=== PATIENT | female | born 1955 | race American Indian/Alaskan Native ===

== ENCOUNTER 2017-01-23 12:58 | Day surgery (SDC) | payer OTHER ==
[2017-01-23] MEDS ORDERED: Lidocaine 1% 30 ML SDV INJECT ONE ×4 (12:59→13:59)
[2017-01-23 14:47] VITALS: BP 154/62
--- NOTE | 2017-01-23 15:07 | OR ---
DATE: 01/23/2017 PREOPERATIVE DIAGNOSES: 1. Scalp lipoma. 2. Right shoulder lipoma. POSTOPERATIVE DIAGNOSES: 1. Scalp lipoma. 2. Right shoulder lipoma. PROCEDURES: 1. Removal of scalp lipoma. 2. Removal of right shoulder lipoma. SPECIMENS: 1. Right shoulder lipoma. 2. Scalp lipoma. ESTIMATED BLOOD LOSS: Minimal. ANESTHESIA: Local. COMPLICATIONS: None. SYSTEM ADMINISTRATION ADVISOR SURGEON: Lio [place], PGY-III, . INDICATION FOR PROCEDURE: Earline Oneill is a 61-year-old female who presents with symptoms and signs of lipomas to her posterior scalp and right shoulder. She is requesting removal of these after she has seen Dr. Johnston previously and now wants them removed. The risks and benefits were discussed by Dr. Lazar and myself, and the patient wished to proceed with surgery at this time. DETAILS OF THE PROCEDURE: The patient was brought to the operating room, placed in the left lateral decubitus position. She was prepped and draped in standard sterile fashion. Procedural time-out was performed, and all were in agreement. Local anesthetic was injected over the preplanned incision site over the right shoulder and around the lipoma. Incision was made and carried down the subcutaneous tissues. Electrocautery was used to dissect down to the lipoma. The lipoma was then removed in its entirety dissecting around the outside of the lipoma. This was removed. There was minimal bleeding that was controlled with electrocautery. This was closed with a 2-0 Vicryl and a 4-0 Monocryl with Mastisol, Steri-Strips, and sterile dressings placed. We then turned our attention to the posterior scalp. Local anesthetic was infiltrated. A transverse incision was made and carried down through the subcutaneous tissue. Electrocautery was used for hemostasis. We then dissected around the lipoma in its entirety, and it was removed. This was then closed again with 2-0 Vicryl and 4-0 Monocryl. Hemostasis was reassured prior to closing. Dermabond was placed over top of this. She tolerated the procedure well without any complications. She was transferred back to the recovery area in stable condition. Dr. Trae Lazar was present and scribed for the entire portions of the procedure. [facility] #: [id number]
== END 2017-01-23 14:45 | disposition home or self-care (01) ==
LOC: DL.SDS 12:58 → DL.GSCL 12:58 → EDSTATUS 13:00 → DL.SDS 14:45
PROVIDERS: ATTEND Surgery
DX: D17.0 Benign lipomatous neoplasm of skin and subcutaneous tissue of head, face and neck (principal); D17.21 Benign lipomatous neoplasm of skin and subcutaneous tissue of right arm; I10 Essential (primary) hypertension; E11.9 Type 2 diabetes mellitus without complications; J45.909 Unspecified asthma, uncomplicated; E78.5 Hyperlipidemia, unspecified; Z98.890 Other specified postprocedural states

== ENCOUNTER 2018-09-25 13:32 | Emergency (ER) | payer MEDICAID, OTHER ==
[2018-09-25 13:47] VITALS: BP 132/59
--- NOTE | 2018-09-25 15:05 | CR ---
Clinical history: 63-year-old female emergency department who is "unable to lift right leg". Dictation: AP lateral lumbosacral spine films. Decreased anterior vertical height (hyperflexion compression) L1 vertebral body with associated hypertrophic "buttressing" marginal spurs (intervertebral disc space narrowing T12-L1) unchanged as compared to CT exam to June 2008.. Homogeneous normal age and gender appropriate bone mineral density. Hypertrophic marginal spondylosis nearly all levels of the lumbar spine. No sign of pathologic skeletal lesion, acute lumbar fracture, spondylolisthesis or abnormal intervertebral disc space narrowing. Symmetric spacing normal-appearing SI joints (surgical clips right upper quadrant abdomen). Lung bases clear. CONCLUSION: Old L1 trauma. Chronic hypertrophic arthritic spondylosis. No new plain film abnormality lumbosacral spine.
--- NOTE | 2018-09-26 11:45 | EDM.PDOC ---
Scribed by Johanna Schneider 09/25/18 1489 for Nesha Aguila NP ED HPI GENERAL MEDICAL PROBLEM - General Chief Complaint: Lower Extremity Injury/Pain Stated Complaint: AMBULANCE Time Seen by Provider: 09/25/18 14:16 Source of Information: Reports: Patient, EMS, EMS Notes Reviewed, RN, RN Notes Reviewed History Limitations: Reports: No Limitations - History of Present Illness INITIAL COMMENTS - FREE TEXT/NARRATIVE: Patient presented to ER per [facility] with complaint of not being able to move her right leg. She states it felt heavy She denies any numbness or tingling and denies pain. She also denies any saddle anesthesia. She denies incontinence of urine or bowel. She admits to chronic back pain. She complains of sciatica down right leg last night. She had fever and chills last night. Onset: Gradual Duration: Getting Worse Location: Reports: Lower Extremity, Right Quality: Reports: Ache Severity: Moderate Improves with: Reports: None Worsens with: Reports: None Associated Symptoms: Reports: No Other Symptoms - Related Data Allergies Allergy/AdvReac Type Severity Reaction Status Date / Time No Known Allergies Allergy Verified 09/25/18 13:46 Home Meds: Home Meds Aspirin [Lo-Dose Aspirin EC] 81 mg PO DAILY 02/17/16 [History] Lisinopril 40 mg PO DAILY 02/17/16 [History] Simvastatin [Zocor] 40 mg PO DAILY 02/17/16 [History] Vitamin B Complex/Minerals [Sm Stress Formula+Zinc Tablet] 1 tab PO DAILY [History] glyBURIDE [Glyburide] 10 mg PO BID 02/17/16 [History] metFORMIN [Glucophage] 1,000 mg PO BID 02/17/16 [History] Gabapentin [Neurontin] 600 mg PO TID 11/12/16 [History] sitaGLIPtin Phos/Metformin HCl [Janumet 50-500 MG] 1 each PO DAILY 11/12/16 [ History] Insulin Detemir [Levemir] 15 unit SQ DAILY 01/23/17 [History] Albuterol Sulfate [Proair Hfa] 2 puff INH QID PRN 09/25/18 [History] Atropine Sulfate In 0.9% NaCl [Atropine 0.01%-Ns Eye Drops] 10 ml OP ASDIRECTED 09/25/18 [History] Brimonidine Tartrate 10 ml OP ASDIRECTED 09/25/18 [History] Cholecalciferol (Vitamin D3) [Vitamin D3] 1 tab PO DAILY 09/25/18 [History] Dorzolamide HCl/Timolol Maleat [Dorzolamide-Timolol Eye Drops] 1 drop EYEBOTH ASDIRECTED 09/25/18 [History] Multivitamin-Min/Iron/FA/Vit K [Multi-Day Plus Minerals Tablet] 1 tab PO DAILY 09/25/18 [History] Past Medical History HEENT History: Reports: Impaired Vision 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 Cardiovascular History: Reports: High Cholesterol, Hypertension Respiratory History: Reports: Asthma Gastrointestinal History: Reports: None Genitourinary History: Reports: None ORDER PACKER OR PACKAGER History: Reports: None Musculoskeletal History: Reports: Arthritis, Back Pain, Chronic Neurological History: Reports: None Psychiatric History: Reports: None Endocrine/Metabolic History: Reports: Diabetes, Type II Hematologic History: Reports: None Immunologic History: Reports: None Oncologic (Cancer) History: Reports: None Dermatologic History: Reports: None - Infectious Disease History Infectious Disease History: Reports: Chicken Pox - Past Surgical History Head Surgeries/Procedures: Reports: None Other Musculoskeletal Surgeries/Procedures:: fractured back when younger Social & Family History - Tobacco Use Smoking Status *Q: Former Smoker Years of Tobacco use: 41 Packs/Tins Daily: 0.5 Used Tobacco, but Quit: Yes Month/Year Tobacco Last Used: august Second Hand Smoke Exposure: No - Caffeine Use Caffeine Use: Reports: Coffee, Tea - Recreational Drug Use Recreational Drug Use: No Review of Systems - Review of Systems Review Of Systems: ROS reveals no pertinent complaints other than HPI. ED EXAM, GENERAL - Physical Exam Exam: See Below Exam Limited By: No Limitations General Appearance: Alert, WD/WN, No Apparent Distress Eye Exam: Bilateral Eye: EOMI, Normal Inspection, PERRL Ears: Normal External Exam, Normal Canal, Hearing Grossly Normal, Normal TMs Nose: Normal Inspection, Normal Mucosa, No Blood Throat/Mouth: Normal Inspection, Normal Lips, Normal Teeth, Normal Gums, Normal Oropharynx, Normal Voice, No Airway Compromise Head: Atraumatic, Normocephalic Neck: Normal Inspection, Supple, Non-Tender, Full Range of Motion Respiratory/Chest: Crackles (bases bilateral) Cardiovascular: Normal Peripheral Pulses, Regular Rate, Rhythm, No Edema, No Gallop, No JVD, No Murmur, No Rub GI/Abdominal: Normal Bowel Sounds, Soft, Non-Tender, No Organomegaly, No Distention, No Abnormal Bruit, No Mass (Female) Exam: Deferred Rectal (Female) Exam: Deferred Back Exam: Normal Inspection, Full Range of Motion, NT Extremities: Other (Weak right leg. Unable to left leg off bed.) Neurological: Alert, Oriented, CN II-XII Intact, Normal Cognition, Normal Gait, Normal Reflexes, No Motor/Sensory Deficits Psychiatric: Normal Affect, Normal Mood Skin Exam: Warm, Dry, Intact, Normal Color, No Rash Lymphatic: No Adenopathy Course - Vital Signs Last Recorded V/S: Last Vital Signs Temp 97.3 F 09/25/18 13:34 Pulse 88 09/25/18 13:34 Resp 16 09/25/18 13:34 BP 132/59 L 09/25/18 13:34 Pulse Ox 99 09/25/18 13:34 - Radiology Interpretation Free Text/Narrative:: Lumbosacral spine x-ray: Old L1 trauma. Chronic hypertrophic arthritic spondylosis. No new plain film abnormality lumbosacral spine. See rad report. - Re-Assessments/Exams Free Text/Narrative Re-Assessment/Exam: 09/25/18 16:02 Leg heaviness has resolved while being in the ER. Pt is able to lift right leg and hold it up. Able to stand on it and transfer to wheelchair. Departure - Departure Time of Disposition: 16:01 Disposition: Home, Self-Care 01 Condition: Fair Clinical Impression: Right sided sciatica - Discharge Information *PRESCRIPTION DRUG MONITORING PROGRAM REVIEWED*: No *COPY OF PRESCRIPTION DRUG MONITORING REPORT IN PATIENT KALEB: No Instructions: Radicular Pain, Sciatica, [id number] Forms: ED Department Discharge Additional Instructions: Follow up with your primary care facility Do not sleep in the recliner Return to ER with any worsening symptoms I have read and agree with the documentation that has been completed regarding this visit. By signing this record, I attest that the documentation was completed in my physical presence and is an accurate record of the encounter.
== END 2018-09-25 16:16 | disposition home or self-care (01) ==
LOC: DL.ED 13:32
DX: M54.31 Sciatica, right side (principal); E78.00 Pure hypercholesterolemia, unspecified; I10 Essential (primary) hypertension; J45.909 Unspecified asthma, uncomplicated; E11.9 Type 2 diabetes mellitus without complications; Z87.891 Personal history of nicotine dependence; Z79.82 Long term (current) use of aspirin; Z79.899 Other long term (current) drug therapy; Z79.84 Long term (current) use of oral hypoglycemic drugs
CPT/HCPCS: 72100; 99283-25

== ENCOUNTER 2018-10-15 15:35 | Emergency (ER) | payer MEDICAID ==
--- NOTE | 2018-10-15 15:58 | CT ---
Clinical history: 63-year-old female with extremely low blood sugar and multiple falls. TECHNIQUE: Volume acquisition of data emergency unenhanced CT scan of the cervical spine (motion artifact) obtained while the patient was lying supine on the Siemens multi slice scanner [place], [place]. All data archived in the PACS system for storage, reformatting axial/sagittal/coronal planes and study. Interpretation: No sign of prevertebral soft tissue swelling, cervical fracture, spondylolisthesis or jumped locked facet. Reactive atlantoaxial sclerosis and hypertrophic marginal/uncinate spur formation several levels mid and lower cervical spine. Interspace narrowing C6-7. Lung apices clear. CONCLUSION: No fractures.
--- NOTE | 2018-10-15 16:03 | EDM.PDOC ---
<Samuel Fernandez - Last Filed: 10/15/18 20:33> ED HPI GENERAL MEDICAL PROBLEM - General Chief Complaint: Neurological Problem Stated Complaint: AMBULANCE Time Seen by Provider: 10/15/18 15:40 - Related Data Allergies Allergy/AdvReac Type Severity Reaction Status Date / Time No Known Allergies Allergy Verified 10/15/18 15:48 Home Meds: Home Meds Aspirin [Lo-Dose Aspirin EC] 81 mg PO DAILY 02/17/16 [History] Lisinopril 40 mg PO DAILY 02/17/16 [History] Simvastatin [Zocor] 40 mg PO DAILY 02/17/16 [History] Vitamin B Complex/Minerals [Sm Stress Formula+Zinc Tablet] 1 tab PO DAILY [History] glyBURIDE [Glyburide] 10 mg PO BID 02/17/16 [History] metFORMIN [Glucophage] 1,000 mg PO BID 02/17/16 [History] Gabapentin [Neurontin] 600 mg PO TID 11/12/16 [History] sitaGLIPtin Phos/Metformin HCl [Janumet 50-500 MG] 1 each PO DAILY 11/12/16 [ History] Insulin Detemir [Levemir] 15 unit SQ DAILY 01/23/17 [History] Albuterol Sulfate [Proair Hfa] 2 puff INH QID PRN 09/25/18 [History] Atropine Sulfate In 0.9% NaCl [Atropine 0.01%-Ns Eye Drops] 10 ml OP ASDIRECTED 09/25/18 [History] Brimonidine Tartrate 10 ml OP ASDIRECTED 09/25/18 [History] Cholecalciferol (Vitamin D3) [Vitamin D3] 1 tab PO DAILY 09/25/18 [History] Dorzolamide HCl/Timolol Maleat [Dorzolamide-Timolol Eye Drops] 1 drop EYEBOTH ASDIRECTED 09/25/18 [History] Multivitamin-Min/Iron/FA/Vit K [Multi-Day Plus Minerals Tablet] 1 tab PO DAILY 09/25/18 [History] Course - Vital Signs Last Recorded V/S: Last Vital Signs Temp 97.4 F 10/15/18 18:25 Pulse 86 10/15/18 18:25 Resp 18 10/15/18 18:25 BP 155/63 H 10/15/18 18:25 Pulse Ox 100 10/15/18 18:25 - Orders/Labs/Meds Orders: Active Orders 24 hr Category Date Time Status EKG Documentation Completion [RC] STAT Care 10/15/18 17:06 Active EKG Documentation Completion [RC] STAT Care 10/15/18 20:00 Active Labs: Laboratory Tests 10/15/18 10/15/18 10/15/18 Range/Units 15:40 15:59 15:59 WBC 13.3 H (5.0-10.0) 10^3/uL RBC 3.63 L (4.2-5.4) 10^6/uL Hgb 9.2 L D (12.0-16.0) g/dL Hct 28.4 L (37.0-47.0) % MCV 78.2 L D (80-100) fL MCH 25.3 L (27.0-34.0) pg MCHC 32.4 L (33.0-35.0) g/dL Plt Count 515 H D (150-450) 10^3/uL Neut % (Auto) 78.6 H (42.2-75.2) % Lymph % (Auto) 13.5 L (20.5-50.1) % [place] % (Auto) 6.2 (2-8) % Eos % (Auto) 1.5 (1.0-3.0) % Baso % (Auto) 0.2 (0.0-1.0) % PT (9.0-12.0) SEC INR (0.9-1.2) Sodium 129 L (135-145) mmol/L Potassium 3.6 (3.6-5.0) mmol/L Chloride 97 L (101-111) mmol/L Carbon Dioxide 22.0 (21.0-31.0) mmol/L Anion Gap 13.6 BUN 12 (7-18) mg/dL Creatinine 1.1 (0.6-1.3) mg/dL Est Cr Clr Drug Dosing TNP Estimated GFR (MDRD) 50 BUN/Creatinine Ratio 10.90 Glucose 142 H (74-105) mg/dL POC Glucose 177 H (70-105) mg/dl Calcium 7.8 L D (8.4-10.2) mg/dl Magnesium 2.1 (1.8-2.5) mg/dL Total Bilirubin 0.4 (0.2-1.0) mg/dL AST 20 (10-42) IU/L ALT 12 (10-60) IU/L Alkaline Phosphatase 89 (42-121) IU/L Troponin I 0.02 (0.00-0.02) ng/ml Total Protein 7.4 (6.7-8.2) g/dl Albumin 2.6 L (3.2-5.5) g/dl Globulin 4.8 Albumin/Globulin Ratio 0.54 Urine Color (YELLOW) Urine Appearance (CLEAR) Urine pH (5.0-9.0) Ur Specific [place] (1.005-1.030) Urine Protein (NEGATIVE) Urine Glucose (UA) (NEGATIVE) Urine Ketones (NEGATIVE) Urine Occult Blood (NEGATIVE) Urine Nitrite (NEGATIVE) Urine Bilirubin (NEGATIVE) Urine Urobilinogen (0.2-1.0) mg/dL Ur Leukocyte Esterase (NEGATIVE) Urine RBC /HPF Urine WBC (0-5/HPF) /HPF Ur Epithelial Cells (NOT SEEN) /HPF Urine Bacteria (0-FEW/HPF) /HPF Urine Mucus (NOT SEEN) /LPF Urine Opiates Screen (NEGATIVE) Ur Oxycodone Screen (NEGATIVE) Urine Methadone Screen (NEGATIVE) Ur Barbiturates Screen (NEGATIVE) U Tricyclic Antidepress (NEGATIVE) Ur Phencyclidine Scrn (NEGATIVE) Ur Amphetamine Screen (NEGATIVE) U Methamphetamines Scrn (NEGATIVE) Urine MDMA Screen (NEGATIVE) U Benzodiazepines Scrn (NEGATIVE) Urine Cocaine Screen (NEGATIVE) U Marijuana (THC) Screen (NEGATIVE) Ethyl Alcohol < 5 mg/dL 10/15/18 10/15/18 10/15/18 Range/Units 15:59 16:24 16:24 WBC (5.0-10.0) 10^3/uL RBC (4.2-5.4) 10^6/uL Hgb (12.0-16.0) g/dL Hct (37.0-47.0) % MCV (80-100) fL MCH (27.0-34.0) pg MCHC (33.0-35.0) g/dL Plt Count (150-450) 10^3/uL Neut % (Auto) (42.2-75.2) % Lymph % (Auto) (20.5-50.1) % [place] % (Auto) (2-8) % Eos % (Auto) (1.0-3.0) % Baso % (Auto) (0.0-1.0) % PT 10.8 (9.0-12.0) SEC INR 1.1 (0.9-1.2) Sodium (135-145) mmol/L Potassium (3.6-5.0) mmol/L Chloride (101-111) mmol/L Carbon Dioxide (21.0-31.0) mmol/L Anion Gap BUN (7-18) mg/dL Creatinine (0.6-1.3) mg/dL Est Cr Clr Drug Dosing Estimated GFR (MDRD) BUN/Creatinine Ratio Glucose (74-105) mg/dL POC Glucose (70-105) mg/dl Calcium (8.4-10.2) mg/dl Magnesium (1.8-2.5) mg/dL Total Bilirubin (0.2-1.0) mg/dL AST (10-42) IU/L ALT (10-60) IU/L Alkaline Phosphatase (42-121) IU/L Troponin I (0.00-0.02) ng/ml Total Protein (6.7-8.2) g/dl Albumin (3.2-5.5) g/dl Globulin Albumin/Globulin Ratio Urine Color Yellow (YELLOW) Urine Appearance Slightly cloudy (CLEAR) Urine pH 5.5 (5.0-9.0) Ur Specific [place] 1.010 (1.005-1.030) Urine Protein Trace H (NEGATIVE) Urine Glucose (UA) Negative (NEGATIVE) Urine Ketones Negative (NEGATIVE) Urine Occult Blood Small H (NEGATIVE) Urine Nitrite Negative (NEGATIVE) Urine Bilirubin Negative (NEGATIVE) Urine Urobilinogen 0.2 (0.2-1.0) mg/dL Ur Leukocyte Esterase Small H (NEGATIVE) Urine RBC 5-10 H /HPF Urine WBC 10-20 H (0-5/HPF) /HPF Ur Epithelial Cells Few (NOT SEEN) /HPF Urine Bacteria Many H (0-FEW/HPF) /HPF Urine Mucus Few H (NOT SEEN) /LPF Urine Opiates Screen Negative (NEGATIVE) Ur Oxycodone Screen Negative (NEGATIVE) Urine Methadone Screen Negative (NEGATIVE) Ur Barbiturates Screen Negative (NEGATIVE) U Tricyclic Antidepress Negative (NEGATIVE) Ur Phencyclidine Scrn Negative (NEGATIVE) Ur Amphetamine Screen Negative (NEGATIVE) U Methamphetamines Scrn Negative (NEGATIVE) Urine MDMA Screen Negative (NEGATIVE) U Benzodiazepines Scrn Negative (NEGATIVE) Urine Cocaine Screen Negative (NEGATIVE) U Marijuana (THC) Screen Negative (NEGATIVE) Ethyl Alcohol mg/dL 10/15/18 Range/Units 19:55 WBC (5.0-10.0) 10^3/uL RBC (4.2-5.4) 10^6/uL Hgb (12.0-16.0) g/dL Hct (37.0-47.0) % MCV (80-100) fL MCH (27.0-34.0) pg MCHC (33.0-35.0) g/dL Plt Count (150-450) 10^3/uL Neut % (Auto) (42.2-75.2) % Lymph % (Auto) (20.5-50.1) % [place] % (Auto) (2-8) % Eos % (Auto) (1.0-3.0) % Baso % (Auto) (0.0-1.0) % PT (9.0-12.0) SEC INR (0.9-1.2) Sodium (135-145) mmol/L Potassium (3.6-5.0) mmol/L Chloride (101-111) mmol/L Carbon Dioxide (21.0-31.0) mmol/L Anion Gap BUN (7-18) mg/dL Creatinine (0.6-1.3) mg/dL Est Cr Clr Drug Dosing Estimated GFR (MDRD) BUN/Creatinine Ratio Glucose (74-105) mg/dL POC Glucose (70-105) mg/dl Calcium (8.4-10.2) mg/dl Magnesium (1.8-2.5) mg/dL Total Bilirubin (0.2-1.0) mg/dL AST (10-42) IU/L ALT (10-60) IU/L Alkaline Phosphatase (42-121) IU/L Troponin I 0.06 H* (0.00-0.02) ng/ml Total Protein (6.7-8.2) g/dl Albumin (3.2-5.5) g/dl Globulin Albumin/Globulin Ratio Urine Color (YELLOW) Urine Appearance (CLEAR) Urine pH (5.0-9.0) Ur Specific [place] (1.005-1.030) Urine Protein (NEGATIVE) Urine Glucose (UA) (NEGATIVE) Urine Ketones (NEGATIVE) Urine Occult Blood (NEGATIVE) Urine Nitrite (NEGATIVE) Urine Bilirubin (NEGATIVE) Urine Urobilinogen (0.2-1.0) mg/dL Ur Leukocyte Esterase (NEGATIVE) Urine RBC /HPF Urine WBC (0-5/HPF) /HPF Ur Epithelial Cells (NOT SEEN) /HPF Urine Bacteria (0-FEW/HPF) /HPF Urine Mucus (NOT SEEN) /LPF Urine Opiates Screen (NEGATIVE) Ur Oxycodone Screen (NEGATIVE) Urine Methadone Screen (NEGATIVE) Ur Barbiturates Screen (NEGATIVE) U Tricyclic Antidepress (NEGATIVE) Ur Phencyclidine Scrn (NEGATIVE) Ur Amphetamine Screen (NEGATIVE) U Methamphetamines Scrn (NEGATIVE) Urine MDMA Screen (NEGATIVE) U Benzodiazepines Scrn (NEGATIVE) Urine Cocaine Screen (NEGATIVE) U Marijuana (THC) Screen (NEGATIVE) Ethyl Alcohol mg/dL Meds: Medications Discontinued Medications Generic Name Dose Route Start Last Admin Trade Name Cory PRN Reason Stop Dose Admin Ketorolac Tromethamine 30 mg 10/15/18 20:54 10/15/18 21:36 Toradol IVPUSH 10/15/18 20:55 30 mg ONETIME ONE Administration Nitrofurantoin Macrocrystals 100 mg 10/15/18 18:13 10/15/18 18:22 Macrobid PO 10/15/18 18:14 100 mg ONETIME ONE Administration Tramadol HCl 50 mg 10/15/18 18:05 10/15/18 18:09 Ultram PO 10/15/18 18:06 50 mg ONETIME ONE Administration - Re-Assessments/Exams Free Text/Narrative Re-Assessment/Exam: 10/15/18 20:[address] Shay @ who kindly accepted pt. Departure - Departure Time of Disposition: 20:50 Disposition: DC/Tfer to Acute Hospital 02 Condition: Fair Clinical Impression: Non-STEMI (non-ST elevated myocardial infarction), Hypoglycemia UTI (urinary tract infection) Qualifiers: Urinary tract infection type: acute cystitis Hematuria presence: without hematuria Qualified Code(s): N30.00 - Acute cystitis without hematuria - Discharge Information Referrals: PCP,None [Primary Care Provider] - Forms: Interfacility Transfer EMTALA Additional Instructions: RX: Macrobid - My Orders Last 24 Hours: My Active Orders 10/15/18 17:06 EKG Documentation Completion [RC] STAT 10/15/18 20:00 EKG Documentation Completion [RC] STAT - Assessment/Plan Last 24 Hours: My Active Orders 10/15/18 17:06 EKG Documentation Completion [RC] STAT 10/15/18 20:00 EKG Documentation Completion [RC] STAT <Nesha Aguila - Last Filed: 10/16/18 18:04> ED HPI GENERAL MEDICAL PROBLEM - General Source of Information: Reports: Patient, EMS, EMS Notes Reviewed, Family, RN, RN Notes Reviewed History Limitations: Reports: No Limitations - History of Present Illness INITIAL COMMENTS - FREE TEXT/NARRATIVE: Pt to Er per [facility] with c/o stroke like sx. EMS reports blood glucose on scene of 53, oral glucose give, up to 61. ALS arrived and IV placed. 1 amp of D50 given. Blood glucose up to 186. Pt a&o upon arrival, c-collar in place due to c/ o falls x2 at home today. Pt and family are unsure of LOC with falls. Pt c/o right rib pain. Rates pain 5/10. Pt states she last felt normal prior to going to the BR at home, just prior to EMS arrival. States she felt light headed at that time. States she is feeling much better upon arrival. Admits to hx of DMII , HTN, hx of MD, Lupus, and blind in the right eye for 1 year. Onset: Today, Sudden Right Chest Pain Score (Numeric/FACES): 5 Past Medical History HEENT History: Reports: Impaired Vision 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 Cardiovascular History: Reports: High Cholesterol, Hypertension Respiratory History: Reports: Asthma Gastrointestinal History: Reports: None Genitourinary History: Reports: None [employer] History: Reports: None Musculoskeletal History: Reports: Arthritis, Back Pain, Chronic Neurological History: Reports: None Psychiatric History: Reports: None Endocrine/Metabolic History: Reports: Diabetes, Type II Hematologic History: Reports: None Immunologic History: Reports: None Oncologic (Cancer) History: Reports: None Dermatologic History: Reports: None - Infectious Disease History Infectious Disease History: Reports: Chicken Pox - Past Surgical History Head Surgeries/Procedures: Reports: None Other Musculoskeletal Surgeries/Procedures:: fractured back when younger Social & Family History - Caffeine Use Caffeine Use: Reports: Coffee, Tea ED ROS GENERAL - Review of Systems Review Of Systems: ROS reveals no pertinent complaints other than HPI. ED EXAM, NEURO - Physical Exam Exam: See Below Exam Limited By: No Limitations General Appearance: Alert, WD/WN, No Apparent Distress Eye Exam: Bilateral Eye: Other (right pupil 4 fixed cataract. Blind in right eye x1 year. Left pupil 3 sluggish. ) Ears: Normal External Exam, Normal Canal, Hearing Grossly Normal, Normal TMs Nose: Normal Inspection, Normal Mucosa, No Blood Throat/Mouth: Normal Inspection, Normal Lips, Normal Teeth, Normal Gums, Normal Oropharynx, Normal Voice, No Airway Compromise Head Exam: Atraumatic, Normocephalic Neck: Normal Inspection, Supple, Non-Tender, Full Range of Motion Respiratory/Chest: Other (pain right anterior ribs. Crackles at bases bilateral. ) Cardiovascular: Normal Peripheral Pulses, Regular Rate, Rhythm, No Edema, No Gallop, No JVD, No Murmur, No Rub GI/Abdominal: Normal Bowel Sounds, Soft, Non-Tender, No Organomegaly, No Distention, No Abnormal Bruit, No Mass (Female) Exam: Deferred Rectal (Female) Exam: Deferred Neurological: Alert, Normal Mood/Affect, Normal Dorsiflexion, CN II-XII Intact, Normal Plantar Flexion, Normal Gait, Normal Reflexes, No Motor/Sensory Deficits , Oriented x 3 Back Exam: Normal Inspection, Full Range of Motion, NT Extremities: Other (decreased range of motion) Psychiatric: Normal Affect, Normal Mood Skin Exam: Warm, Dry, Intact, Normal Color, No Rash Course - Orders/Labs/Meds Labs: Laboratory Tests 10/15/18 10/15/18 10/15/18 Range/Units 15:40 15:59 15:59 WBC 13.3 H (5.0-10.0) 10^3/uL RBC 3.63 L (4.2-5.4) 10^6/uL Hgb 9.2 L D (12.0-16.0) g/dL Hct 28.4 L (37.0-47.0) % MCV 78.2 L D (80-100) fL MCH 25.3 L (27.0-34.0) pg MCHC 32.4 L (33.0-35.0) g/dL Plt Count 515 H D (150-450) 10^3/uL Neut % (Auto) 78.6 H (42.2-75.2) % Lymph % (Auto) 13.5 L (20.5-50.1) % [place] % (Auto) 6.2 (2-8) % Eos % (Auto) 1.5 (1.0-3.0) % Baso % (Auto) 0.2 (0.0-1.0) % PT (9.0-12.0) SEC INR (0.9-1.2) Sodium 129 L (135-145) mmol/L Potassium 3.6 (3.6-5.0) mmol/L Chloride 97 L (101-111) mmol/L Carbon Dioxide 22.0 (21.0-31.0) mmol/L Anion Gap 13.6 BUN 12 (7-18) mg/dL Creatinine 1.1 (0.6-1.3) mg/dL Est Cr Clr Drug Dosing TNP Estimated GFR (MDRD) 50 BUN/Creatinine Ratio 10.90 Glucose 142 H (74-105) mg/dL POC Glucose 177 H (70-105) mg/dl Calcium 7.8 L D (8.4-10.2) mg/dl Magnesium 2.1 (1.8-2.5) mg/dL Total Bilirubin 0.4 (0.2-1.0) mg/dL AST 20 (10-42) IU/L ALT 12 (10-60) IU/L Alkaline Phosphatase 89 (42-121) IU/L Troponin I 0.02 (0.00-0.02) ng/ml Total Protein 7.4 (6.7-8.2) g/dl Albumin 2.6 L (3.2-5.5) g/dl Globulin 4.8 Albumin/Globulin Ratio 0.54 Urine Color (YELLOW) Urine Appearance (CLEAR) Urine pH (5.0-9.0) Ur Specific [place] (1.005-1.030) Urine Protein (NEGATIVE) Urine Glucose (UA) (NEGATIVE) Urine Ketones (NEGATIVE) Urine Occult Blood (NEGATIVE) Urine Nitrite (NEGATIVE) Urine Bilirubin (NEGATIVE) Urine Urobilinogen (0.2-1.0) mg/dL Ur Leukocyte Esterase (NEGATIVE) Urine RBC /HPF Urine WBC (0-5/HPF) /HPF Ur Epithelial Cells (NOT SEEN) /HPF Urine Bacteria (0-FEW/HPF) /HPF Urine Mucus (NOT SEEN) /LPF Urine Opiates Screen (NEGATIVE) Ur Oxycodone Screen (NEGATIVE) Urine Methadone Screen (NEGATIVE) Ur Barbiturates Screen (NEGATIVE) U Tricyclic Antidepress (NEGATIVE) Ur Phencyclidine Scrn (NEGATIVE) Ur Amphetamine Screen (NEGATIVE) U Methamphetamines Scrn (NEGATIVE) Urine MDMA Screen (NEGATIVE) U Benzodiazepines Scrn (NEGATIVE) Urine Cocaine Screen (NEGATIVE) U Marijuana (THC) Screen (NEGATIVE) Ethyl Alcohol < 5 mg/dL 10/15/18 10/15/18 10/15/18 Range/Units 15:59 16:24 16:24 WBC (5.0-10.0) 10^3/uL RBC (4.2-5.4) 10^6/uL Hgb (12.0-16.0) g/dL Hct (37.0-47.0) % MCV (80-100) fL MCH (27.0-34.0) pg MCHC (33.0-35.0) g/dL Plt Count (150-450) 10^3/uL Neut % (Auto) (42.2-75.2) % Lymph % (Auto) (20.5-50.1) % [place] % (Auto) (2-8) % Eos % (Auto) (1.0-3.0) % Baso % (Auto) (0.0-1.0) % PT 10.8 (9.0-12.0) SEC INR 1.1 (0.9-1.2) Sodium (135-145) mmol/L Potassium (3.6-5.0) mmol/L Chloride (101-111) mmol/L Carbon Dioxide (21.0-31.0) mmol/L Anion Gap BUN (7-18) mg/dL Creatinine (0.6-1.3) mg/dL Est Cr Clr Drug Dosing Estimated GFR (MDRD) BUN/Creatinine Ratio Glucose (74-105) mg/dL POC Glucose (70-105) mg/dl Calcium (8.4-10.2) mg/dl Magnesium (1.8-2.5) mg/dL Total Bilirubin (0.2-1.0) mg/dL AST (10-42) IU/L ALT (10-60) IU/L Alkaline Phosphatase (42-121) IU/L Troponin I (0.00-0.02) ng/ml Total Protein (6.7-8.2) g/dl Albumin (3.2-5.5) g/dl Globulin Albumin/Globulin Ratio Urine Color Yellow (YELLOW) Urine Appearance Slightly cloudy (CLEAR) Urine pH 5.5 (5.0-9.0) Ur Specific [place] 1.010 (1.005-1.030) Urine Protein Trace H (NEGATIVE) Urine Glucose (UA) Negative (NEGATIVE) Urine Ketones Negative (NEGATIVE) Urine Occult Blood Small H (NEGATIVE) Urine Nitrite Negative (NEGATIVE) Urine Bilirubin Negative (NEGATIVE) Urine Urobilinogen 0.2 (0.2-1.0) mg/dL Ur Leukocyte Esterase Small H (NEGATIVE) Urine RBC 5-10 H /HPF Urine WBC 10-20 H (0-5/HPF) /HPF Ur Epithelial Cells Few (NOT SEEN) /HPF Urine Bacteria Many H (0-FEW/HPF) /HPF Urine Mucus Few H (NOT SEEN) /LPF Urine Opiates Screen Negative (NEGATIVE) Ur Oxycodone Screen Negative (NEGATIVE) Urine Methadone Screen Negative (NEGATIVE) Ur Barbiturates Screen Negative (NEGATIVE) U Tricyclic Antidepress Negative (NEGATIVE) Ur Phencyclidine Scrn Negative (NEGATIVE) Ur Amphetamine Screen Negative (NEGATIVE) U Methamphetamines Scrn Negative (NEGATIVE) Urine MDMA Screen Negative (NEGATIVE) U Benzodiazepines Scrn Negative (NEGATIVE) Urine Cocaine Screen Negative (NEGATIVE) U Marijuana (THC) Screen Negative (NEGATIVE) Ethyl Alcohol mg/dL 10/15/18 Range/Units 19:55 WBC (5.0-10.0) 10^3/uL RBC (4.2-5.4) 10^6/uL Hgb (12.0-16.0) g/dL Hct (37.0-47.0) % MCV (80-100) fL MCH (27.0-34.0) pg MCHC (33.0-35.0) g/dL Plt Count (150-450) 10^3/uL Neut % (Auto) (42.2-75.2) % Lymph % (Auto) (20.5-50.1) % [place] % (Auto) (2-8) % Eos % (Auto) (1.0-3.0) % Baso % (Auto) (0.0-1.0) % PT (9.0-12.0) SEC INR (0.9-1.2) Sodium (135-145) mmol/L Potassium (3.6-5.0) mmol/L Chloride (101-111) mmol/L Carbon Dioxide (21.0-31.0) mmol/L Anion Gap BUN (7-18) mg/dL Creatinine (0.6-1.3) mg/dL Est Cr Clr Drug Dosing Estimated GFR (MDRD) BUN/Creatinine Ratio Glucose (74-105) mg/dL POC Glucose (70-105) mg/dl Calcium (8.4-10.2) mg/dl Magnesium (1.8-2.5) mg/dL Total Bilirubin (0.2-1.0) mg/dL AST (10-42) IU/L ALT (10-60) IU/L Alkaline Phosphatase (42-121) IU/L Troponin I 0.06 H* (0.00-0.02) ng/ml Total Protein (6.7-8.2) g/dl Albumin (3.2-5.5) g/dl Globulin Albumin/Globulin Ratio Urine Color (YELLOW) Urine Appearance (CLEAR) Urine pH (5.0-9.0) Ur Specific [place] (1.005-1.030) Urine Protein (NEGATIVE) Urine Glucose (UA) (NEGATIVE) Urine Ketones (NEGATIVE) Urine Occult Blood (NEGATIVE) Urine Nitrite (NEGATIVE) Urine Bilirubin (NEGATIVE) Urine Urobilinogen (0.2-1.0) mg/dL Ur Leukocyte Esterase (NEGATIVE) Urine RBC /HPF Urine WBC (0-5/HPF) /HPF Ur Epithelial Cells (NOT SEEN) /HPF Urine Bacteria (0-FEW/HPF) /HPF Urine Mucus (NOT SEEN) /LPF Urine Opiates Screen (NEGATIVE) Ur Oxycodone Screen (NEGATIVE) Urine Methadone Screen (NEGATIVE) Ur Barbiturates Screen (NEGATIVE) U Tricyclic Antidepress (NEGATIVE) Ur Phencyclidine Scrn (NEGATIVE) Ur Amphetamine Screen (NEGATIVE) U Methamphetamines Scrn (NEGATIVE) Urine MDMA Screen (NEGATIVE) U Benzodiazepines Scrn (NEGATIVE) Urine Cocaine Screen (NEGATIVE) U Marijuana (THC) Screen (NEGATIVE) Ethyl Alcohol mg/dL Meds: Medications Discontinued Medications Generic Name Dose Route Start Last Admin Trade Name Cory PRN Reason Stop Dose Admin Ketorolac Tromethamine 30 mg 10/15/18 20:54 10/15/18 21:36 Toradol IVPUSH 10/15/18 20:55 30 mg ONETIME ONE Administration Nitrofurantoin Macrocrystals 100 mg 10/15/18 18:13 10/15/18 18:22 Macrobid PO 10/15/18 18:14 100 mg ONETIME ONE Administration Tramadol HCl 50 mg 10/15/18 18:05 10/15/18 18:09 Ultram PO 10/15/18 18:06 50 mg ONETIME ONE Administration - Radiology Interpretation Free Text/Narrative:: C Spine CT wo contrast: No Acute findings Head CT wo contrast: Negative Exam for age. Right rib xray with chest: No right rib fracture, signs of underlying lung contusion, atelectasis or dependent pleural effusion on the right. No ipsilateral pneumothorax Incidentally noted apparent chronic bronchiectasis, left lung base. Normal cardiac silhouette without alveolar edema or dependent effusion. No lung mass or hilar lymphadenopathy. No other lobar consolidation. See rad report Departure - Discharge Information *PRESCRIPTION DRUG MONITORING PROGRAM REVIEWED*: No *COPY OF PRESCRIPTION DRUG MONITORING REPORT IN PATIENT KALEB: No
--- NOTE | 2018-10-15 16:09 | CT ---
Clinical history: 63-year-old severely hypoglycemic female with loss of consciousness (several falls). Scan technique: Volume acquisition of data emergency unenhanced CT scan of the head and brain obtained with the patient was lying supine on the Siemens multi slice scanner [place], [place]. All data archived in the PACS system for storage, reformatting axial/sagittal/coronal planes and study (bone/brain windows). Interpretation: 1. Uniformly thick bony calvarium without sign of skull fracture or underlying brain contusion. No abnormal extracerebral/intracranial epidural or subdural hematoma. 2. Punctate midline pineal and symmetric choroid plexus calcifications. 3. *No sign of acute intracerebral/intraventricular/subarachnoid bleed. 4. No focal area of ischemic infarct or signs of encephalomalacia. No arachnoid cyst. 5. No hydrocephalus. 6. Cerebellum and brainstem unremarkable. 7. Symmetric clear pneumatization of the paranasal sinuses. Nasal septum deviated left of midline. Edentulous patient. CONCLUSION: Negative exam (for age).
[2018-10-15 16:24] LABS: ANION GAP 13.6; CHLORIDE,CL 97 mmol/L (101-111); SODIUM,NA 129 mmol/L (135-145)
--- NOTE | 2018-10-15 17:16 | CR ---
Clinical history: 63-year-old female pain right ribs (falls). Interpretation: *No right rib fracture, signs of underlying lung contusion, atelectasis or dependent pleural effusion on the right. No ipsilateral pneumothorax. (Surgical clips gallbladder fossa RUQ) Incidentally noted apparent chronic bronchiectasis, left lung base.. Normal cardiac silhouette without alveolar edema or dependent effusion. No lung mass or hilar lymphadenopathy. No other lobar consolidation.
[2018-10-15] MEDS ORDERED: traMADol 50 MG Tab PO ONE (18:05)
[2018-10-15] MEDS ORDERED: Nitrofurantoin Monohydrate/Macrocrystalline 100 MG Cap PO ONE (18:13)
[2018-10-15 18:26] VITALS: BP 155/63; PULSE 86
[2018-10-15] MEDS ORDERED: Ketorolac 30 MG/ML SDV IVPUSH ONE (20:54)
== END 2018-10-15 21:38 ==
LOC: DL.ED 15:35
DX: I21.4 Non-ST elevation (NSTEMI) myocardial infarction (principal); E11.649 Type 2 diabetes mellitus with hypoglycemia without coma; N30.00 Acute cystitis without hematuria; I10 Essential (primary) hypertension
CPT/HCPCS: 36415; 51798; 70450; 71101; 72125; 80053; 80305; 81001; 82962; 83735; 84484; 85025; 85610; 87086; 87088; 87186; 93005; 99285; A9270; G0480; J1885

== ENCOUNTER 2018-11-05 00:33 | Emergency (ER) | payer MEDICAID ==
[2018-11-05] MEDS ORDERED: Sodium Chloride 0.9% 10 ML Syringe FLUSH PRN (00:43)
[2018-11-05 00:45] VITALS: BP 169/62
[2018-11-05] MEDS ORDERED: HYDROmorphone 1 MG/ML Syringe IVPUSH ONE (00:58)
[2018-11-05] MEDS ORDERED: Ondansetron 4 MG/2 ML SDV IV ONE (00:58)
--- NOTE | 2018-11-05 01:08 | EDM.PDOC ---
ED HPI GENERAL MEDICAL PROBLEM - General Chief Complaint: Gastrointestinal Problem Stated Complaint: POST HEAR SURGERYLILIYA [id number] Time Seen by Provider: 11/05/18 00:50 Source of Information: Reports: Patient, Family, RN, RN Notes Reviewed History Limitations: Reports: No Limitations - History of Present Illness INITIAL COMMENTS - FREE TEXT/NARRATIVE: Pt to ER with family with c/o vomiting all day. Patient had a CABG done on . Was seen in the clinic yesterday for follow up and was switched to Tramadol for pain control. Patient states this morning she began vomiting. She states she has not been able to eat anything, and has not been able to take any of her medications today. Patient denies diarrhea, states she has not had a BM in 3-4 days. Admits to chills today. States unsure about fever. Admits to SOB at times. Rates pain 9/10 at incisional site and chest. Onset: Today, Sudden Mid-Sternal Chest Pain Score (Numeric/FACES): 9 - Related Data Allergies Allergy/AdvReac Type Severity Reaction Status Date / Time No Known Allergies Allergy Verified 10/15/18 15:48 Home Meds: Home Meds Aspirin [Lo-Dose Aspirin EC] 81 mg PO DAILY 02/17/16 [History] Lisinopril 40 mg PO DAILY 02/17/16 [History] Simvastatin [Zocor] 40 mg PO DAILY 02/17/16 [History] Vitamin B Complex/Minerals [Sm Stress Formula+Zinc Tablet] 1 tab PO DAILY [History] glyBURIDE [Glyburide] 10 mg PO BID 02/17/16 [History] metFORMIN [Glucophage] 1,000 mg PO BID 02/17/16 [History] Gabapentin [Neurontin] 600 mg PO TID 11/12/16 [History] sitaGLIPtin Phos/Metformin HCl [Janumet 50-500 MG] 1 each PO DAILY 11/12/16 [ History] Insulin Detemir [Levemir] 15 unit SQ DAILY 01/23/17 [History] Albuterol Sulfate [Proair Hfa] 2 puff INH QID PRN 09/25/18 [History] Atropine Sulfate In 0.9% NaCl [Atropine 0.01%-Ns Eye Drops] 10 ml OP ASDIRECTED 09/25/18 [History] Brimonidine Tartrate 10 ml OP ASDIRECTED 09/25/18 [History] Cholecalciferol (Vitamin D3) [Vitamin D3] 1 tab PO DAILY 09/25/18 [History] Dorzolamide HCl/Timolol Maleat [Dorzolamide-Timolol Eye Drops] 1 drop EYEBOTH ASDIRECTED 09/25/18 [History] Multivitamin-Min/Iron/FA/Vit K [Multi-Day Plus Minerals Tablet] 1 tab PO DAILY 09/25/18 [History] Past Medical History HEENT History: Reports: Impaired Vision 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 Cardiovascular History: Reports: High Cholesterol, Hypertension Respiratory History: Reports: Asthma Gastrointestinal History: Reports: None Genitourinary History: Reports: None 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 Musculoskeletal History: Reports: Arthritis, Back Pain, Chronic Neurological History: Reports: None Psychiatric History: Reports: None Endocrine/Metabolic History: Reports: Diabetes, Type II Hematologic History: Reports: None Immunologic History: Reports: None Oncologic (Cancer) History: Reports: None Dermatologic History: Reports: None - Infectious Disease History Infectious Disease History: Reports: Chicken Pox - Past Surgical History Head Surgeries/Procedures: Reports: None Cardiovascular Surgical History: Reports: Coronary Artery Bypass Other Musculoskeletal Surgeries/Procedures:: fractured back when younger Social & Family History - Family History Family Medical History: Noncontributory - Tobacco Use Smoking Status *Q: Never Smoker Second Hand Smoke Exposure: No - Caffeine Use Caffeine Use: Reports: Coffee, Tea - Recreational Drug Use Recreational Drug Use: No ED ROS GENERAL - Review of Systems Review Of Systems: ROS reveals no pertinent complaints other than HPI. ED EXAM, GI/ABD - Physical Exam Exam: See Below Exam Limited By: No Limitations General Appearance: Alert, WD/WN, No Apparent Distress Eyes: Bilateral: Normal Appearance, EOMI Ears: Normal External Exam, Hearing Grossly Normal Nose: Normal Inspection Throat/Mouth: Normal Inspection, Normal Voice, No Airway Compromise Head: Atraumatic, Normocephalic Neck: Normal Inspection, Full Range of Motion Respiratory/Chest: No Respiratory Distress, No Accessory Muscle Use, Crackles ( throughout). No: Chest Non-Tender (tender post CABG) Cardiovascular: Normal Peripheral Pulses, Regular Rate, Rhythm, No Edema, No Gallop, No JVD, No Murmur, No Rub GI/Abdominal Exam: Normal Bowel Sounds, Soft, Non-Tender, No Organomegaly, No Distention (Female) Exam: Deferred Rectal (Female) Exam: Deferred Back Exam: Normal Inspection, Full Range of Motion Extremities: Normal Inspection, Normal Range of Motion, Non-Tender, No Pedal Edema, Normal Capillary Refill Neurological: Alert, Oriented, CN II-XII Intact, Normal Cognition Psychiatric: Normal Affect, Normal Mood Skin Exam: Warm, Dry, Intact, Normal Color, No Rash Lymphatic: No Adenopathy Course - Vital Signs Last Recorded V/S: Last Vital Signs Temp 98.2 F 11/05/18 00:35 Pulse 104 H 11/05/18 00:35 Resp 18 11/05/18 00:35 BP 169/62 H 11/05/18 00:35 Pulse Ox 100 11/05/18 00:35 - Orders/Labs/Meds Orders: Active Orders 24 hr Category Date Time Status Peripheral IV Care [RC] . DIRECTED Care 11/05/18 00:43 Active Abdomen 2V AP Flat Upright [CR] Urgent Exams 11/05/18 01:31 Taken Peripheral IV Insertion Adult [OM.PC] Routine Oth 11/05/18 00:43 Ordered Labs: Laboratory Tests 11/05/18 11/05/18 Range/Units 00:44 00:44 WBC 8.1 (5.0-10.0) 10^3/uL RBC 3.83 L (4.2-5.4) 10^6/uL Hgb 10.4 L (12.0-16.0) g/dL Hct 32.0 L (37.0-47.0) % MCV 83.6 D (80-100) fL MCH 27.2 (27.0-34.0) pg MCHC 32.5 L (33.0-35.0) g/dL Plt Count 304 D (150-450) 10^3/uL Neut % (Auto) 75.1 (42.2-75.2) % Lymph % (Auto) 18.8 L (20.5-50.1) % [place] % (Auto) 4.9 (2-8) % Eos % (Auto) 0.5 L (1.0-3.0) % Baso % (Auto) 0.7 (0.0-1.0) % Sodium 126 L (135-145) mmol/L Potassium 3.3 L (3.6-5.0) mmol/L Chloride 94 L (101-111) mmol/L Carbon Dioxide 19.0 L (21.0-31.0) mmol/L Anion Gap 16.3 BUN 15 (7-18) mg/dL Creatinine 1.0 (0.6-1.3) mg/dL Est Cr Clr Drug Dosing 41.36 mL/min Estimated GFR (MDRD) 56 BUN/Creatinine Ratio 15.00 Glucose 86 (74-105) mg/dL Calcium 8.1 L (8.4-10.2) mg/dl Total Bilirubin 1.3 H (0.2-1.0) mg/dL AST 29 (10-42) IU/L ALT 15 (10-60) IU/L Alkaline Phosphatase 106 (42-121) IU/L Total Protein 8.0 (6.7-8.2) g/dl Albumin 3.5 (3.2-5.5) g/dl Globulin 4.5 Albumin/Globulin Ratio 0.78 Meds: Medications Discontinued Medications Generic Name Dose Route Start Last Admin Trade Name Freq PRN Reason Stop Dose Admin Hydromorphone HCl 1 mg 11/05/18 00:58 11/05/18 01:10 Dilaudid IVPUSH 11/05/18 00:59 1 mg ONETIME ONE Administration Ondansetron HCl 4 mg 11/05/18 00:58 11/05/18 01:09 Zofran IV 11/05/18 00:59 4 mg ONETIME ONE Administration Sodium Chloride 10 ml 11/05/18 00:43 11/05/18 00:44 Saline Flush FLUSH 10 ml ASDIRECTED PRN Administration Keep Vein Open - Radiology Interpretation Free Text/Narrative:: Flat and upright xray: FINDINGS: Gastrointestinal tract: Normal. No bowel dilation. Intraperitoneal space: Normal. No free air. Bones/joints: Unremarkable for age. IMPRESSION: No acute findings. Thank you for allowing us to participate in the care of your patient. Dictated and Authenticated by: Ozzy Magana MD See rad report Departure - Departure Time of Disposition: 04:25 Disposition: Home, Self-Care 01 Condition: Fair Clinical Impression: Constipation - Discharge Information *PRESCRIPTION DRUG MONITORING PROGRAM REVIEWED*: No *COPY OF PRESCRIPTION DRUG MONITORING REPORT IN PATIENT KALEB: No Instructions: Constipation, Adult, [id number], Nausea and Vomiting, Adult, [id number] Referrals: Brianne Harrison HOTEL REGISTRATION CLERK [Primary Care Provider] - Forms: ED Department Discharge Additional Instructions: May use over the counter stool softener as directed for constipation Drink plenty of water Take Tramadol as prescribed and stay on top of pain Follow up with your primary care facility May use Magnesium Citrate over the counter as directed Be up and ambulating more as tolerated - My Orders Last 24 Hours: My Active Orders 11/05/18 00:43 Peripheral IV Care [RC] . DIRECTED Peripheral IV Insertion Adult [OM.PC] Routine 11/05/18 01:31 Abdomen 2V AP Flat Upright [CR] Urgent - Assessment/Plan Last 24 Hours: My Active Orders 11/05/18 00:43 Peripheral IV Care [RC] . DIRECTED Peripheral IV Insertion Adult [OM.PC] Routine 11/05/18 01:31 Abdomen 2V AP Flat Upright [CR] Urgent
[2018-11-05 01:19] LABS: ANION GAP 16.3
== END 2018-11-05 04:17 | disposition home or self-care (01) ==
LOC: DL.ED 00:33
DX: K59.00 Constipation, unspecified (principal); I10 Essential (primary) hypertension; E78.00 Pure hypercholesterolemia, unspecified; E11.9 Type 2 diabetes mellitus without complications; Z79.4 Long term (current) use of insulin; Z79.899 Other long term (current) drug therapy; Z79.82 Long term (current) use of aspirin
CPT/HCPCS: 36415; 74019; 80053; 85025; 96374; 96375; 99283; J1170; J2405

== ENCOUNTER 2018-11-06 02:07 | Emergency (ER) | payer MEDICAID ==
[2018-11-06 02:38] VITALS: BP 131/72
[2018-11-06] MEDS ORDERED: Sodium Chloride 0.9% 1,000 ML IV ONE (02:43)
[2018-11-06] MEDS ORDERED: 50% Dextrose in Water 50 ML Syringe IVPUSH ONE ×2 (02:50→05:03)
[2018-11-06] MEDS ORDERED: Ondansetron 4 MG/2 ML SDV IV ONE (02:50)
[2018-11-06] MEDS ORDERED: 50% Dextrose in Water 50 ML Syringe ONE ×2 (02:52→05:04)
--- NOTE | 2018-11-06 02:58 | EDM.PDOC ---
ED HPI GENERAL MEDICAL PROBLEM - General Chief Complaint: Gastrointestinal Problem Stated Complaint: STILL VOMITING Time Seen by Provider: 11/06/18 02:45 Source of Information: Reports: Family History Limitations: Reports: Altered Mental Status - History of Present Illness INITIAL COMMENTS - FREE TEXT/NARRATIVE: This 63 yo female patient was brought to the ED due to not acting normally and having nausea/vomiting all day. The patient has a history of a CABG on 10/20/18 and has been having incisional pain since that time. The patient's family reports the patient was seen in the ED last night, but has continued to have nausea and vomiting throughout today. The family reports the patient's blood sugars have been low (50's -70's) throughout the day. The family has been attempting to give the patient her medications, but the patient has not been able to keep them down. The family reports the patient has been having loose bowel movements. The family reports the patient did fall causing increased incisional pain. Onset Date: 11/05/18 Duration: Constant Location: Reports: Chest, Generalized Quality: Reports: Other Severity: Moderate Improves with: Reports: None Worsens with: Reports: None Context: Reports: Other Associated Symptoms: Reports: Nausea/Vomiting, Other 0 Pain Score (Numeric/FACES): 0 - Related Data Allergies Allergy/AdvReac Type Severity Reaction Status Date / Time No Known Allergies Allergy Verified 11/06/18 02:33 Home Meds: Home Meds Aspirin [Lo-Dose Aspirin EC] 81 mg PO DAILY 02/17/16 [History] Lisinopril 40 mg PO DAILY 02/17/16 [History] Simvastatin [Zocor] 40 mg PO DAILY 02/17/16 [History] Vitamin B Complex/Minerals [Sm Stress Formula+Zinc Tablet] 1 tab PO DAILY [History] glyBURIDE [Glyburide] 10 mg PO BID 02/17/16 [History] metFORMIN [Glucophage] 1,000 mg PO BID 02/17/16 [History] Gabapentin [Neurontin] 600 mg PO TID 11/12/16 [History] sitaGLIPtin Phos/Metformin HCl [Janumet 50-500 MG] 1 each PO DAILY 11/12/16 [ History] Insulin Detemir [Levemir] 15 unit SQ DAILY 01/23/17 [History] Albuterol Sulfate [Proair Hfa] 2 puff INH QID PRN 09/25/18 [History] Atropine Sulfate In 0.9% NaCl [Atropine 0.01%-Ns Eye Drops] 10 ml OP ASDIRECTED 09/25/18 [History] Brimonidine Tartrate 10 ml OP ASDIRECTED 09/25/18 [History] Cholecalciferol (Vitamin D3) [Vitamin D3] 1 tab PO DAILY 09/25/18 [History] Dorzolamide HCl/Timolol Maleat [Dorzolamide-Timolol Eye Drops] 1 drop EYEBOTH ASDIRECTED 09/25/18 [History] Multivitamin-Min/Iron/FA/Vit K [Multi-Day Plus Minerals Tablet] 1 tab PO DAILY 09/25/18 [History] Past Medical History HEENT History: Reports: Impaired Vision 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 Cardiovascular History: Reports: High Cholesterol, Hypertension Respiratory History: Reports: Asthma Gastrointestinal History: Reports: None Genitourinary History: Reports: None 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 Musculoskeletal History: Reports: Arthritis, Back Pain, Chronic Neurological History: Reports: None Psychiatric History: Reports: None Endocrine/Metabolic History: Reports: Diabetes, Type II Hematologic History: Reports: None Immunologic History: Reports: None Oncologic (Cancer) History: Reports: None Dermatologic History: Reports: None - Infectious Disease History Infectious Disease History: Reports: Chicken Pox - Past Surgical History Head Surgeries/Procedures: Reports: None Cardiovascular Surgical History: Reports: Coronary Artery Bypass Other Musculoskeletal Surgeries/Procedures:: fractured back when younger Social & Family History - Family History Family Medical History: Noncontributory - Caffeine Use Caffeine Use: Reports: Coffee, Tea ED ROS GENERAL - Review of Systems Review Of Systems: ROS reveals no pertinent complaints other than HPI. ED EXAM, GI/ABD - Physical Exam Exam: See Below Exam Limited By: No Limitations General Appearance: Alert, WD/WN, Moderate Distress Eyes: Bilateral: Normal Appearance, EOMI Ears: Normal External Exam, Normal Canal, Hearing Grossly Normal, Normal TMs Nose: Normal Inspection, Normal Mucosa, No Blood Throat/Mouth: Normal Inspection, Normal Lips, Normal Teeth, Normal Gums, Normal Oropharynx, Normal Voice, No Airway Compromise Head: Atraumatic, Normocephalic Neck: Normal Inspection, Supple, Non-Tender, Full Range of Motion Respiratory/Chest: No Respiratory Distress, Lungs Clear, Normal Breath Sounds, No Accessory Muscle Use, Chest Non-Tender Cardiovascular: Normal Peripheral Pulses, Regular Rate, Rhythm, No Edema, No Gallop, No JVD, No Murmur, No Rub GI/Abdominal Exam: Normal Bowel Sounds, Soft, Non-Tender, No Organomegaly, No Distention, No Abnormal Bruit, No Mass, Pelvis Stable (Female) Exam: Deferred Rectal (Female) Exam: Deferred Back Exam: Normal Inspection, Full Range of Motion, NT Extremities: Normal Inspection, Normal Range of Motion, Non-Tender, Normal Capillary Refill, No Pedal Edema Neurological: Alert, CN II-XII Intact, Normal Cognition, Normal Gait, Normal Reflexes, No Motor/Sensory Deficits, Other (The patient indicated that she had anterior chest pain, but did not respond verbally. ) Psychiatric: Normal Affect, Normal Mood Skin Exam: Warm, Dry, Intact, Normal Color, No Rash Lymphatic: No Adenopathy Course - Vital Signs Last Recorded V/S: Last Vital Signs Temp 36.9 C 11/06/18 02:34 Pulse 84 11/06/18 02:34 Resp 16 11/06/18 02:34 BP 131/72 11/06/18 02:34 Pulse Ox 100 11/06/18 02:34 - Orders/Labs/Meds Orders: Active Orders 24 hr Category Date Time Status EKG Documentation Completion [RC] URGENT Care 11/06/18 02:58 Active Heparin Sodium/0.45% NaCl [Heparin 25,000 Units in 1/2 Med 11/06/18 04:17 Ordered NS 500 ML] 25,000 units in 500 ml IV TITRATE Medication Orders Heparin Sodium/Sodium Chloride (Heparin 25,000 Units In 1/2 Ns 500 Ml) 25,000 units in 500 mls @ 13.934 mls/hr IV TITRATE GRACE Labs: Laboratory Tests 11/06/18 11/06/18 11/06/18 Range/Units 02:46 02:50 02:50 WBC 6.3 (5.0-10.0) 10^3/uL RBC 3.54 L (4.2-5.4) 10^6/uL Hgb 9.7 L (12.0-16.0) g/dL Hct 29.2 L (37.0-47.0) % MCV 82.5 (80-100) fL MCH 27.4 (27.0-34.0) pg MCHC 33.2 (33.0-35.0) g/dL Plt Count 238 (150-450) 10^3/uL Neut % (Auto) 50.4 (42.2-75.2) % Lymph % (Auto) 40.2 (20.5-50.1) % [place] % (Auto) 7.0 (2-8) % Eos % (Auto) 2.2 (1.0-3.0) % Baso % (Auto) 0.2 (0.0-1.0) % Add Manual Diff Yes Neutrophils % (Manual) 52 (42-75) % Band Neutrophils % 5 % Lymphocytes % (Manual) 37 (20-50) % Monocytes % (Manual) 5 (2-8) % Eosinophils % (Manual) 1 (1-3) % Sodium 125 L (135-145) mmol/L Potassium 3.5 L (3.6-5.0) mmol/L Chloride 93 L (101-111) mmol/L Carbon Dioxide 19.0 L (21.0-31.0) mmol/L Anion Gap 16.5 BUN 22 H (7-18) mg/dL Creatinine 1.2 (0.6-1.3) mg/dL Est Cr Clr Drug Dosing 43.98 mL/min Estimated GFR (MDRD) 45 BUN/Creatinine Ratio 18.33 Glucose 35 L* (74-105) mg/dL POC Glucose 31 L* (70-105) mg/dl Calcium 8.0 L (8.4-10.2) mg/dl Total Bilirubin 1.6 H (0.2-1.0) mg/dL AST 57 H (10-42) IU/L ALT 18 (10-60) IU/L Alkaline Phosphatase 98 (42-121) IU/L Troponin I (0.00-0.02) ng/ml Total Protein 8.2 (6.7-8.2) g/dl Albumin 3.7 (3.2-5.5) g/dl Globulin 4.5 Albumin/Globulin Ratio 0.82 11/06/18 11/06/18 Range/Units 02:50 03:14 WBC (5.0-10.0) 10^3/uL RBC (4.2-5.4) 10^6/uL Hgb (12.0-16.0) g/dL Hct (37.0-47.0) % MCV (80-100) fL MCH (27.0-34.0) pg MCHC (33.0-35.0) g/dL Plt Count (150-450) 10^3/uL Neut % (Auto) (42.2-75.2) % Lymph % (Auto) (20.5-50.1) % [place] % (Auto) (2-8) % Eos % (Auto) (1.0-3.0) % Baso % (Auto) (0.0-1.0) % Add Manual Diff Neutrophils % (Manual) (42-75) % Band Neutrophils % % Lymphocytes % (Manual) (20-50) % Monocytes % (Manual) (2-8) % Eosinophils % (Manual) (1-3) % Sodium (135-145) mmol/L Potassium (3.6-5.0) mmol/L Chloride (101-111) mmol/L Carbon Dioxide (21.0-31.0) mmol/L Anion Gap BUN (7-18) mg/dL Creatinine (0.6-1.3) mg/dL Est Cr Clr Drug Dosing mL/min Estimated GFR (MDRD) BUN/Creatinine Ratio Glucose (74-105) mg/dL POC Glucose 171 H (70-105) mg/dl Calcium (8.4-10.2) mg/dl Total Bilirubin (0.2-1.0) mg/dL AST (10-42) IU/L ALT (10-60) IU/L Alkaline Phosphatase (42-121) IU/L Troponin I 0.12 H* (0.00-0.02) ng/ml Total Protein (6.7-8.2) g/dl Albumin (3.2-5.5) g/dl Globulin Albumin/Globulin Ratio Meds: Medications Generic Name Dose Route Start Last Admin Trade Name Freq PRN Reason Stop Dose Admin Heparin Sodium/Sodium Chloride 25,000 units in 500 mls @ 13.934 mls/hr 04:17 Heparin 25,000 Units In 1/2 Ns 500 Ml IV TITRATE GRACE 12 UNITS/KG/HR Discontinued Medications Generic Name Dose Route Start Last Admin Trade Name Freq PRN Reason Stop Dose Admin Aspirin 324 mg 11/06/18 03:43 11/06/18 04:04 Aspirin PO 11/06/18 03:44 324 mg ONETIME ONE Administration Dextrose/Water 50 ml 11/06/18 02:50 11/06/18 02:53 Dextrose 50% In Water IVPUSH 11/06/18 02:51 50 ml ONETIME ONE Administration Dextrose/Water Confirm 11/06/18 02:52 11/06/18 03:07 Dextrose 50% In Water Administered 11/06/18 02:53 Not Given Dose 50 ml .ROUTE .STK-MED ONE Heparin Sodium (Porcine) 4,000 units 11/06/18 04:17 Heparin Sodium IVPUSH 11/06/18 04:18 .BOLUS ONE Hydromorphone HCl 0.5 mg 11/06/18 04:19 Dilaudid IVPUSH 11/06/18 04:20 ONETIME ONE Sodium Chloride 1,000 mls @ 999 mls/hr 11/06/18 02:43 11/06/18 02:53 Normal Saline IV 11/06/18 03:43 999 mls/hr .BOLUS ONE Administration Ondansetron HCl 4 mg 11/06/18 02:50 11/06/18 03:10 Zofran IV 11/06/18 02:51 4 mg ONETIME ONE Administration - Re-Assessments/Exams Free Text/Narrative Re-Assessment/Exam: 11/06/18 03:01 Reassessment - The patient reports feeling better and was able to communicate verbally. The patient reports she does not feel nauseated at this time. 11/06/18 03:55 A call was placed to [facility] due to the patient's elevated Troponin level (no recent Troponin levels for comparison). The EKG was sent to [facility] along with the recent Troponin level for review by cardiology. Departure - Departure Time of Disposition: 04:23 Disposition: DC/Tfer to Acute Hospital 02 Condition: Fair Clinical Impression: NSTEMI (non-ST elevated myocardial infarction), Elevated troponin I level - Discharge Information *PRESCRIPTION DRUG MONITORING PROGRAM REVIEWED*: Not Applicable *COPY OF PRESCRIPTION DRUG MONITORING REPORT IN PATIENT KALEB: Not Applicable Forms: ED Department Discharge, Interfacility Transfer EMTALA Care Plan Goals: Discussed the examination, history, lab, EKG and treatments with Dr. Kam. Dr. Kam accepted the patient for continued evaluation and management. The patient will be transported by [facility]. - My Orders Last 24 Hours: My Active Orders 11/06/18 02:58 EKG Documentation Completion [RC] URGENT 11/06/18 04:17 Heparin Sodium/0.45% NaCl [Heparin 25,000 Units in 1/2 NS 500 ML] 25,000 units in 500 ml IV TITRATE - Assessment/Plan Last 24 Hours: My Active Orders 11/06/18 02:58 EKG Documentation Completion [RC] URGENT 11/06/18 04:17 Heparin Sodium/0.45% NaCl [Heparin 25,000 Units in 1/2 NS 500 ML] 25,000 units in 500 ml IV TITRATE
[2018-11-06 03:29] LABS: ANION GAP 16.5
[2018-11-06] MEDS ORDERED: Aspirin 81 MG Tab.Chew PO ONE (03:43)
[2018-11-06] MEDS ORDERED: Heparin Sodium 5,000 Units/ML Vial IVPUSH ONE (04:17)
[2018-11-06] MEDS ORDERED: Heparin Sodium/0.45% NaCl 25,000 UNITS/500 ML BAG IV SCH (04:17)
[2018-11-06] MEDS ORDERED: HYDROmorphone 1 MG/ML Syringe IVPUSH ONE (04:19)
[2018-11-06] MEDS ORDERED: Heparin Sodium/0.45% NaCl 500 ML ONE (04:23)
== END 2018-11-06 05:43 ==
LOC: DL.ED 02:07
DX: I21.4 Non-ST elevation (NSTEMI) myocardial infarction (principal); R79.89 Other specified abnormal findings of blood chemistry; I10 Essential (primary) hypertension; E11.9 Type 2 diabetes mellitus without complications; M19.90 Unspecified osteoarthritis, unspecified site; Z95.1 Presence of aortocoronary bypass graft; Z79.82 Long term (current) use of aspirin; Z79.899 Other long term (current) drug therapy; Z79.4 Long term (current) use of insulin
CPT/HCPCS: 36415; 80053; 82962; 84484; 85025; 93005; 96361; 96365; 96366; 96375; 96376; 99285; A9270; J1170; J1644; J2405; J7030; J7060

== ENCOUNTER 2018-11-11 16:30 | Outpatient (CLI) | payer MEDICAID ==
[~2018-11-11 16:30] MED LIST: Sodium Chloride 0.9% 10 ML Syringe FLUSH PRN
[2018-11-11] MEDS: Furosemide 40 MG/4 ML VIAL IVPUSH SCH (22:13)
--- NOTE | 2018-11-12 00:28 | PN ---
DATE: 11/11/2018 I received a call from the provider at the [facility] in [place]. The provider stated that Ms. Oneill was seen there today and had recurrent anemia with hemoglobin and hematocrit of 6.9 and 21.3. She had recently been at [facility] in [place] and was transfused there, and the source of her anemia is unclear. She was sent here today for a blood transfusion. A repeat Hgb and Hct were ordered prior to transfusing her and results were 7.4 and 23.2. Orders were written to type and cross for 2 units of packed red blood cells. She is O positive, antibody negative. She will receive IV push Lasix after each unit, given her history of coronary artery disease we want to avoid fluid overload. When transfusion is complete, she will be discharged to home to the care of her family. We encouraged her to follow up in clinic tomorrow for repeat hemoglobin and hematocrit. MODL /[id number] TIM
[2018-11-12 01:02] VITALS: BP 160/66; PULSE 90
[2018-11-12] MEDS: Furosemide 40 MG/4 ML VIAL IVPUSH SCH (01:19)
== END 2018-11-12 01:30 | disposition home or self-care (01) ==
LOC: DL.BLOODTR 16:30
PROVIDERS: ATTEND Internal Medicine
DX: D64.9 Anemia, unspecified (principal)
CPT/HCPCS: 36415; 36430; 85014; 85018; 86850; 86900; 86901; 86920; 86922; J1940; P9016

== ENCOUNTER 2018-11-19 20:26 | Emergency (ER) | payer MEDICAID ==
[2018-11-19 20:34] VITALS: BP 162/61
[2018-11-19] MEDS ORDERED: Acetaminophen 325 MG Tab PO ONE (20:44)
--- NOTE | 2018-11-19 20:44 | EDM.PDOC ---
ED HPI GENERAL MEDICAL PROBLEM - General Chief Complaint: Fever Stated Complaint: VERY COLD- LOW BLOOD? Time Seen by Provider: 11/19/18 20:42 Source of Information: Reports: Patient History Limitations: Reports: No Limitations - History of Present Illness INITIAL COMMENTS - FREE TEXT/NARRATIVE: onset F/C this after noon. denies CP/SB, some cough, no V/D. feels achy all over. Chest Pain Score (Numeric/FACES): 6 - Related Data Allergies Allergy/AdvReac Type Severity Reaction Status Date / Time No Known Allergies Allergy Verified 11/19/18 20:38 Home Meds: Home Meds Aspirin [Lo-Dose Aspirin EC] 81 mg PO DAILY 02/17/16 [History] glyBURIDE [Glyburide] 10 mg PO BID 02/17/16 [History] metFORMIN [Glucophage] 1,000 mg PO BID 02/17/16 [History] Gabapentin [Neurontin] 600 mg PO TID 11/12/16 [History] sitaGLIPtin Phos/Metformin HCl [Janumet 50-500 MG] 5 mg PO DAILY 11/12/16 [ History] Insulin Detemir [Levemir] 20 unit SQ DAILY 01/23/17 [History] Atropine Sulfate In 0.9% NaCl [Atropine 0.01%-Ns Eye Drops] 1 drop OP ASDIRECTED 09/25/18 [History] Brimonidine Tartrate 10 ml OP ASDIRECTED 09/25/18 [History] Cholecalciferol (Vitamin D3) [Vitamin D3] 1 tab PO DAILY 09/25/18 [History] Dorzolamide HCl/Timolol Maleat [Dorzolamide-Timolol Eye Drops] 1 drop EYEBOTH ASDIRECTED 09/25/18 [History] Multivitamin-Min/Iron/FA/Vit K [Multi-Day Plus Minerals Tablet] 1 tab PO DAILY 09/25/18 [History] Latanoprost/Pf [Latanoprost 0.005% Eye Drop] 1 drop EYERT BEDTIME 11/11/18 [ History] atorvaSTATin Calcium [Atorvastatin Calcium] 20 mg PO DAILY 11/11/18 [History] traMADol [Ultram] 50 mg PO Q6H PRN 11/11/18 [History] Past Medical History HEENT History: Reports: Impaired Vision 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 Cardiovascular History: Reports: High Cholesterol, Hypertension Respiratory History: Reports: Asthma Gastrointestinal History: Reports: None Genitourinary History: Reports: None 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 Musculoskeletal History: Reports: Arthritis, Back Pain, Chronic Neurological History: Reports: None Psychiatric History: Reports: None Endocrine/Metabolic History: Reports: Diabetes, Type II Hematologic History: Reports: None Immunologic History: Reports: None Oncologic (Cancer) History: Reports: None Dermatologic History: Reports: None - Infectious Disease History Infectious Disease History: Reports: Chicken Pox - Past Surgical History Head Surgeries/Procedures: Reports: None Cardiovascular Surgical History: Reports: Coronary Artery Bypass Other Musculoskeletal Surgeries/Procedures:: fractured back when younger Social & Family History - Family History Family Medical History: Noncontributory - Tobacco Use Smoking Status *Q: Never Smoker - Caffeine Use Caffeine Use: Reports: Coffee - Recreational Drug Use Recreational Drug Use: No ED ROS GENERAL - Review of Systems Review Of Systems: ROS reveals no pertinent complaints other than HPI. ED EXAM, GENERAL - Physical Exam Exam: See Below Exam Limited By: No Limitations General Appearance: Alert, WD/WN, Mild Distress, Other (general discomfort) Ears: Hearing Grossly Normal Throat/Mouth: Normal Voice, No Airway Compromise Head: Atraumatic Neck: Non-Tender, Full Range of Motion Respiratory/Chest: No Respiratory Distress, No Accessory Muscle Use, Rhonchi. No: Decreased Breath Sounds Cardiovascular: Regular Rate, Rhythm GI/Abdominal: Soft, Non-Tender Neurological: Alert, Oriented, Normal Cognition, No Motor/Sensory Deficits Psychiatric: Flat Affect Skin Exam: Warm, Dry, Normal Color Lymphatic: No Adenopathy Course - Vital Signs Last Recorded V/S: Last Vital Signs Temp 38.8 C H 11/19/18 20:33 Pulse 121 H 11/19/18 20:33 Resp 20 11/19/18 20:33 BP 162/61 H 11/19/18 20:33 Pulse Ox 100 11/19/18 20:33 - Orders/Labs/Meds Orders: Active Orders 24 hr Category Date Time Status Blood Glucose Check, Bedside [RC] ONETIME Care 11/19/18 20:46 Active Chest 1V Frontal [CR] Urgent Exams 11/19/18 20:51 Taken CULTURE BLOOD [BC] Stat Lab 11/19/18 20:44 Received Sodium Chloride 0.9% [Normal Saline] 1,000 ml Med 11/19/18 21:00 Active IV ASDIRECTED Medication Orders Sodium Chloride (Normal Saline) 1,000 mls @ 500 mls/hr IV ASDIRECTED GRACE Last Admin: 11/19/18 21:00 Dose: 500 mls/hr Labs: Laboratory Tests 11/19/18 11/19/18 11/19/18 Range/Units 20:44 20:44 20:44 WBC 12.0 H (5.0-10.0) 10^3/uL RBC 3.10 L (4.2-5.4) 10^6/uL Hgb 8.2 L (12.0-16.0) g/dL Hct 25.6 L (37.0-47.0) % MCV 82.6 (80-100) fL MCH 26.5 L (27.0-34.0) pg MCHC 32.0 L (33.0-35.0) g/dL Plt Count 408 D (150-450) 10^3/uL Neut % (Auto) 81.6 H (42.2-75.2) % Lymph % (Auto) 10.3 L (20.5-50.1) % [place] % (Auto) 6.6 (2-8) % Eos % (Auto) 1.4 (1.0-3.0) % Baso % (Auto) 0.1 (0.0-1.0) % Sodium 129 L (135-145) mmol/L Potassium 4.1 (3.6-5.0) mmol/L Chloride 97 L (101-111) mmol/L Carbon Dioxide 22.0 (21.0-31.0) mmol/L Anion Gap 14.1 BUN 18 (7-18) mg/dL Creatinine 1.2 (0.6-1.3) mg/dL Est Cr Clr Drug Dosing 34.47 mL/min Estimated GFR (MDRD) 45 BUN/Creatinine Ratio 15.00 Glucose 74 (74-105) mg/dL POC Glucose (70-105) mg/dl Lactic Acid 0.8 (0.5-2.2) mmol/L Calcium 8.1 L (8.4-10.2) mg/dl Total Bilirubin 0.6 (0.2-1.0) mg/dL AST 22 (10-42) IU/L ALT 17 (10-60) IU/L Alkaline Phosphatase 111 (42-121) IU/L Total Protein 8.0 (6.7-8.2) g/dl Albumin 3.2 (3.2-5.5) g/dl Globulin 4.8 Albumin/Globulin Ratio 0.67 11/19/18 Range/Units 20:44 WBC (5.0-10.0) 10^3/uL RBC (4.2-5.4) 10^6/uL Hgb (12.0-16.0) g/dL Hct (37.0-47.0) % MCV (80-100) fL MCH (27.0-34.0) pg MCHC (33.0-35.0) g/dL Plt Count (150-450) 10^3/uL Neut % (Auto) (42.2-75.2) % Lymph % (Auto) (20.5-50.1) % [place] % (Auto) (2-8) % Eos % (Auto) (1.0-3.0) % Baso % (Auto) (0.0-1.0) % Sodium (135-145) mmol/L Potassium (3.6-5.0) mmol/L Chloride (101-111) mmol/L Carbon Dioxide (21.0-31.0) mmol/L Anion Gap BUN (7-18) mg/dL Creatinine (0.6-1.3) mg/dL Est Cr Clr Drug Dosing mL/min Estimated GFR (MDRD) BUN/Creatinine Ratio Glucose (74-105) mg/dL POC Glucose 75 (70-105) mg/dl Lactic Acid (0.5-2.2) mmol/L Calcium (8.4-10.2) mg/dl Total Bilirubin (0.2-1.0) mg/dL AST (10-42) IU/L ALT (10-60) IU/L Alkaline Phosphatase (42-121) IU/L Total Protein (6.7-8.2) g/dl Albumin (3.2-5.5) g/dl Globulin Albumin/Globulin Ratio Meds: Medications Generic Name Dose Route Start Last Admin Trade Name Freq PRN Reason Stop Dose Admin Sodium Chloride 1,000 mls @ 500 mls/hr 11/19/18 21:00 11/19/18 21:00 Normal Saline IV 500 mls/hr ASDIRECTED GRACE Administration Discontinued Medications Generic Name Dose Route Start Last Admin Trade Name Cory PRN Reason Stop Dose Admin Acetaminophen 650 mg 11/19/18 20:44 11/19/18 21:00 Tylenol PO 11/19/18 20:45 650 mg NOW ONE Administration - Re-Assessments/Exams Free Text/Narrative Re-Assessment/Exam: 11/19/18 21:37 results discussed with pt & family Departure - Departure Time of Disposition: 21:38 Disposition: Home, Self-Care 01 Condition: Fair Clinical Impression: Flu syndrome - Discharge Information Instructions: Influenza, Adult, [id number] Forms: ED Department Discharge Additional Instructions: 1) rest 2) take tylenol or motrin for fever and chills and body aches 3) drink lots of liquids 4) follow up at clinic or recheck if there is any change or concerns. - My Orders Last 24 Hours: My Active Orders 11/19/18 20:44 CULTURE BLOOD [BC] Stat 11/19/18 20:46 Blood Glucose Check, Bedside [RC] ONETIME 11/19/18 20:51 Chest 1V Frontal [CR] Urgent 11/19/18 21:00 Sodium Chloride 0.9% [Normal Saline] 1,000 ml IV ASDIRECTED - Assessment/Plan Last 24 Hours: My Active Orders 11/19/18 20:44 CULTURE BLOOD [BC] Stat 11/19/18 20:46 Blood Glucose Check, Bedside [RC] ONETIME 11/19/18 20:51 Chest 1V Frontal [CR] Urgent 11/19/18 21:00 Sodium Chloride 0.9% [Normal Saline] 1,000 ml IV ASDIRECTED
[2018-11-19] MEDS ORDERED: Sodium Chloride 0.9% 1,000 ML IV SCH (21:00)
[2018-11-19 21:17] LABS: ANION GAP 14.1
== END 2018-11-19 22:12 | disposition home or self-care (01) ==
LOC: DL.ED 20:26
DX: J11.1 Influenza due to unidentified influenza virus with other respiratory manifestations (principal); E11.9 Type 2 diabetes mellitus without complications; E78.00 Pure hypercholesterolemia, unspecified; I10 Essential (primary) hypertension; J45.909 Unspecified asthma, uncomplicated; Z79.82 Long term (current) use of aspirin; Z79.4 Long term (current) use of insulin
CPT/HCPCS: 36415; 71045; 80053; 82962; 83605; 85025; 87040; 87804; 96365; 99283; A9270; J7030

== ENCOUNTER 2018-11-22 04:29 | Inpatient (IN) | payer MEDICAID ==
[2018-11-22] MEDS ORDERED: Sodium Chloride 0.9% 1,000 ML IV ONE (04:40)
[2018-11-22] MEDS ORDERED: Ketorolac 30 MG/ML SDV IVPUSH ONE (04:40)
--- NOTE | 2018-11-22 04:40 | EDM.PDOC ---
ED HPI GENERAL MEDICAL PROBLEM - General Chief Complaint: General Stated Complaint: AMBULANCE Time Seen by Provider: 11/22/18 04:38 Source of Information: Reports: Patient History Limitations: Reports: No Limitations - History of Present Illness INITIAL COMMENTS - FREE TEXT/NARRATIVE: was seen few days ago for same, Dx flu syndrome. still not better. Headache Pain Score (Numeric/FACES): 6 - Related Data Allergies Allergy/AdvReac Type Severity Reaction Status Date / Time No Known Allergies Allergy Verified 11/19/18 20:38 Home Meds: Home Meds Aspirin [Lo-Dose Aspirin EC] 81 mg PO DAILY 02/17/16 [History] glyBURIDE [Glyburide] 10 mg PO BID 02/17/16 [History] metFORMIN [Glucophage] 1,000 mg PO BID 02/17/16 [History] Gabapentin [Neurontin] 600 mg PO TID 11/12/16 [History] sitaGLIPtin Phos/Metformin HCl [Janumet 50-500 MG] 5 mg PO DAILY 11/12/16 [ History] Insulin Detemir [Levemir] 20 unit SQ DAILY 01/23/17 [History] Atropine Sulfate In 0.9% NaCl [Atropine 0.01%-Ns Eye Drops] 1 drop OP ASDIRECTED 09/25/18 [History] Brimonidine Tartrate 10 ml OP ASDIRECTED 09/25/18 [History] Cholecalciferol (Vitamin D3) [Vitamin D3] 1 tab PO DAILY 09/25/18 [History] Dorzolamide HCl/Timolol Maleat [Dorzolamide-Timolol Eye Drops] 1 drop EYEBOTH ASDIRECTED 09/25/18 [History] Multivitamin-Min/Iron/FA/Vit K [Multi-Day Plus Minerals Tablet] 1 tab PO DAILY 09/25/18 [History] Latanoprost/Pf [Latanoprost 0.005% Eye Drop] 1 drop EYERT BEDTIME 11/11/18 [ History] atorvaSTATin Calcium [Atorvastatin Calcium] 20 mg PO DAILY 11/11/18 [History] traMADol [Ultram] 50 mg PO Q6H PRN 11/11/18 [History] Past Medical History HEENT History: Reports: Impaired Vision 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 Cardiovascular History: Reports: High Cholesterol, Hypertension Respiratory History: Reports: Asthma Gastrointestinal History: Reports: None Genitourinary History: Reports: None 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: Musculoskeletal History: Reports: Arthritis, Back Pain, Chronic Neurological History: Reports: None Psychiatric History: Reports: None Endocrine/Metabolic History: Reports: Diabetes, Type II Hematologic History: Reports: None Immunologic History: Reports: None Oncologic (Cancer) History: Reports: None Dermatologic History: Reports: None - Infectious Disease History Infectious Disease History: Reports: Chicken Pox - Past Surgical History Head Surgeries/Procedures: Reports: None Cardiovascular Surgical History: Reports: Coronary Artery Bypass Other Musculoskeletal Surgeries/Procedures:: fractured back when younger Social & Family History - Family History Family Medical History: Noncontributory - Caffeine Use Caffeine Use: Reports: Coffee ED ROS GENERAL - Review of Systems Review Of Systems: ROS reveals no pertinent complaints other than HPI. ED EXAM, GENERAL - Physical Exam Exam: See Below Exam Limited By: No Limitations General Appearance: Alert, WD/WN, Mild Distress, Other (general discomfort) Ears: Hearing Grossly Normal Throat/Mouth: Normal Voice, No Airway Compromise Head: Atraumatic Neck: Non-Tender, Full Range of Motion Respiratory/Chest: No Respiratory Distress Cardiovascular: Regular Rate, Rhythm GI/Abdominal: Soft, Non-Tender Neurological: Alert, Oriented, Normal Cognition, Normal Gait, No Motor/Sensory Deficits Psychiatric: Other (upset) Skin Exam: Warm, Dry, Normal Color Lymphatic: No Adenopathy Course - Vital Signs Last Recorded V/S: Last Vital Signs Temp 39.2 C H 11/22/18 05:06 Pulse 105 H 11/22/18 05:06 Resp 22 H 11/22/18 05:06 BP 145/44 H 11/22/18 05:06 Pulse Ox 100 11/22/18 05:06 - Orders/Labs/Meds Orders: Active Orders 24 hr Category Date Time Status EKG 12 Lead [EKG Documentation Completion] [RC] STAT Care 11/22/18 04:55 Active CULTURE BLOOD [BC] Stat Lab 11/22/18 04:39 Received CULTURE URINE [RM] Stat Lab 11/22/18 04:35 Received TYPE AND SCREEN [BBK] Stat Lab 11/22/18 05:14 Ordered Sodium Chloride 0.9% [Normal Saline] 1,000 ml Med 11/22/18 04:40 Active IV .BOLUS cefTRIAXone [Rocephin] 1 gm Med 11/22/18 05:46 Active Sodium Chloride 0.9% [Normal Saline] 50 ml IV ONETIME Transfuse RBC [Transfuse Red Blood Cells] [COMM] Stat Oth 11/22/18 05:15 Ordered Transfuse Red Blood Cells [COMM] Urgent Oth 11/22/18 05:21 Ordered Medication Orders Sodium Chloride (Normal Saline) 1,000 mls @ 500 mls/hr IV .BOLUS ONE Stop: 11/22/18 06:39 Last Admin: 11/22/18 04:48 Dose: 500 mls/hr Ceftriaxone Sodium 1 gm/ (Sodium Chloride) 50 mls @ 50 mls/hr IV ONETIME ONE Stop: 11/22/18 06:45 Labs: Laboratory Tests 11/22/18 11/22/18 11/22/18 Range/Units 04:35 04:39 04:39 WBC 13.3 H (5.0-10.0) 10^3/uL RBC 2.70 L (4.2-5.4) 10^6/uL Hgb 7.0 L (12.0-16.0) g/dL Hct 22.4 L (37.0-47.0) % MCV 83.0 (80-100) fL MCH 25.9 L (27.0-34.0) pg MCHC 31.3 L (33.0-35.0) g/dL Plt Count 398 (150-450) 10^3/uL Neut % (Auto) 84.7 H (42.2-75.2) % Lymph % (Auto) 7.6 L (20.5-50.1) % [place] % (Auto) 6.4 (2-8) % Eos % (Auto) 1.1 (1.0-3.0) % Baso % (Auto) 0.2 (0.0-1.0) % Sodium 131 L (135-145) mmol/L Potassium 4.7 (3.6-5.0) mmol/L Chloride 103 (101-111) mmol/L Carbon Dioxide 19.0 L (21.0-31.0) mmol/L Anion Gap 13.7 BUN 15 (7-18) mg/dL Creatinine 1.2 (0.6-1.3) mg/dL Est Cr Clr Drug Dosing 34.47 mL/min Estimated GFR (MDRD) 45 BUN/Creatinine Ratio 12.50 Glucose 233 H (74-105) mg/dL Lactic Acid (0.5-2.2) mmol/L Calcium 7.8 L (8.4-10.2) mg/dl Total Bilirubin 0.3 (0.2-1.0) mg/dL AST 20 (10-42) IU/L ALT 17 (10-60) IU/L Alkaline Phosphatase 93 (42-121) IU/L Troponin I (0.00-0.02) ng/ml Total Protein 6.9 (6.7-8.2) g/dl Albumin 2.7 L (3.2-5.5) g/dl Globulin 4.2 Albumin/Globulin Ratio 0.64 Urine Color Yellow (YELLOW) Urine Appearance Cloudy (CLEAR) Urine pH 7.0 (5.0-9.0) Ur Specific [place] 1.010 (1.005-1.030) Urine Protein 30 H (NEGATIVE) Urine Glucose (UA) Negative (NEGATIVE) Urine Ketones Negative (NEGATIVE) Urine Occult Blood Moderate H (NEGATIVE) Urine Nitrite Positive H (NEGATIVE) Urine Bilirubin Negative (NEGATIVE) Urine Urobilinogen 0.2 (0.2-1.0) mg/dL Ur Leukocyte Esterase Moderate H (NEGATIVE) Urine RBC 5-10 H /HPF Urine WBC >100 H (0-5/HPF) /HPF Ur Epithelial Cells Occasional (NOT SEEN) /HPF Urine Bacteria Many H (0-FEW/HPF) /HPF 11/22/18 11/22/18 Range/Units 04:39 04:39 WBC (5.0-10.0) 10^3/uL RBC (4.2-5.4) 10^6/uL Hgb (12.0-16.0) g/dL Hct (37.0-47.0) % MCV (80-100) fL MCH (27.0-34.0) pg MCHC (33.0-35.0) g/dL Plt Count (150-450) 10^3/uL Neut % (Auto) (42.2-75.2) % Lymph % (Auto) (20.5-50.1) % [place] % (Auto) (2-8) % Eos % (Auto) (1.0-3.0) % Baso % (Auto) (0.0-1.0) % Sodium (135-145) mmol/L Potassium (3.6-5.0) mmol/L Chloride (101-111) mmol/L Carbon Dioxide (21.0-31.0) mmol/L Anion Gap BUN (7-18) mg/dL Creatinine (0.6-1.3) mg/dL Est Cr Clr Drug Dosing mL/min Estimated GFR (MDRD) BUN/Creatinine Ratio Glucose (74-105) mg/dL Lactic Acid 1.6 (0.5-2.2) mmol/L Calcium (8.4-10.2) mg/dl Total Bilirubin (0.2-1.0) mg/dL AST (10-42) IU/L ALT (10-60) IU/L Alkaline Phosphatase (42-121) IU/L Troponin I < 0.02 (0.00-0.02) ng/ml Total Protein (6.7-8.2) g/dl Albumin (3.2-5.5) g/dl Globulin Albumin/Globulin Ratio Urine Color (YELLOW) Urine Appearance (CLEAR) Urine pH (5.0-9.0) Ur Specific [place] (1.005-1.030) Urine Protein (NEGATIVE) Urine Glucose (UA) (NEGATIVE) Urine Ketones (NEGATIVE) Urine Occult Blood (NEGATIVE) Urine Nitrite (NEGATIVE) Urine Bilirubin (NEGATIVE) Urine Urobilinogen (0.2-1.0) mg/dL Ur Leukocyte Esterase (NEGATIVE) Urine RBC /HPF Urine WBC (0-5/HPF) /HPF Ur Epithelial Cells (NOT SEEN) /HPF Urine Bacteria (0-FEW/HPF) /HPF Meds: Medications Generic Name Dose Route Start Last Admin Trade Name Freq PRN Reason Stop Dose Admin Sodium Chloride 1,000 mls @ 500 mls/hr 11/22/18 04:40 11/22/18 04:48 Normal Saline IV 11/22/18 06:39 500 mls/hr .BOLUS ONE Administration Ceftriaxone Sodium 1 gm/ 50 mls @ 50 mls/hr 11/22/18 05:46 Sodium Chloride IV 11/22/18 06:45 ONETIME ONE Discontinued Medications Generic Name Dose Route Start Last Admin Trade Name Freq PRN Reason Stop Dose Admin Acetaminophen 650 mg 11/22/18 05:04 11/22/18 05:11 Tylenol PO 11/22/18 05:05 650 mg NOW ONE Administration Ketorolac Tromethamine 15 mg 11/22/18 04:40 11/22/18 04:46 Toradol IVPUSH 11/22/18 04:41 15 mg ONETIME ONE Administration - Re-Assessments/Exams Free Text/Narrative Re-Assessment/Exam: 11/22/18 05:[address] Chapa who kindly admitted pt. Departure - Departure Time of Disposition: 05:49 Disposition: Admitted As Inpatient 66 Condition: Fair Clinical Impression: UTI (urinary tract infection) Qualifiers: Urinary tract infection type: site unspecified Hematuria presence: without hematuria Qualified Code(s): N39.0 - Urinary tract infection, site not specified Anemia Qualifiers: Anemia type: unspecified type Qualified Code(s): D64.9 - Anemia, unspecified - Discharge Information Forms: ED Department Discharge - My Orders Last 24 Hours: My Active Orders 11/22/18 04:35 CULTURE URINE [RM] Stat 11/22/18 04:39 CULTURE BLOOD [BC] Stat 11/22/18 04:40 Sodium Chloride 0.9% [Normal Saline] 1,000 ml IV .BOLUS 11/22/18 04:55 EKG 12 Lead [EKG Documentation Completion] [RC] STAT 11/22/18 05:14 TYPE AND SCREEN [BBK] Stat 11/22/18 05:15 Transfuse RBC [Transfuse Red Blood Cells] [COMM] Stat 11/22/18 05:21 Transfuse Red Blood Cells [COMM] Urgent 11/22/18 05:46 cefTRIAXone [Rocephin] 1 gm Sodium Chloride 0.9% [Normal Saline] 50 ml IV ONETIME - Assessment/Plan Last 24 Hours: My Active Orders 11/22/18 04:35 CULTURE URINE [RM] Stat 11/22/18 04:39 CULTURE BLOOD [BC] Stat 11/22/18 04:40 Sodium Chloride 0.9% [Normal Saline] 1,000 ml IV .BOLUS 11/22/18 04:55 EKG 12 Lead [EKG Documentation Completion] [RC] STAT 11/22/18 05:14 TYPE AND SCREEN [BBK] Stat 11/22/18 05:15 Transfuse RBC [Transfuse Red Blood Cells] [COMM] Stat 11/22/18 05:21 Transfuse Red Blood Cells [COMM] Urgent 11/22/18 05:46 cefTRIAXone [Rocephin] 1 gm Sodium Chloride 0.9% [Normal Saline] 50 ml IV ONETIME
[2018-11-22] MEDS ORDERED: Acetaminophen 325 MG Tab PO ONE (05:04)
[2018-11-22 05:12] LABS: ANION GAP 13.7
[2018-11-22] MEDS ORDERED: cefTRIAXone 1 GM in Sodium Chloride 0.9% 50 ML IV ONE (05:46)
[2018-11-22] MEDS ORDERED: Ondansetron 4 MG Tab.DIS PO PRN (08:31)
[2018-11-22] MEDS ORDERED: Docusate Sodium 100 MG Cap PO PRN (08:31)
[2018-11-22] MEDS ORDERED: Zolpidem 5 MG Tab PO PRN (08:31)
[2018-11-22] MEDS: Insulin Glarg,Human.Rec.Analog 100 UNIT/ML ML SUBCUT SCH (09:56)
[2018-11-22] MEDS: Insulin Lispro 100 Units/ML 3 ML Vial SUBCUT SCH ×6 (09:58→21:05)
[2018-11-22] MEDS: Aspirin 81 MG Tab.EC PO SCH (10:34)
[2018-11-22] MEDS: atorvaSTATin 20 MG Tab PO SCH (10:34)
[2018-11-22] MEDS: glyBURIDE 5 MG Tab PO SCH ×2 (10:34→18:06)
[2018-11-22] MEDS: Multivitamins, Therapeutic with Minerals Tab PO SCH (10:34)
[2018-11-22] MEDS: Lisinopril 10 MG Tab PO SCH (10:35)
[2018-11-22] MEDS: traMADol 50 MG Tab PO PRN ×2 (10:35→19:59)
[2018-11-22] MEDS: Gabapentin 300 MG Cap PO SCH ×3 (10:35→21:50)
--- NOTE | 2018-11-22 10:42 | PCM.HP ---
H&P History of Present Illness - General Date of Service: 11/22/18 Admit Problem/Dx: Admission Diagnosis/Problem Admission Diagnosis/Problem UTI, Urinary tract infectious disease Source of Information: Patient - History of Present Illness Initial Comments - Free Text/Narative: 63-year-old lady with history of diabetes, coronary artery disease status post bypass surgery in September 2018, history of anemia, secondary to blood loss secondary to gastric ulcer. The patient presented the 3 days prior to this admission to the emergency room with complains of fever. No focal sign of infection was noted, she was discharged with a presumed viral infection On the day of admission the patient presented with continued weakness, chills associated with subjective fever. Had no cough, no shortness of breath. No abdominal pain. The day before admission the patient had a few loose bowel movements and took Pepto-Bismol. Prior to that she did not notice black or bloody bowel movements. The diarrhea resolved. She has mild urine burning on urination. Headache Pain Score (Numeric/FACES): 4 - Related Data Allergies/Adverse Reactions: Allergies Allergy/AdvReac Type Severity Reaction Status Date / Time No Known Allergies Allergy Verified 11/22/18 06:07 Home Medications: Home Meds Aspirin [Lo-Dose Aspirin EC] 81 mg PO DAILY 02/17/16 [History] glyBURIDE [Glyburide] 10 mg PO BID 02/17/16 [History] metFORMIN [Glucophage] 1,000 mg PO BID 02/17/16 [History] Gabapentin [Neurontin] 600 mg PO TID 11/12/16 [History] Insulin Detemir [Levemir] 15 unit SQ QAM 01/23/17 [History] Atropine Sulfate In 0.9% NaCl [Atropine 0.01%-Ns Eye Drops] 1 drop EYERT BID [History] Brimonidine Tartrate 1 drop EYERT BID 09/25/18 [History] Cholecalciferol (Vitamin D3) [Vitamin D3] 1,000 units PO DAILY 09/25/18 [History ] Dorzolamide HCl/Timolol Maleat [Dorzolamide-Timolol Eye Drops] 1 drop EYERT BEDTIME 09/25/18 [History] Multivitamin-Min/Iron/FA/Vit K [Multi-Day Plus Minerals Tablet] 1 tab PO DAILY 09/25/18 [History] Latanoprost/Pf [Latanoprost 0.005% Eye Drop] 1 drop EYERT BEDTIME 11/11/18 [ History] atorvaSTATin Calcium [Atorvastatin Calcium] 20 mg PO DAILY 11/11/18 [History] traMADol [Ultram] 50 mg PO Q6H PRN 11/11/18 [History] Albuterol [Proventil Neb Soln] 1 ampule NEB Q4HR PRN 11/22/18 [History] Dextrose [Glucose] 4 gm PO DAILY PRN 11/22/18 [History] Ferrous Sulfate 325 mg PO DAILY 11/22/18 [History] Insulin Aspart [NovoLOG] 5 unit SUBCUT TIDMEALS 11/22/18 [History] Lidocaine 1 patch TOP DAILY PRN 11/22/18 [History] Lisinopril 10 mg PO DAILY 11/22/18 [History] Ondansetron [Ondansetron Odt] 4 mg PO Q4HR PRN 11/22/18 [History] Potassium Chloride 20 meq PO BID 11/22/18 [History] Saxagliptin HCl [Onglyza] 5 mg PO DAILY 11/22/18 [History] oxyCODONE HCl/Acetaminophen [Oxycodone-Acetaminophen 5-325] 1 each PO BID PRN [History] Past Medical History HEENT History: Reports: Impaired Vision 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 Cardiovascular History: Reports: High Cholesterol, Hypertension, Other (See Below) Other Cardiovascular History: NSTEMI Respiratory History: Reports: Asthma Gastrointestinal History: Reports: None Genitourinary History: Reports: None [employer] History: Reports: Musculoskeletal History: Reports: Arthritis, Back Pain, Chronic Neurological History: Reports: None Psychiatric History: Reports: None Endocrine/Metabolic History: Reports: Diabetes, Type II Hematologic History: Reports: None Immunologic History: Reports: None Oncologic (Cancer) History: Reports: None Dermatologic History: Reports: None - Infectious Disease History Infectious Disease History: Reports: Chicken Pox - Past Surgical History Head Surgeries/Procedures: Reports: None HEENT Surgical History: Reports: Adenoidectomy, Tonsillectomy Cardiovascular Surgical History: Reports: Coronary Artery Bypass, Other (See Below) Other Cardiovascular Surgeries/Procedures: "Open heart surgery October 20, 2018" Respiratory Surgical History: Reports: None GI Surgical History: Reports: Appendectomy, Cholecystectomy Female Surgical History: Reports: None Endocrine Surgical History: Reports: None Other Musculoskeletal Surgeries/Procedures:: fractured back when younger Social & Family History - Family History Family Medical History: Noncontributory - Tobacco Use Smoking Status *Q: Former Smoker Used Tobacco, but Quit: Yes Month/Year Tobacco Last Used: 08/17 Second Hand Smoke Exposure: No - Caffeine Use Caffeine Use: Reports: Coffee - Recreational Drug Use Recreational Drug Use: No H&P Review of Systems - Review of Systems: Review Of Systems: See Below General: Reports: Fever (Subjective), Chills, Weakness Pulmonary: Denies: Shortness of Breath, Cough Cardiovascular: Denies: Chest Pain, Edema Gastrointestinal: Reports: Black Stool (After taking Pepto-Bismol), Diarrhea. Denies: Abdominal Pain, Bloody Stool Genitourinary: Reports: Dysuria, Frequency Exam - Exam Exam: See Below - Vital Signs Vital Signs: Last Vital Signs Temp 36.4 C 11/22/18 10:06 Pulse 78 11/22/18 10:06 Resp 16 11/22/18 10:06 BP 130/52 L 11/22/18 10:35 Pulse Ox 100 11/22/18 10:06 Weight: 58.967 kg - Exam General: Alert, Oriented Neck: Supple Lungs: Clear to Auscultation, Normal Respiratory Effort Cardiovascular: Regular Rate, Regular Rhythm GI/Abdominal Exam: Normal Bowel Sounds, Soft, Non-Tender, No Distention Skin: Warm, Dry, Intact - Patient Data Lab Results Last 24 hrs: Laboratory Results - last 24 hr 11/22/18 11/22/18 11/22/18 Range/Units 04:35 04:39 04:39 WBC 13.3 H (5.0-10.0) 10^3/uL RBC 2.70 L (4.2-5.4) 10^6/uL Hgb 7.0 L (12.0-16.0) g/dL Hct 22.4 L (37.0-47.0) % MCV 83.0 (80-100) fL MCH 25.9 L (27.0-34.0) pg MCHC 31.3 L (33.0-35.0) g/dL Plt Count 398 (150-450) 10^3/uL Neut % (Auto) 84.7 H (42.2-75.2) % Lymph % (Auto) 7.6 L (20.5-50.1) % Hood % (Auto) 6.4 (2-8) % Eos % (Auto) 1.1 (1.0-3.0) % Baso % (Auto) 0.2 (0.0-1.0) % Sodium 131 L (135-145) mmol/L Potassium 4.7 (3.6-5.0) mmol/L Chloride 103 (101-111) mmol/L Carbon Dioxide 19.0 L (21.0-31.0) mmol/L Anion Gap 13.7 BUN 15 (7-18) mg/dL Creatinine 1.2 (0.6-1.3) mg/dL Est Cr Clr Drug Dosing 34.47 mL/min Estimated GFR (MDRD) 45 BUN/Creatinine Ratio 12.50 Glucose 233 H (74-105) mg/dL POC Glucose (70-105) mg/dl Lactic Acid (0.5-2.2) mmol/L Calcium 7.8 L (8.4-10.2) mg/dl Total Bilirubin 0.3 (0.2-1.0) mg/dL AST 20 (10-42) IU/L ALT 17 (10-60) IU/L Alkaline Phosphatase 93 (42-121) IU/L Troponin I (0.00-0.02) ng/ml Total Protein 6.9 (6.7-8.2) g/dl Albumin 2.7 L (3.2-5.5) g/dl Globulin 4.2 Albumin/Globulin Ratio 0.64 Urine Color Yellow (YELLOW) Urine Appearance Cloudy (CLEAR) Urine pH 7.0 (5.0-9.0) Ur Specific [place] 1.010 (1.005-1.030) Urine Protein 30 H (NEGATIVE) Urine Glucose (UA) Negative (NEGATIVE) Urine Ketones Negative (NEGATIVE) Urine Occult Blood Moderate H (NEGATIVE) Urine Nitrite Positive H (NEGATIVE) Urine Bilirubin Negative (NEGATIVE) Urine Urobilinogen 0.2 (0.2-1.0) mg/dL Ur Leukocyte Esterase Moderate H (NEGATIVE) Urine RBC 5-10 H /HPF Urine WBC >100 H (0-5/HPF) /HPF Ur Epithelial Cells Occasional (NOT SEEN) /HPF Urine Bacteria Many H (0-FEW/HPF) /HPF Blood Type Gel Antibody Screen Crossmatch 11/22/18 11/22/18 11/22/18 Range/Units 04:39 04:39 04:39 WBC (5.0-10.0) 10^3/uL RBC (4.2-5.4) 10^6/uL Hgb (12.0-16.0) g/dL Hct (37.0-47.0) % MCV (80-100) fL MCH (27.0-34.0) pg MCHC (33.0-35.0) g/dL Plt Count (150-450) 10^3/uL Neut % (Auto) (42.2-75.2) % Lymph % (Auto) (20.5-50.1) % Hood % (Auto) (2-8) % Eos % (Auto) (1.0-3.0) % Baso % (Auto) (0.0-1.0) % Sodium (135-145) mmol/L Potassium (3.6-5.0) mmol/L Chloride (101-111) mmol/L Carbon Dioxide (21.0-31.0) mmol/L Anion Gap BUN (7-18) mg/dL Creatinine (0.6-1.3) mg/dL Est Cr Clr Drug Dosing mL/min Estimated GFR (MDRD) BUN/Creatinine Ratio Glucose (74-105) mg/dL POC Glucose (70-105) mg/dl Lactic Acid 1.6 (0.5-2.2) mmol/L Calcium (8.4-10.2) mg/dl Total Bilirubin (0.2-1.0) mg/dL AST (10-42) IU/L ALT (10-60) IU/L Alkaline Phosphatase (42-121) IU/L Troponin I < 0.02 (0.00-0.02) ng/ml Total Protein (6.7-8.2) g/dl Albumin (3.2-5.5) g/dl Globulin Albumin/Globulin Ratio Urine Color (YELLOW) Urine Appearance (CLEAR) Urine pH (5.0-9.0) Ur Specific [place] (1.005-1.030) Urine Protein (NEGATIVE) Urine Glucose (UA) (NEGATIVE) Urine Ketones (NEGATIVE) Urine Occult Blood (NEGATIVE) Urine Nitrite (NEGATIVE) Urine Bilirubin (NEGATIVE) Urine Urobilinogen (0.2-1.0) mg/dL Ur Leukocyte Esterase (NEGATIVE) Urine RBC /HPF Urine WBC (0-5/HPF) /HPF Ur Epithelial Cells (NOT SEEN) /HPF Urine Bacteria (0-FEW/HPF) /HPF Blood Type O POSITIVE Gel Antibody Screen Negative Crossmatch See Detail 11/22/18 Range/Units 08:00 WBC (5.0-10.0) 10^3/uL RBC (4.2-5.4) 10^6/uL Hgb (12.0-16.0) g/dL Hct (37.0-47.0) % MCV (80-100) fL MCH (27.0-34.0) pg MCHC (33.0-35.0) g/dL Plt Count (150-450) 10^3/uL Neut % (Auto) (42.2-75.2) % Lymph % (Auto) (20.5-50.1) % Hood % (Auto) (2-8) % Eos % (Auto) (1.0-3.0) % Baso % (Auto) (0.0-1.0) % Sodium (135-145) mmol/L Potassium (3.6-5.0) mmol/L Chloride (101-111) mmol/L Carbon Dioxide (21.0-31.0) mmol/L Anion Gap BUN (7-18) mg/dL Creatinine (0.6-1.3) mg/dL Est Cr Clr Drug Dosing mL/min Estimated GFR (MDRD) BUN/Creatinine Ratio Glucose (74-105) mg/dL POC Glucose 260 H (70-105) mg/dl Lactic Acid (0.5-2.2) mmol/L Calcium (8.4-10.2) mg/dl Total Bilirubin (0.2-1.0) mg/dL AST (10-42) IU/L ALT (10-60) IU/L Alkaline Phosphatase (42-121) IU/L Troponin I (0.00-0.02) ng/ml Total Protein (6.7-8.2) g/dl Albumin (3.2-5.5) g/dl Globulin Albumin/Globulin Ratio Urine Color (YELLOW) Urine Appearance (CLEAR) Urine pH (5.0-9.0) Ur Specific [place] (1.005-1.030) Urine Protein (NEGATIVE) Urine Glucose (UA) (NEGATIVE) Urine Ketones (NEGATIVE) Urine Occult Blood (NEGATIVE) Urine Nitrite (NEGATIVE) Urine Bilirubin (NEGATIVE) Urine Urobilinogen (0.2-1.0) mg/dL Ur Leukocyte Esterase (NEGATIVE) Urine RBC /HPF Urine WBC (0-5/HPF) /HPF Ur Epithelial Cells (NOT SEEN) /HPF Urine Bacteria (0-FEW/HPF) /HPF Blood Type Gel Antibody Screen Crossmatch Result Diagrams: 11/22/18 04:39 11/22/18 04:39 Julio Results Last 24 hrs: Microbiology 11/22/18 04:36 Influenza Type A Antigen Screen - Final Nasal, Right NEGATIVE INFLUENZA A VIRUS AG REFERENCE RANGE: NEGATIVE Influenza Type B Antigen Screen - Final NEGATIVE INFLUENZA B VIRUS AG REFERENCE RANGE: NEGATIVE 11/22/18 05:07 Stool Occult Blood (JULIO) - Final Stool / Feces NEGATIVE OCCULT BLOOD REFERENCE RANGE: NEGATIVE - Problem List (1) CAD (coronary artery disease) SNOMED Code(s): 88906651 ICD Code: I25.10 - ATHSCL HEART DISEASE OF [place] CORONARY ARTERY W/O ANG PCTRS Status: Acute Current Visit: Yes (2) Diabetes SNOMED Code(s): 57483335 ICD Code: E11.9 - TYPE 2 DIABETES MELLITUS WITHOUT COMPLICATIONS Status: Acute Current Visit: Yes (3) Anemia SNOMED Code(s): 621102093 ICD Code: D64.9 - ANEMIA, UNSPECIFIED Status: Acute Current Visit: No Qualifiers: Anemia type: unspecified type Qualified Code(s): D64.9 - Anemia, unspecified (4) UTI (urinary tract infection) SNOMED Code(s): 83123836 ICD Code: N39.0 - URINARY TRACT INFECTION, SITE NOT SPECIFIED Status: Acute Current Visit: No Qualifiers: Urinary tract infection type: site unspecified Hematuria presence: without hematuria Qualified Code(s): N39.0 - Urinary tract infection, site not specified Problem List Initiated/Reviewed/Updated: Yes Orders Last 24hrs: Active Orders 24 hr Category Date Time Status Patient Status [ADT] Routine ADT 11/22/18 08:31 Active Antiembolic Devices [RC] PER UNIT ROUTINE Care 11/22/18 08:32 Active Blood Glucose Check, Bedside [RC] QIDACANDBED Care 11/22/18 08:31 Active Oxygen Therapy [RC] PRN Care 11/22/18 08:31 Active Up With Assistance [RC] ASDIRECTED Care 11/22/18 08:31 Active VTE/DVT Education [RC] PER UNIT ROUTINE Care 11/22/18 08:31 Active Vital Signs [RC] Q4H Care 11/22/18 08:31 Active Consistent Carbohydrate Diet [DIET] Diet 11/22/18 Lunch Active BASIC METABOLIC PANEL,BMP [CHEM] AM Lab 11/23/18 05:11 Ordered CBC WITH AUTO DIFF [HEME] AM Lab 11/23/18 05:11 Ordered CULTURE BLOOD [BC] Stat Lab 11/22/18 04:39 Received CULTURE URINE [RM] Stat Lab 11/22/18 04:35 Received RED BLOOD CELLS LP [BBK] Stat Lab 11/22/18 04:39 Results TYPE AND SCREEN [BBK] Stat Lab 11/22/18 04:39 Results Acetaminophen [Tylenol] Med 11/22/18 08:31 Active 650 mg PO Q4H PRN Aspirin [Halfprin] Med 11/22/18 09:00 Active 81 mg PO DAILY Atropine Sulfate In 0.9% NaCl [Atropine 0.01%-Ns Eye Med 11/22/18 09:00 Pending Drops] 1 drop EYERT BID Brimonidine [Alphagan P 0.15% Ophth Soln] Med 11/22/18 09:00 Active 0 ml EYERT BID Cholecalciferol (Vitamin D3) [Vitamin D3] Med 11/22/18 09:00 Active 1,000 units PO DAILY Docusate Sodium [Colace] Med 11/22/18 08:31 Active 100 mg PO BID PRN Dorzolamide/Timolol [Cosopt 2%-0.5% Ophth Soln] Med 11/22/18 21:00 Active 0 ml EYERT BEDTIME Gabapentin [Neurontin] Med 11/22/18 09:00 Active 600 mg PO TID Heparin Sodium Med 11/22/18 14:00 Active 5,000 units SUBCUT Q8HR Insulin Glarg,Human.Rec.Analog [LantUS] Med 11/22/18 09:00 Active 15 unit SUBCUT QAM Insulin Lispro [HumaLOG] Med 11/22/18 10:00 Active See Protocol SUBCUT ACBED Iron Polysaccharides Complex [Ferrex 150] Med 11/22/18 10:15 Active 150 mg PO DAILY Latanoprost [Xalatan 0.005% Ophth Soln] Med 11/22/18 21:00 Active 0 ml EYERT BEDTIME Lisinopril [Prinivil] Med 11/22/18 09:00 Active 10 mg PO DAILY Multivitamins/Minerals [Vitamins and Minerals] Med 11/22/18 09:00 Active 1 tab PO DAILY Ondansetron [Zofran ODT] Med 11/22/18 08:31 Active 4 mg PO Q6H PRN Pantoprazole [ProTONIX] Med 11/22/18 10:00 Active 40 mg PO BIDAC Potassium Chloride [Klor-Con 10] Med 11/22/18 09:00 Active 20 meq PO BIDMEALS Zolpidem [Ambien] Med 11/22/18 08:31 Active 5 mg PO BEDTIME PRN atorvaSTATin [Lipitor] Med 11/22/18 09:00 Active 20 mg PO DAILY glyBURIDE [Micronase] Med 11/22/18 09:00 Active 10 mg PO BIDMEALS traMADol [Ultram] Med 11/22/18 08:29 Active 50 mg PO Q6H PRN Antiembolic Hose [OM.PC] Per Unit Routine Ot 11/22/18 08:31 Ordered Transfuse RBC [Transfuse Red Blood Cells] [COMM] Stat Ot 11/22/18 05:15 Ordered Transfuse Red Blood Cells [COMM] Urgent Ot 11/22/18 05:21 Ordered Resuscitation Status Routine Resus Stat 11/22/18 08:31 Ordered Medication Orders Acetaminophen (Tylenol) 650 mg PO Q4H PRN PRN Reason: Pain (Mild 1-3)/fever Aspirin (Halfprin) 81 mg PO DAILY [facility] Last Admin: 11/22/18 10:34 Dose: 81 mg Atorvastatin Calcium (Lipitor) 20 mg PO DAILY [facility] Last Admin: 11/22/18 10:34 Dose: 20 mg Brimonidine Tartrate (Alphagan P 0.15% Ophth Soln) 0 ml EYERT BID [facility] Cholecalciferol (Vitamin D3) 1,000 units PO DAILY [facility] Docusate Sodium (Colace) 100 mg PO BID PRN PRN Reason: Constipation Dorzolamide/Timolol (Cosopt 2%-0.5% Ophth Soln) 0 ml EYERT BEDTIME [facility] Gabapentin (Neurontin) 600 mg PO TID [facility] Last Admin: 11/22/18 10:35 Dose: 600 mg Glyburide (Micronase) 10 mg PO BIDMEALS [facility] Last Admin: 11/22/18 10:34 Dose: 10 mg Heparin Sodium (Porcine) (Heparin Sodium) 5,000 units SUBCUT Q8HR [facility] Insulin Glargine (Lantus) 15 unit SUBCUT QAM [facility] Last Admin: 11/22/18 09:56 Dose: 15 unit Insulin Human Lispro (Humalog) 0 unit SUBCUT ACBED [facility]; Protocol Last Admin: 11/22/18 09:58 Dose: 3 unit Latanoprost (Xalatan 0.005% Ophth Soln) 0 ml EYERT BEDTIME [facility] Lisinopril (Prinivil) 10 mg PO DAILY [facility] Last Admin: 11/22/18 10:35 Dose: 10 mg Multivitamins/Minerals (Vitamins And Minerals) 1 tab PO DAILY [facility] Last Admin: 11/22/18 10:34 Dose: 1 tab Non-Formulary Medication (Atropine Sulfate In 0.9% Nacl [Atropine 0.01%-Ns Eye Drops]) 1 drop EYERT BID [facility] Ondansetron HCl (Zofran Odt) 4 mg PO Q6H PRN PRN Reason: nausea, able to take PO Pantoprazole Sodium (Protonix) 40 mg PO BIDAC [facility] Polysaccharide Iron Complex (Ferrex 150) 150 mg PO DAILY [facility] Potassium Chloride (Klor-Con 10) 20 meq PO BIDMEALS [facility] Tramadol HCl (Ultram) 50 mg PO Q6H PRN PRN Reason: Pain Last Admin: 11/22/18 10:35 Dose: 50 mg Zolpidem Tartrate (Ambien) 5 mg PO BEDTIME PRN PRN Reason: Sleep Assessment/Plan Comment:: Fever, chills, leukocytosis Secondary to urinary tract infection Obtain blood culture Obtain urine culture Treat with Rocephin Anemia, severe In the setting of coronary artery disease with recent bypass, recent upper GI bleed Has known low ejection fraction 35% Will transfuse 1 unit of PRBCs Recheck hemoglobin Start iron Anemia is likely secondary to anemia following bypass and acute blood loss from GI bleed Had colonoscopy (diverticulosis) and upper GI endoscopy (gastric ulcer, gastritis) 10/18 Well use high-dose proton pump inhibitor Diabetes Hold metformin Cont glyburide Treat with mealtime insulin and Lantus Use supplemental insulin as needed Coronary artery disease Continue aspirin Start metoprolol DVT prophylaxis with subcutaneous heparin
[2018-11-22] MEDS: Brimonidine 0.15% Ophth Soln 5 ML Bottle EYERT SCH ×2 (11:19→21:45)
[2018-11-22] MEDS: Potassium Chloride 10 MEQ Tab.ER PO SCH ×2 (11:30→18:05)
[2018-11-22] MEDS: Pantoprazole 40 MG Tab.CR PO SCH ×2 (11:36→18:06)
[2018-11-22] MEDS: Iron Polysaccharides Complex 150 MG Cap PO SCH (11:36)
[2018-11-22] MEDS: Metoprolol Tartrate 25 MG Tab PO SCH ×2 (11:36→22:04)
[2018-11-22] MEDS: Cholecalciferol (Vitamin D3) 25 MCG Tab PO SCH (11:54)
[2018-11-22] MEDS: Heparin Sodium 5,000 Units/ML Vial SUBCUT SCH ×2 (14:23→21:58)
[2018-11-22] MEDS ORDERED: cefTRIAXone 1 GM in Sodium Chloride 0.9% 100 ML IV SCH (19:00)
[2018-11-22] MEDS: Acetaminophen 325 MG Tab PO PRN (21:48)
[2018-11-22] MEDS: Dorzolamide/Timolol 2%-0.5% Ophth Soln 10 ML Bottle EYERT SCH (21:51)
[2018-11-22] MEDS: Sodium Chloride 0.9% 10 ML Syringe FLUSH PRN (21:53)
[2018-11-22] MEDS: Latanoprost 0.005% Ophth Soln 2.5 ML Bottle EYERT SCH (22:02)
[2018-11-23] MEDS: Pantoprazole 40 MG Tab.CR PO SCH ×2 (05:16→18:21)
[2018-11-23] MEDS: Heparin Sodium 5,000 Units/ML Vial SUBCUT SCH ×3 (05:18→21:55)
[2018-11-23 06:41] LABS: ANION GAP 14.4
[2018-11-23] MEDS: cefTRIAXone 1 GM in Sodium Chloride 0.9% 100 ML IV SCH (07:58)
[2018-11-23] MEDS: Insulin Lispro 100 Units/ML 3 ML Vial SUBCUT SCH ×7 (08:21→21:56)
[2018-11-23] MEDS: Insulin Glarg,Human.Rec.Analog 100 UNIT/ML ML SUBCUT SCH (08:23)
[2018-11-23] MEDS: traMADol 50 MG Tab PO PRN (08:25)
[2018-11-23] MEDS: atorvaSTATin 20 MG Tab PO SCH (08:27)
[2018-11-23] MEDS: Potassium Chloride 10 MEQ Tab.ER PO SCH ×2 (08:27→18:21)
[2018-11-23] MEDS: Cholecalciferol (Vitamin D3) 25 MCG Tab PO SCH (08:27)
[2018-11-23] MEDS: Gabapentin 300 MG Cap PO SCH ×3 (08:27→20:33)
[2018-11-23] MEDS: glyBURIDE 5 MG Tab PO SCH ×2 (08:27→18:21)
[2018-11-23] MEDS: Lisinopril 10 MG Tab PO SCH (08:28)
[2018-11-23] MEDS: Iron Polysaccharides Complex 150 MG Cap PO SCH (08:28)
[2018-11-23] MEDS: Multivitamins, Therapeutic with Minerals Tab PO SCH (08:28)
[2018-11-23] MEDS: Aspirin 81 MG Tab.EC PO SCH (08:28)
[2018-11-23] MEDS: Brimonidine 0.15% Ophth Soln 5 ML Bottle EYERT SCH ×2 (08:31→20:32)
[2018-11-23] MEDS: Acetaminophen 325 MG Tab PO PRN (10:02)
[2018-11-23] MEDS: Metoprolol Tartrate 25 MG Tab PO SCH ×2 (10:04→22:05)
--- NOTE | 2018-11-23 10:15 | PCM.PN ---
- General Info Date of Service: 11/23/18 Admission Dx/Problem (Free Text): Admission Diagnosis/Problem Admission Diagnosis/Problem UTI, Urinary tract infectious disease Subjective Update: Feeling much stronger. Tolerating diet. No abdominal pain, no chills. No urinary burning. No cough no shortness of breath Functional Status: Reports: Pain Controlled, Tolerating Diet, Ambulating - Review of Systems General: Reports: Weakness (Improved). Denies: Fever Pulmonary: Denies: Shortness of Breath Cardiovascular: Denies: Chest Pain Gastrointestinal: Denies: Abdominal Pain Genitourinary: Denies: Dysuria Neurological: Denies: Confusion - Patient Data Vitals - Most Recent: Last Vital Signs Temp 37.4 C 11/23/18 07:16 Pulse 89 11/23/18 10:04 Resp 16 11/23/18 07:16 BP 140/62 11/23/18 10:04 Pulse Ox 100 11/23/18 08:31 Weight - Most Recent: 60.6 kg I&O - Last 24 Hours: Intake & Output 11/22/18 11/23/18 11/23/18 22:59 06:59 14:59 Intake Total 3020 800 Output Total 1500 600 Balance 1520 200 Lab Results Last 24 Hours: Laboratory Results - last 24 hr 11/22/18 11/22/18 11/22/18 Range/Units 04:39 11:09 16:51 WBC (5.0-10.0) 10^3/uL RBC (4.2-5.4) 10^6/uL Hgb (12.0-16.0) g/dL Hct (37.0-47.0) % MCV (80-100) fL MCH (27.0-34.0) pg MCHC (33.0-35.0) g/dL Plt Count (150-450) 10^3/uL Neut % (Auto) (42.2-75.2) % Lymph % (Auto) (20.5-50.1) % [place] % (Auto) (2-8) % Eos % (Auto) (1.0-3.0) % Baso % (Auto) (0.0-1.0) % Sodium (135-145) mmol/L Potassium (3.6-5.0) mmol/L Chloride (101-111) mmol/L Carbon Dioxide (21.0-31.0) mmol/L Anion Gap BUN (7-18) mg/dL Creatinine (0.6-1.3) mg/dL Est Cr Clr Drug Dosing mL/min Estimated GFR (MDRD) Glucose (74-105) mg/dL POC Glucose 173 H 71 (70-105) mg/dl Calcium (8.4-10.2) mg/dl Crossmatch See Detail 11/22/18 11/23/18 11/23/18 Range/Units 20:54 04:39 05:49 WBC 10.4 H (5.0-10.0) 10^3/uL RBC 3.48 L (4.2-5.4) 10^6/uL Hgb 9.0 L D (12.0-16.0) g/dL Hct 28.8 L (37.0-47.0) % MCV 82.8 (80-100) fL MCH 25.9 L (27.0-34.0) pg MCHC 31.3 L (33.0-35.0) g/dL Plt Count 427 (150-450) 10^3/uL Neut % (Auto) 62.3 (42.2-75.2) % Lymph % (Auto) 23.7 (20.5-50.1) % [place] % (Auto) 10.0 H (2-8) % Eos % (Auto) 3.8 H (1.0-3.0) % Baso % (Auto) 0.2 (0.0-1.0) % Sodium (135-145) mmol/L Potassium (3.6-5.0) mmol/L Chloride (101-111) mmol/L Carbon Dioxide (21.0-31.0) mmol/L Anion Gap BUN (7-18) mg/dL Creatinine (0.6-1.3) mg/dL Est Cr Clr Drug Dosing mL/min Estimated GFR (MDRD) Glucose (74-105) mg/dL POC Glucose 74 76 (70-105) mg/dl Calcium (8.4-10.2) mg/dl Crossmatch 11/23/18 11/23/18 Range/Units 05:49 07:22 WBC (5.0-10.0) 10^3/uL RBC (4.2-5.4) 10^6/uL Hgb (12.0-16.0) g/dL Hct (37.0-47.0) % MCV (80-100) fL MCH (27.0-34.0) pg MCHC (33.0-35.0) g/dL Plt Count (150-450) 10^3/uL Neut % (Auto) (42.2-75.2) % Lymph % (Auto) (20.5-50.1) % [place] % (Auto) (2-8) % Eos % (Auto) (1.0-3.0) % Baso % (Auto) (0.0-1.0) % Sodium 134 L (135-145) mmol/L Potassium 4.4 (3.6-5.0) mmol/L Chloride 102 (101-111) mmol/L Carbon Dioxide 22.0 (21.0-31.0) mmol/L Anion Gap 14.4 BUN 17 (7-18) mg/dL Creatinine 1.3 (0.6-1.3) mg/dL Est Cr Clr Drug Dosing 31.82 mL/min Estimated GFR (MDRD) 41 Glucose 131 H (74-105) mg/dL POC Glucose 210 H (70-105) mg/dl Calcium 8.5 (8.4-10.2) mg/dl Crossmatch Julio Results Last 24 Hours: Microbiology 11/22/18 04:39 Aerobic Blood Culture - Preliminary Blood Anaerobic Blood Culture - Preliminary 11/22/18 04:35 Urine Culture - Preliminary Urine, Clean Catch 11/22/18 04:36 Influenza Type A Antigen Screen - Final Nasal, Right NEGATIVE INFLUENZA A VIRUS AG REFERENCE RANGE: NEGATIVE Influenza Type B Antigen Screen - Final NEGATIVE INFLUENZA B VIRUS AG REFERENCE RANGE: NEGATIVE 11/22/18 05:07 Stool Occult Blood (JULIO) - Final Stool / Feces NEGATIVE OCCULT BLOOD REFERENCE RANGE: NEGATIVE Med Orders - Current: Current Medications Acetaminophen (Tylenol) 650 mg PO Q4H PRN PRN Reason: Pain (Mild 1-3)/fever Last Admin: 11/23/18 10:02 Dose: 650 mg Aspirin (Halfprin) 81 mg PO DAILY [facility] Last Admin: 11/23/18 08:28 Dose: 81 mg Atorvastatin Calcium (Lipitor) 20 mg PO DAILY [facility] Last Admin: 11/23/18 08:27 Dose: 20 mg Brimonidine Tartrate (Alphagan P 0.15% Oph Soln) 0 ml EYERT BID [facility] Last Admin: 11/23/18 08:31 Dose: 1 drop Cholecalciferol (Vitamin D3) 1,000 units PO DAILY [facility] Last Admin: 11/23/18 08:27 Dose: 1,000 units Docusate Sodium (Colace) 100 mg PO BID PRN PRN Reason: Constipation Dorzolamide/Timolol (Cosopt 2%-0.5% Oph Soln) 0 ml EYERT BEDTIME [facility] Last Admin: 11/22/18 21:51 Dose: 1 drop Gabapentin (Neurontin) 600 mg PO TID [facility] Last Admin: 11/23/18 08:27 Dose: 600 mg Glyburide (Micronase) 10 mg PO BIDMEALS [facility] Last Admin: 11/23/18 08:27 Dose: 10 mg Heparin Sodium (Porcine) (Heparin Sodium) 5,000 units SUBCUT Q8HR [facility] Last Admin: 11/23/18 05:18 Dose: 5,000 units Ceftriaxone Sodium 1 gm/ (Sodium Chloride) 100 mls @ 200 mls/hr IV Q24H [facility] Last Admin: 11/23/18 07:58 Dose: 200 mls/hr Insulin Glargine (Lantus) 15 unit SUBCUT QAM [facility] Last Admin: 11/23/18 08:23 Dose: 15 unit Insulin Human Lispro (Humalog) 0 unit SUBCUT ACBED [facility]; Protocol Last Admin: 11/23/18 08:21 Dose: 2 unit Insulin Human Lispro (Humalog) 5 unit SUBCUT TIDMEALS [facility] Last Admin: 11/23/18 08:22 Dose: 5 unit Latanoprost (Xalatan 0.005% Oph Soln) 0 ml EYERT BEDTIME [facility] Last Admin: 11/22/18 22:02 Dose: 1 drop Lisinopril (Prinivil) 10 mg PO DAILY [facility] Last Admin: 11/23/18 08:28 Dose: 10 mg Metoprolol Tartrate (Lopressor) 25 mg PO Q12H [facility] Last Admin: 11/23/18 10:04 Dose: 25 mg Multivitamins/Minerals (Vitamins And Minerals) 1 tab PO DAILY [facility] Last Admin: 11/23/18 08:28 Dose: 1 tab Non-Formulary Medication (Atropine Sulfate In 0.9% Nacl [Atropine 0.01%-Ns Eye Drops]) 1 drop EYERT BID [facility] Ondansetron HCl (Zofran Odt) 4 mg PO Q6H PRN PRN Reason: nausea, able to take PO Oxycodone/Acetaminophen (Percocet 325-5 Mg) 1 tab PO Q6HR PRN PRN Reason: Pain (moderate 4-6) Pantoprazole Sodium (Protonix) 40 mg PO BIDAC [facility] Last Admin: 11/23/18 05:16 Dose: 40 mg Polysaccharide Iron Complex (Ferrex 150) 150 mg PO DAILY [facility] Last Admin: 11/23/18 08:28 Dose: 150 mg Potassium Chloride (Klor-Con 10) 20 meq PO BIDMEALS [facility] Last Admin: 11/23/18 08:27 Dose: 20 meq Sodium Chloride (Saline Flush) 10 ml FLUSH ASDIRECTED PRN PRN Reason: Keep Vein Open Last Admin: 11/22/18 21:53 Dose: 10 ml Tramadol HCl (Ultram) 50 mg PO Q6H PRN PRN Reason: Pain Last Admin: 11/23/18 08:25 Dose: 50 mg Zolpidem Tartrate (Ambien) 5 mg PO BEDTIME PRN PRN Reason: Sleep Discontinued Medications Acetaminophen (Tylenol) 650 mg PO NOW ONE Stop: 11/22/18 05:05 Last Admin: 11/22/18 05:11 Dose: 650 mg Sodium Chloride (Normal Saline) 1,000 mls @ 500 mls/hr IV .BOLUS ONE Stop: 11/22/18 06:39 Last Infusion: 11/22/18 08:07 Dose: Infused Ceftriaxone Sodium 1 gm/ (Sodium Chloride) 50 mls @ 50 mls/hr IV ONETIME ONE Stop: 11/22/18 06:45 Last Admin: 11/22/18 05:54 Dose: 50 mls/hr Ceftriaxone Sodium 1 gm/ (Sodium Chloride) 100 mls @ 200 mls/hr IV Q24H [facility] Last Admin: 11/22/18 22:12 Dose: Not Given Ketorolac Tromethamine (Toradol) 15 mg IVPUSH ONETIME ONE Stop: 11/22/18 04:41 Last Admin: 11/22/18 04:46 Dose: 15 mg - Exam General: Alert, Oriented Neck: Supple Lungs: Clear to Auscultation, Normal Respiratory Effort Cardiovascular: Regular Rate, Regular Rhythm GI/Abdominal Exam: Normal Bowel Sounds, Soft, Non-Tender Extremities: No Pedal Edema - Problem List & Annotations (1) CAD (coronary artery disease) SNOMED Code(s): 10725554 Code(s): I25.10 - ATHSCL HEART DISEASE OF [place] CORONARY ARTERY W/O ANG PCTRS Status: Acute Current Visit: Yes (2) Diabetes SNOMED Code(s): 65563471 Code(s): E11.9 - TYPE 2 DIABETES MELLITUS WITHOUT COMPLICATIONS Status: Acute Current Visit: Yes (3) Anemia SNOMED Code(s): 696592498 Code(s): D64.9 - ANEMIA, UNSPECIFIED Status: Acute Current Visit: No Qualifiers: Anemia type: unspecified type Qualified Code(s): D64.9 - Anemia, unspecified (4) UTI (urinary tract infection) SNOMED Code(s): 11796491 Code(s): N39.0 - URINARY TRACT INFECTION, SITE NOT SPECIFIED Status: Acute Current Visit: No Qualifiers: Urinary tract infection type: site unspecified Hematuria presence: without hematuria Qualified Code(s): N39.0 - Urinary tract infection, site not specified - Problem List Review Problem List Initiated/Reviewed/Updated: Yes - My Orders Last 24 Hours: My Active Orders 11/22/18 10:00 Insulin Lispro [HumaLOG] See Protocol SUBCUT ACBED Pantoprazole [ProTONIX] 40 mg PO BIDAC 11/22/18 10:15 Iron Polysaccharides Complex [Ferrex 150] 150 mg PO DAILY 11/22/18 10:45 Acetaminophen/oxyCODONE [Percocet 325-5 MG] 1 tab PO Q6HR PRN 11/22/18 11:00 Metoprolol Tartrate [Lopressor] 25 mg PO Q12H 11/22/18 12:00 Insulin Lispro [HumaLOG] 5 unit SUBCUT TIDMEALS 11/22/18 12:05 Peripheral IV Care [RC] 09,21 Sodium Chloride 0.9% [Saline Flush] 10 ml FLUSH ASDIRECTED PRN Peripheral IV Insertion Adult [OM.PC] Routine 11/22/18 14:00 Heparin Sodium 5,000 units SUBCUT Q8HR 11/22/18 21:00 Dorzolamide/Timolol [Cosopt 2%-0.5% Ophth Soln] 0 ml EYERT BEDTIME Latanoprost [Xalatan 0.005% Ophth Soln] 0 ml EYERT BEDTIME 11/22/18 Lunch Consistent Carbohydrate Diet [DIET] 11/23/18 08:00 cefTRIAXone [Rocephin] 1 gm Sodium Chloride 0.9% [Normal Saline] 100 ml IV Q24H - Plan Plan:: Fever, chills, leukocytosis Secondary to urinary tract infection with sepsis POA blood culture: gram neg urine culture: gram neg Treat with Rocephin clinically better repeat BC tomorrow Anemia, severe In the setting of coronary artery disease with recent bypass, recent upper GI bleed Has known low ejection fraction 35% on 11/22 transfused 1 unit of PRBCs follow hemoglobin cont iron Anemia is likely secondary to anemia following bypass and acute blood loss from GI bleed Had colonoscopy (diverticulosis) and upper GI endoscopy (gastric ulcer, gastritis) 10/18 Well use high-dose proton pump inhibitor Diabetes Hold metformin Cont glyburide Treat with mealtime insulin and Lantus Use supplemental insulin as needed Coronary artery disease Continue aspirin Start metoprolol DVT prophylaxis with subcutaneous heparin
[2018-11-23] MEDS: Acetaminophen/oxyCODONE 325-5 MG Tab PO PRN ×2 (11:51→18:20)
[2018-11-23] MEDS ORDERED: Lidocaine 5% 700 MG Patch TOP PRN (18:28)
[2018-11-23] MEDS: Dorzolamide/Timolol 2%-0.5% Ophth Soln 10 ML Bottle EYERT SCH (20:34)
[2018-11-23] MEDS: Latanoprost 0.005% Ophth Soln 2.5 ML Bottle EYERT SCH (20:38)
[2018-11-23] MEDS: Sodium Chloride 0.9% 10 ML Syringe FLUSH PRN (22:06)
[2018-11-24] MEDS: Acetaminophen/oxyCODONE 325-5 MG Tab PO PRN ×2 (03:22→21:01)
[2018-11-24] MEDS: Heparin Sodium 5,000 Units/ML Vial SUBCUT SCH ×3 (06:08→22:28)
[2018-11-24] MEDS: Pantoprazole 40 MG Tab.CR PO SCH ×2 (06:08→17:33)
[2018-11-24] MEDS: Gabapentin 300 MG Cap PO SCH ×3 (09:02→21:01)
[2018-11-24] MEDS: Multivitamins, Therapeutic with Minerals Tab PO SCH (09:02)
[2018-11-24] MEDS: Cholecalciferol (Vitamin D3) 25 MCG Tab PO SCH (09:02)
[2018-11-24] MEDS: Potassium Chloride 10 MEQ Tab.ER PO SCH ×2 (09:02→17:33)
[2018-11-24] MEDS: Aspirin 81 MG Tab.EC PO SCH (09:03)
[2018-11-24] MEDS: glyBURIDE 5 MG Tab PO SCH (09:03)
[2018-11-24] MEDS: atorvaSTATin 20 MG Tab PO SCH (09:03)
[2018-11-24] MEDS: Brimonidine 0.15% Ophth Soln 5 ML Bottle EYERT SCH ×2 (09:03→21:03)
[2018-11-24] MEDS: Iron Polysaccharides Complex 150 MG Cap PO SCH (09:03)
[2018-11-24] MEDS: Sodium Chloride 0.9% 10 ML Syringe FLUSH PRN ×2 (09:04→09:46)
[2018-11-24] MEDS: cefTRIAXone 1 GM in Sodium Chloride 0.9% 100 ML IV SCH (09:04)
[2018-11-24] MEDS: Insulin Lispro 100 Units/ML 3 ML Vial SUBCUT SCH ×6 (09:08→21:30)
[2018-11-24] MEDS: Lisinopril 10 MG Tab PO SCH (09:13)
[2018-11-24] MEDS: traMADol 50 MG Tab PO PRN (09:27)
[2018-11-24] MEDS: Insulin Glarg,Human.Rec.Analog 100 UNIT/ML ML SUBCUT SCH ×2 (09:48→14:16)
--- NOTE | 2018-11-24 11:07 | PCM.PN ---
- General Info Date of Service: 11/24/18 Admission Dx/Problem (Free Text): Admission Diagnosis/Problem Admission Diagnosis/Problem UTI, Urinary tract infectious disease Subjective Update: Feeling well. Tolerating diet. No abdominal pain, no chills. No urinary burning. No cough no shortness of breath has been up and walking Functional Status: Reports: Tolerating Diet - Review of Systems General: Denies: Fever, Weakness Pulmonary: Denies: Shortness of Breath Cardiovascular: Denies: Chest Pain Gastrointestinal: Denies: Abdominal Pain Genitourinary: Denies: Dysuria - Patient Data Vitals - Most Recent: Last Vital Signs Temp 36.5 C 11/24/18 08:00 Pulse 81 11/24/18 08:00 Resp 20 11/24/18 08:00 BP 121/55 L 11/24/18 09:13 Pulse Ox 99 11/24/18 08:00 Weight - Most Recent: 62.505 kg I&O - Last 24 Hours: Intake & Output 11/23/18 11/24/18 11/24/18 22:59 06:59 14:59 Intake Total 600 1100 90 Output Total 3400 1000 Balance -2800 100 90 Lab Results Last 24 Hours: Laboratory Results - last 24 hr 11/23/18 11/23/18 11/23/18 Range/Units 11:07 16:40 21:00 POC Glucose 109 H 78 51 L (70-105) mg/dl 11/24/18 11/24/18 Range/Units 02:52 07:20 POC Glucose 76 208 H (70-105) mg/dl Julio Results Last 24 Hours: Microbiology 11/22/18 04:35 Urine Culture - Final Urine, Clean Catch Escherichia Coli 11/22/18 04:39 Aerobic Blood Culture - Final Blood Escherichia Coli Anaerobic Blood Culture - Final Escherichia Coli Med Orders - Current: Current Medications Acetaminophen (Tylenol) 650 mg PO Q4H PRN PRN Reason: Pain (Mild 1-3)/fever Last Admin: 11/23/18 10:02 Dose: 650 mg Aspirin (Halfprin) 81 mg PO DAILY [facility] Last Admin: 11/24/18 09:03 Dose: 81 mg Atorvastatin Calcium (Lipitor) 20 mg PO DAILY [facility] Last Admin: 11/24/18 09:03 Dose: 20 mg Brimonidine Tartrate (Alphagan P 0.15% Ophth Soln) 0 ml EYERT BID [facility] Last Admin: 11/24/18 09:03 Dose: 1 drop Cholecalciferol (Vitamin D3) 1,000 units PO DAILY [facility] Last Admin: 11/24/18 09:02 Dose: 1,000 units Docusate Sodium (Colace) 100 mg PO BID PRN PRN Reason: Constipation Dorzolamide/Timolol (Cosopt 2%-0.5% Ophth Soln) 0 ml EYERT BEDTIME [facility] Last Admin: 11/23/18 20:34 Dose: 1 drop Gabapentin (Neurontin) 600 mg PO TID [facility] Last Admin: 11/24/18 09:02 Dose: 600 mg Glyburide (Micronase) 10 mg PO BIDMEALS [facility] Last Admin: 11/24/18 09:03 Dose: 10 mg Heparin Sodium (Porcine) (Heparin Sodium) 5,000 units SUBCUT Q8HR [facility] Last Admin: 11/24/18 06:08 Dose: 5,000 units Ceftriaxone Sodium 1 gm/ (Sodium Chloride) 100 mls @ 200 mls/hr IV Q24H [facility] Last Infusion: 11/24/18 09:45 Dose: Infused Insulin Glargine (Lantus) 15 unit SUBCUT QAM [facility] Last Admin: 11/24/18 09:48 Dose: Not Given Insulin Human Lispro (Humalog) 0 unit SUBCUT ACBED [facility]; Protocol Last Admin: 11/24/18 09:10 Dose: 2 unit Insulin Human Lispro (Humalog) 5 unit SUBCUT TIDMEALS [facility] Last Admin: 11/24/18 09:08 Dose: 5 unit Latanoprost (Xalatan 0.005% Ophth Soln) 0 ml EYERT BEDTIME [facility] Last Admin: 11/23/18 20:38 Dose: 1 drop Lidocaine (Lidoderm 5%) 700 mg TOP DAILY PRN PRN Reason: back pain Lisinopril (Prinivil) 10 mg PO DAILY [facility] Last Admin: 11/24/18 09:13 Dose: 10 mg Metoprolol Tartrate (Lopressor) 25 mg PO Q12H [facility] Last Admin: 11/23/18 22:05 Dose: 25 mg Miscellaneous Information (Remove Patch) 1 ea TRDERM DAILY PRN PRN Reason: patch removal Multivitamins/Minerals (Vitamins And Minerals) 1 tab PO DAILY [facility] Last Admin: 11/24/18 09:02 Dose: 1 tab Non-Formulary Medication (Atropine Sulfate In 0.9% Nacl [Atropine 0.01%-Ns Eye Drops]) 1 drop EYERT BID [facility] Ondansetron HCl (Zofran Odt) 4 mg PO Q6H PRN PRN Reason: nausea, able to take PO Oxycodone/Acetaminophen (Percocet 325-5 Mg) 1 tab PO Q6HR PRN PRN Reason: Pain (moderate 4-6) Last Admin: 11/24/18 03:22 Dose: 1 tab Pantoprazole Sodium (Protonix) 40 mg PO BIDAC [facility] Last Admin: 11/24/18 06:08 Dose: 40 mg Polysaccharide Iron Complex (Ferrex 150) 150 mg PO DAILY [facility] Last Admin: 11/24/18 09:03 Dose: 150 mg Potassium Chloride (Klor-Con 10) 20 meq PO BIDMEALS [facility] Last Admin: 11/24/18 09:02 Dose: 20 meq Sodium Chloride (Saline Flush) 10 ml FLUSH ASDIRECTED PRN PRN Reason: Keep Vein Open Last Admin: 11/24/18 09:46 Dose: 10 ml Tramadol HCl (Ultram) 50 mg PO Q6H PRN PRN Reason: Pain Last Admin: 11/24/18 09:27 Dose: 50 mg Zolpidem Tartrate (Ambien) 5 mg PO BEDTIME PRN PRN Reason: Sleep Discontinued Medications Acetaminophen (Tylenol) 650 mg PO NOW ONE Stop: 11/22/18 05:05 Last Admin: 11/22/18 05:11 Dose: 650 mg Sodium Chloride (Normal Saline) 1,000 mls @ 500 mls/hr IV .BOLUS ONE Stop: 11/22/18 06:39 Last Infusion: 11/22/18 08:07 Dose: Infused Ceftriaxone Sodium 1 gm/ (Sodium Chloride) 50 mls @ 50 mls/hr IV ONETIME ONE Stop: 11/22/18 06:45 Last Admin: 11/22/18 05:54 Dose: 50 mls/hr Ceftriaxone Sodium 1 gm/ (Sodium Chloride) 100 mls @ 200 mls/hr IV Q24H [facility] Last Admin: 11/22/18 22:12 Dose: Not Given Ketorolac Tromethamine (Toradol) 15 mg IVPUSH ONETIME ONE Stop: 11/22/18 04:41 Last Admin: 11/22/18 04:46 Dose: 15 mg - Exam General: Alert, Oriented Neck: Supple Lungs: Clear to Auscultation, Normal Respiratory Effort Cardiovascular: Regular Rate, Regular Rhythm GI/Abdominal Exam: Normal Bowel Sounds, Soft, Non-Tender Extremities: No Pedal Edema - Problem List & Annotations (1) CAD (coronary artery disease) SNOMED Code(s): 20678126 Code(s): I25.10 - ATHSCL HEART DISEASE OF [place] CORONARY ARTERY W/O ANG PCTRS Status: Acute Current Visit: Yes (2) Diabetes SNOMED Code(s): 97092292 Code(s): E11.9 - TYPE 2 DIABETES MELLITUS WITHOUT COMPLICATIONS Status: Acute Current Visit: Yes (3) Anemia SNOMED Code(s): 479304348 Code(s): D64.9 - ANEMIA, UNSPECIFIED Status: Acute Current Visit: No Qualifiers: Anemia type: unspecified type Qualified Code(s): D64.9 - Anemia, unspecified (4) UTI (urinary tract infection) SNOMED Code(s): 39195611 Code(s): N39.0 - URINARY TRACT INFECTION, SITE NOT SPECIFIED Status: Acute Current Visit: No Qualifiers: Urinary tract infection type: site unspecified Hematuria presence: without hematuria Qualified Code(s): N39.0 - Urinary tract infection, site not specified - Problem List Review Problem List Initiated/Reviewed/Updated: Yes - My Orders Last 24 Hours: My Active Orders 11/23/18 18:28 Lidocaine 5% [Lidoderm 5%] 700 mg TOP DAILY PRN 11/23/18 18:43 Remove Patch 1 ea TRDERM DAILY PRN 11/25/18 05:15 BASIC METABOLIC PANEL,BMP [CHEM] AM CBC WITH AUTO DIFF [HEME] AM - Plan Plan:: Fever, chills, leukocytosis Secondary to urinary tract infection with sepsis POA due to E coli blood culture: e coli - sens to ceftriaxone urine culture: e coli Treat with Rocephin clinically better repeat BC today d/w sw - plan for swing bed for IV ABx Anemia, severe In the setting of coronary artery disease with recent bypass, recent upper GI bleed Has known low ejection fraction 35% on 11/22 transfused 1 unit of PRBCs follow hemoglobin occult blood stool negative cont iron Anemia is likely secondary to anemia following bypass and acute blood loss from GI bleed Had colonoscopy (diverticulosis) and upper GI endoscopy (gastric ulcer, gastritis) 10/18 Well use high-dose proton pump inhibitor Diabetes Hold metformin Cont glyburide Treat with mealtime insulin and Lantus Use supplemental insulin as needed Coronary artery disease Continue aspirin Started metoprolol DVT prophylaxis with subcutaneous heparin
[2018-11-24] MEDS: Metoprolol Tartrate 25 MG Tab PO SCH ×2 (12:22→21:00)
[2018-11-24] MEDS: ATROPINE SULFATE EYERT SCH ×2 (18:49→21:44)
[2018-11-24] MEDS: [UNRECOGNIZED DRUG - OTHER] EYERT SCH ×2 (18:49→21:44)
[2018-11-24] MEDS: NACL 0.9% EYERT SCH ×2 (18:49→21:44)
[2018-11-24] MEDS: Latanoprost 0.005% Ophth Soln 2.5 ML Bottle EYERT SCH (21:02)
[2018-11-24] MEDS: Dorzolamide/Timolol 2%-0.5% Ophth Soln 10 ML Bottle EYERT SCH (21:02)
[2018-11-25] MEDS: Heparin Sodium 5,000 Units/ML Vial SUBCUT SCH ×3 (05:18→21:31)
[2018-11-25] MEDS: Pantoprazole 40 MG Tab.CR PO SCH ×2 (05:19→17:34)
[2018-11-25 06:54] LABS: ANION GAP 15.1
[2018-11-25] MEDS: Potassium Chloride 10 MEQ Tab.ER PO SCH ×2 (08:21→17:39)
[2018-11-25] MEDS: Lisinopril 10 MG Tab PO SCH (08:21)
[2018-11-25] MEDS: Metoprolol Tartrate 25 MG Tab PO SCH ×2 (08:22→21:28)
[2018-11-25] MEDS: Iron Polysaccharides Complex 150 MG Cap PO SCH (08:22)
[2018-11-25] MEDS: Multivitamins, Therapeutic with Minerals Tab PO SCH (08:22)
[2018-11-25] MEDS: Gabapentin 300 MG Cap PO SCH ×3 (08:22→21:29)
[2018-11-25] MEDS: atorvaSTATin 20 MG Tab PO SCH (08:22)
[2018-11-25] MEDS: traMADol 50 MG Tab PO PRN (08:23)
[2018-11-25] MEDS: Aspirin 81 MG Tab.EC PO SCH (08:23)
[2018-11-25] MEDS: Brimonidine 0.15% Ophth Soln 5 ML Bottle EYERT SCH ×2 (08:23→21:31)
[2018-11-25] MEDS: Cholecalciferol (Vitamin D3) 25 MCG Tab PO SCH (08:23)
[2018-11-25] MEDS: cefTRIAXone 1 GM in Sodium Chloride 0.9% 100 ML IV SCH (08:24)
[2018-11-25] MEDS: Insulin Lispro 100 Units/ML 3 ML Vial SUBCUT SCH ×4 (08:25→21:30)
[2018-11-25] MEDS: Insulin Glarg,Human.Rec.Analog 100 UNIT/ML ML SUBCUT SCH (08:26)
[2018-11-25] MEDS: Sodium Chloride 0.9% 10 ML Syringe FLUSH PRN ×2 (08:34→09:08)
[2018-11-25] MEDS: Acetaminophen/oxyCODONE 325-5 MG Tab PO PRN ×3 (10:34→23:14)
--- NOTE | 2018-11-25 14:22 | PCM.PN ---
- General Info Date of Service: 11/25/18 Admission Dx/Problem (Free Text): Admission Diagnosis/Problem Admission Diagnosis/Problem UTI, Urinary tract infectious disease Subjective Update: Feeling well. Tolerating diet. No abdominal pain, no chills. No urinary burning. No cough no shortness of breath Blood Cultures are positive for Escherichia coli Repeat cultures are pending - Patient Data Vitals - Most Recent: Last Vital Signs Temp 36.6 C 11/25/18 12:00 Pulse 86 11/25/18 12:00 Resp 20 11/25/18 12:00 BP 154/63 H 11/25/18 12:00 Pulse Ox 100 11/25/18 12:00 Weight - Most Recent: 61.144 kg I&O - Last 24 Hours: Intake & Output 11/24/18 11/25/18 11/25/18 22:59 06:59 14:59 Intake Total 600 2212 Output Total 1000 Balance 600 -1000 2212 Lab Results Last 24 Hours: Laboratory Results - last 24 hr 11/24/18 11/24/18 11/25/18 Range/Units 17:02 21:13 06:02 WBC 9.0 (5.0-10.0) 10^3/uL RBC 3.32 L (4.2-5.4) 10^6/uL Hgb 8.6 L (12.0-16.0) g/dL Hct 27.9 L (37.0-47.0) % MCV 84.0 (80-100) fL MCH 25.9 L (27.0-34.0) pg MCHC 30.8 L (33.0-35.0) g/dL Plt Count 498 H (150-450) 10^3/uL Neut % (Auto) 54.9 (42.2-75.2) % Lymph % (Auto) 32.0 (20.5-50.1) % Alfalfa % (Auto) 8.9 H (2-8) % Eos % (Auto) 4.0 H (1.0-3.0) % Baso % (Auto) 0.2 (0.0-1.0) % Sodium (135-145) mmol/L Potassium (3.6-5.0) mmol/L Chloride (101-111) mmol/L Carbon Dioxide (21.0-31.0) mmol/L Anion Gap BUN (7-18) mg/dL Creatinine (0.6-1.3) mg/dL Est Cr Clr Drug Dosing mL/min Estimated GFR (MDRD) Glucose (74-105) mg/dL POC Glucose 55 L 203 H (70-105) mg/dl Calcium (8.4-10.2) mg/dl 11/25/18 11/25/18 11/25/18 Range/Units 06:02 07:46 11:06 WBC (5.0-10.0) 10^3/uL RBC (4.2-5.4) 10^6/uL Hgb (12.0-16.0) g/dL Hct (37.0-47.0) % MCV (80-100) fL MCH (27.0-34.0) pg MCHC (33.0-35.0) g/dL Plt Count (150-450) 10^3/uL Neut % (Auto) (42.2-75.2) % Lymph % (Auto) (20.5-50.1) % Alfalfa % (Auto) (2-8) % Eos % (Auto) (1.0-3.0) % Baso % (Auto) (0.0-1.0) % Sodium 136 (135-145) mmol/L Potassium 4.1 (3.6-5.0) mmol/L Chloride 103 (101-111) mmol/L Carbon Dioxide 22.0 (21.0-31.0) mmol/L Anion Gap 15.1 BUN 21 H (7-18) mg/dL Creatinine 1.3 (0.6-1.3) mg/dL Est Cr Clr Drug Dosing 31.82 mL/min Estimated GFR (MDRD) 41 Glucose 139 H (74-105) mg/dL POC Glucose 166 H 322 H (70-105) mg/dl Calcium 8.6 (8.4-10.2) mg/dl Julio Results Last 24 Hours: Microbiology 11/24/18 11:38 Aerobic Blood Culture - Preliminary Blood - Venous - Lab Draw NO GROWTH AFTER 1 DAY Anaerobic Blood Culture - Preliminary NO GROWTH AFTER 1 DAY 11/24/18 11:30 Aerobic Blood Culture - Preliminary Blood - Venous NO GROWTH AFTER 1 DAY Anaerobic Blood Culture - Preliminary NO GROWTH AFTER 1 DAY Med Orders - Current: Current Medications Acetaminophen (Tylenol) 650 mg PO Q4H PRN PRN Reason: Pain (Mild 1-3)/fever Last Admin: 11/23/18 10:02 Dose: 650 mg Aspirin (Halfprin) 81 mg PO DAILY [facility] Last Admin: 11/25/18 08:23 Dose: 81 mg Atorvastatin Calcium (Lipitor) 20 mg PO DAILY [facility] Last Admin: 11/25/18 08:22 Dose: 20 mg Brimonidine Tartrate (Alphagan P 0.15% Ophth Soln) 0 ml EYERT BID [facility] Last Admin: 11/25/18 08:23 Dose: 1 drop Cholecalciferol (Vitamin D3) 1,000 units PO DAILY [facility] Last Admin: 11/25/18 08:23 Dose: 1,000 units Docusate Sodium (Colace) 100 mg PO BID PRN PRN Reason: Constipation Dorzolamide/Timolol (Cosopt 2%-0.5% Ophth Soln) 0 ml EYERT BEDTIME [facility] Last Admin: 11/24/18 21:02 Dose: 1 drop Gabapentin (Neurontin) 600 mg PO TID [facility] Last Admin: 11/25/18 13:49 Dose: 600 mg Heparin Sodium (Porcine) (Heparin Sodium) 5,000 units SUBCUT Q8HR [facility] Last Admin: 11/25/18 13:49 Dose: 5,000 units Ceftriaxone Sodium 1 gm/ (Sodium Chloride) 100 mls @ 200 mls/hr IV Q24H [facility] Insulin Glargine (Lantus) 10 unit SUBCUT QAM [facility] Last Admin: 11/25/18 08:26 Dose: 10 units Insulin Human Lispro (Humalog) 0 unit SUBCUT ACBED [facility]; Protocol Last Admin: 11/25/18 13:11 Dose: 4 unit Latanoprost (Xalatan 0.005% Ophth Soln) 0 ml EYERT BEDTIME [facility] Last Admin: 11/24/18 21:02 Dose: 1 drop Lidocaine (Lidoderm 5%) 700 mg TOP DAILY PRN PRN Reason: back pain Lisinopril (Prinivil) 10 mg PO DAILY [facility] Last Admin: 11/25/18 08:21 Dose: 10 mg Metoprolol Tartrate (Lopressor) 25 mg PO BID@0900,2100 [facility] Last Admin: 11/25/18 08:22 Dose: 25 mg Miscellaneous Information (Remove Patch) 1 ea TRDERM DAILY PRN PRN Reason: patch removal Multivitamins/Minerals (Vitamins And Minerals) 1 tab PO DAILY [facility] Last Admin: 11/25/18 08:22 Dose: 1 tab Ondansetron HCl (Zofran Odt) 4 mg PO Q6H PRN PRN Reason: nausea, able to take PO Oxycodone/Acetaminophen (Percocet 325-5 Mg) 1 tab PO Q6HR PRN PRN Reason: Pain (moderate 4-6) Last Admin: 11/25/18 10:34 Dose: 1 tab Pantoprazole Sodium (Protonix) 40 mg PO BIDAC [facility] Last Admin: 11/25/18 05:19 Dose: 40 mg Polysaccharide Iron Complex (Ferrex 150) 150 mg PO DAILY [facility] Last Admin: 11/25/18 08:22 Dose: 150 mg Potassium Chloride (Klor-Con 10) 20 meq PO BIDMEALS [facility] Last Admin: 11/25/18 08:21 Dose: 20 meq Sodium Chloride (Saline Flush) 10 ml FLUSH ASDIRECTED PRN PRN Reason: Keep Vein Open Last Admin: 11/25/18 09:08 Dose: 10 ml Tramadol HCl (Ultram) 50 mg PO Q6H PRN PRN Reason: Pain Last Admin: 11/25/18 08:23 Dose: 50 mg Zolpidem Tartrate (Ambien) 5 mg PO BEDTIME PRN PRN Reason: Sleep Discontinued Medications Acetaminophen (Tylenol) 650 mg PO NOW ONE Stop: 11/22/18 05:05 Last Admin: 11/22/18 05:11 Dose: 650 mg Glyburide (Micronase) 10 mg PO BIDMEALS [facility] Last Admin: 11/24/18 09:03 Dose: 10 mg Sodium Chloride (Normal Saline) 1,000 mls @ 500 mls/hr IV .BOLUS ONE Stop: 11/22/18 06:39 Last Infusion: 11/22/18 08:07 Dose: Infused Ceftriaxone Sodium 1 gm/ (Sodium Chloride) 50 mls @ 50 mls/hr IV ONETIME ONE Stop: 11/22/18 06:45 Last Admin: 11/22/18 05:54 Dose: 50 mls/hr Ceftriaxone Sodium 1 gm/ (Sodium Chloride) 100 mls @ 200 mls/hr IV Q24H [facility] Last Admin: 11/22/18 22:12 Dose: Not Given Ceftriaxone Sodium 1 gm/ (Sodium Chloride) 100 mls @ 200 mls/hr IV Q24H [facility] Last Admin: 11/25/18 08:24 Dose: 200 mls/hr Insulin Glargine (Lantus) 15 unit SUBCUT QAM [facility] Last Admin: 11/24/18 09:48 Dose: Not Given Insulin Human Lispro (Humalog) 5 unit SUBCUT TIDMEALS [facility] Last Admin: 11/24/18 12:18 Dose: 5 unit Ketorolac Tromethamine (Toradol) 15 mg IVPUSH ONETIME ONE Stop: 11/22/18 04:41 Last Admin: 11/22/18 04:46 Dose: 15 mg Metoprolol Tartrate (Lopressor) 25 mg PO Q12H [facility] Last Admin: 11/24/18 12:22 Dose: 25 mg Non-Formulary Medication (Atropine Sulfate In 0.9% Nacl [Atropine 0.01%-Ns Eye Drops]) 1 drop EYERT BID [facility] Last Admin: 11/24/18 21:44 Dose: Not Given - Exam General: Alert, Oriented Lungs: Clear to Auscultation Cardiovascular: Regular Rate GI/Abdominal Exam: Normal Bowel Sounds Skin: Warm, Dry Neurological: No New Focal Deficit Psy/Mental Status: Alert, Normal Affect - Problem List Review Problem List Initiated/Reviewed/Updated: Yes - Plan Plan:: Fever, chills, leukocytosis Secondary to urinary tract infection with sepsis POA due to E coli blood culture: e coli - sens to ceftriaxone urine culture: e coli Treat with Rocephin clinically better repeat BC today Discharge on oral antibiotics once repeat blood cultures are clear Anemia, severe In the setting of coronary artery disease with recent bypass, recent upper GI bleed Has known low ejection fraction 35% on 11/22 transfused 1 unit of PRBCs follow hemoglobin occult blood stool negative cont iron Anemia is likely secondary to anemia following bypass and acute blood loss from GI bleed Had colonoscopy (diverticulosis) and upper GI endoscopy (gastric ulcer, gastritis) 10/18 Well use high-dose proton pump inhibitor Diabetes Hold metformin Cont glyburide Treat with mealtime insulin and Lantus Use supplemental insulin as needed Coronary artery disease Continue aspirin Started metoprolol DVT prophylaxis with subcutaneous heparin
[2018-11-25] MEDS: NACL 0.9% EYERT SCH (15:08)
[2018-11-25] MEDS: [UNRECOGNIZED DRUG - OTHER] EYERT SCH (15:08)
[2018-11-25] MEDS: ATROPINE SULFATE EYERT SCH (15:08)
[2018-11-25] MEDS: Polyethylene Glycol 3350 Powder 17 GM Packet PO PRN (17:39)
[2018-11-25] MEDS: Latanoprost 0.005% Ophth Soln 2.5 ML Bottle EYERT SCH (21:31)
[2018-11-25] MEDS: Dorzolamide/Timolol 2%-0.5% Ophth Soln 10 ML Bottle EYERT SCH (21:36)
[2018-11-26] MEDS: Acetaminophen/oxyCODONE 325-5 MG Tab PO PRN ×2 (05:20→12:42)
[2018-11-26] MEDS: Pantoprazole 40 MG Tab.CR PO SCH (05:20)
[2018-11-26] MEDS: Heparin Sodium 5,000 Units/ML Vial SUBCUT SCH (05:22)
[2018-11-26] MEDS ORDERED: cefTRIAXone 1 GM in Sodium Chloride 0.9% 100 ML IV SCH (08:00)
[2018-11-26] MEDS: Insulin Lispro 100 Units/ML 3 ML Vial SUBCUT SCH ×2 (08:23→12:40)
[2018-11-26] MEDS: Insulin Glarg,Human.Rec.Analog 100 UNIT/ML ML SUBCUT SCH (09:15)
[2018-11-26] MEDS: Multivitamins, Therapeutic with Minerals Tab PO SCH (09:16)
[2018-11-26] MEDS: atorvaSTATin 20 MG Tab PO SCH (09:16)
[2018-11-26] MEDS: Gabapentin 300 MG Cap PO SCH (09:16)
[2018-11-26] MEDS: Brimonidine 0.15% Ophth Soln 5 ML Bottle EYERT SCH (09:16)
[2018-11-26] MEDS: Potassium Chloride 10 MEQ Tab.ER PO SCH (09:16)
[2018-11-26] MEDS: Aspirin 81 MG Tab.EC PO SCH (09:16)
[2018-11-26] MEDS: Iron Polysaccharides Complex 150 MG Cap PO SCH (09:16)
[2018-11-26] MEDS: Lisinopril 10 MG Tab PO SCH (09:16)
[2018-11-26] MEDS: Cholecalciferol (Vitamin D3) 25 MCG Tab PO SCH (09:17)
[2018-11-26] MEDS: Metoprolol Tartrate 25 MG Tab PO SCH (09:17)
[2018-11-26] MEDS: Dorzolamide/Timolol 2%-0.5% Ophth Soln 10 ML Bottle EYERT SCH (09:19)
[2018-11-26] MEDS: traMADol 50 MG Tab PO PRN (09:28)
[2018-11-26] MEDS: Sodium Chloride 0.9% 10 ML Syringe FLUSH PRN ×2 (09:33→10:05)
--- NOTE | 2018-11-26 10:28 | PCM.DCSUM1 ---
Discharge Summary - Hospital Course Free Text/Narrative:: 63-year-old lady with history of diabetes, coronary artery disease status post bypass surgery in September 2018, history of anemia, secondary to blood loss secondary to gastric ulcer. The patient presented the 3 days prior to this admission to the emergency room with complains of fever. No focal sign of infection was noted, she was discharged with a presumed viral infection and presented again and was found to have UTI with E coli bacteremia. her cultures cleared and she was transitioned to oral meds. she was discharged in stable condition. - Discharge Data Discharge Date: 11/26/18 Discharge Disposition: Home, Self-Care 01 Condition: Stable - Discharge Plan *PRESCRIPTION DRUG MONITORING PROGRAM REVIEWED*: Not Applicable *COPY OF PRESCRIPTION DRUG MONITORING REPORT IN PATIENT KALEB: Not Applicable Prescriptions/Med Rec: Ciprofloxacin HCl [Cipro] 500 mg PO BID #8 tablet Home Medications: Home Meds Aspirin [Lo-Dose Aspirin EC] 81 mg PO DAILY 02/17/16 [History] glyBURIDE [Glyburide] 10 mg PO BID 02/17/16 [History] metFORMIN [Glucophage] 1,000 mg PO BID 02/17/16 [History] Insulin Detemir [Levemir] 15 unit SQ QAM 01/23/17 [History] Cholecalciferol (Vitamin D3) [Vitamin D3] 1,000 units PO DAILY 09/25/18 [History ] Multivitamin-Min/Iron/FA/Vit K [Multi-Day Plus Minerals Tablet] 1 tab PO DAILY 09/25/18 [History] atorvaSTATin Calcium [Atorvastatin Calcium] 20 mg PO DAILY 11/11/18 [History] traMADol [Ultram] 50 mg PO Q6H PRN 11/11/18 [History] Benzonatate [Tessalon Perle] 100 mg PO TID PRN 11/22/18 [History] Brimonidine Tartrate 10 ml EYERT BID 11/22/18 [History] Dextrose [Glucose] 4 gm PO DAILY PRN 11/22/18 [History] Dorzolamide HCl/Timolol Maleat [Dorzolamide-Timolol Eye Drops] 10 ml EYERT BID 11/22/18 [History] Ferrous Sulfate 325 mg PO DAILY 11/22/18 [History] Furosemide 40 mg PO BID 11/22/18 [History] Insulin Aspart [NovoLOG] 5 unit SUBCUT TIDMEALS 11/22/18 [History] Lidocaine 1 patch TOP DAILY PRN 11/22/18 [History] Omeprazole 20 mg PO ACBREAKFAST 11/22/18 [History] Potassium Chloride 20 meq PO BIDMEALS 11/22/18 [History] Saxagliptin HCl [Onglyza] 5 mg PO DAILY 11/22/18 [History] oxyCODONE HCl/Acetaminophen [Oxycodone-Acetaminophen 5-325] 1 each PO BID PRN [History] Lisinopril [Prinivil] 10 mg PO DAILY 11/23/18 [History] Ciprofloxacin HCl [Cipro] 500 mg PO BID #8 tablet 11/26/18 [Rx] Dorzolamide/Timolol [Cosopt 2%-0.5% Ophth Soln] 0 ml EYERT BID bottle 11/26/18 [Rx] Latanoprost [Xalatan 0.005% Ophth Soln] 0 ml EYERT BEDTIME bottle 11/26/18 [Rx] Patient Handouts: Urinary Tract Infection, Adult, [id number], Ciprofloxacin tablets - Discharge Summary/Plan Comment DC Time >30 min.: Yes - General Info Date of Service: 11/26/18 Admission Dx/Problem (Free Text: Admission Diagnosis/Problem Admission Diagnosis/Problem UTI, Urinary tract infectious disease - Review of Systems General: Reports: No Symptoms HEENT: Reports: No Symptoms Pulmonary: Reports: No Symptoms Cardiovascular: Reports: No Symptoms Gastrointestinal: Reports: No Symptoms Genitourinary: Reports: No Symptoms Musculoskeletal: Reports: No Symptoms Skin: Reports: No Symptoms Neurological: Reports: No Symptoms Psychiatric: Reports: No Symptoms - Patient Data Vitals - Most Recent: Last Vital Signs Temp 36.8 C 11/26/18 08:41 Pulse 88 11/26/18 09:17 Resp 22 H 11/26/18 08:41 BP 135/54 L 11/26/18 09:17 Pulse Ox 100 11/26/18 08:00 Weight - Most Recent: 61.144 kg I&O - Last 24 hours: Intake & Output 11/25/18 11/26/18 11/26/18 22:59 06:59 14:59 Intake Total 2420 Output Total 850 1000 Balance 1570 -1000 Lab Results - Last 24 hrs: Laboratory Results - last 24 hr 0611/25/18 11/25/18 Range/Units 04:39 11:06 16:46 POC Glucose 322 H 176 H (70-105) mg/dl Crossmatch See Detail 11/25/18 11/26/18 Range/Units 20:48 07:50 POC Glucose 242 H 95 (70-105) mg/dl Crossmatch RONALD Results - Last 24 hrs: Microbiology 11/24/18 11:38 Aerobic Blood Culture - Preliminary Blood - Venous - Lab Draw NO GROWTH AFTER 1 DAY Anaerobic Blood Culture - Preliminary NO GROWTH AFTER 1 DAY 11/24/18 11:30 Aerobic Blood Culture - Preliminary Blood - Venous NO GROWTH AFTER 1 DAY Anaerobic Blood Culture - Preliminary NO GROWTH AFTER 1 DAY Med Orders - Current: Current Medications Acetaminophen (Tylenol) 650 mg PO Q4H PRN PRN Reason: Pain (Mild 1-3)/fever Last Admin: 11/23/18 10:02 Dose: 650 mg Aspirin (Halfprin) 81 mg PO DAILY [facility] Last Admin: 11/26/18 09:16 Dose: 81 mg Atorvastatin Calcium (Lipitor) 20 mg PO DAILY [facility] Last Admin: 11/26/18 09:16 Dose: 20 mg Brimonidine Tartrate (Alphagan P 0.15% Ophth Soln) 0 ml EYERT BID [facility] Last Admin: 11/26/18 09:16 Dose: 1 drop Cholecalciferol (Vitamin D3) 1,000 units PO DAILY [facility] Last Admin: 11/26/18 09:17 Dose: 1,000 units Docusate Sodium (Colace) 100 mg PO BID PRN PRN Reason: Constipation Dorzolamide/Timolol (Cosopt 2%-0.5% Ophth Soln) 0 ml EYERT BID [facility] Last Admin: 11/26/18 09:19 Dose: 1 drop Gabapentin (Neurontin) 600 mg PO TID [facility] Last Admin: 11/26/18 09:16 Dose: 600 mg Heparin Sodium (Porcine) (Heparin Sodium) 5,000 units SUBCUT Q8HR [facility] Last Admin: 11/26/18 05:22 Dose: 5,000 units Ceftriaxone Sodium 1 gm/ (Sodium Chloride) 100 mls @ 200 mls/hr IV Q24H [facility] Last Infusion: 11/26/18 10:06 Dose: Infused Insulin Glargine (Lantus) 10 unit SUBCUT QAM [facility] Last Admin: 11/26/18 09:15 Dose: 10 units Insulin Human Lispro (Humalog) 0 unit SUBCUT ACBED [facility]; Protocol Last Admin: 11/26/18 08:23 Dose: Not Given Latanoprost (Xalatan 0.005% Ophth Soln) 0 ml EYERT BEDTIME [facility] Last Admin: 11/25/18 21:31 Dose: 2 drop Lidocaine (Lidoderm 5%) 700 mg TOP DAILY PRN PRN Reason: back pain Last Admin: 11/26/18 09:18 Dose: 700 mg Lisinopril (Prinivil) 10 mg PO DAILY [facility] Last Admin: 11/26/18 09:16 Dose: 10 mg Metoprolol Tartrate (Lopressor) 25 mg PO BID@0900,2100 [facility] Last Admin: 11/26/18 09:17 Dose: 25 mg Miscellaneous Information (Remove Patch) 1 ea TRDERM DAILY PRN PRN Reason: patch removal Multivitamins/Minerals (Vitamins And Minerals) 1 tab PO DAILY [facility] Last Admin: 11/26/18 09:16 Dose: 1 tab Ondansetron HCl (Zofran Odt) 4 mg PO Q6H PRN PRN Reason: nausea, able to take PO Oxycodone/Acetaminophen (Percocet 325-5 Mg) 1 tab PO Q6HR PRN PRN Reason: Pain (moderate 4-6) Last Admin: 11/26/18 05:20 Dose: 1 tab Pantoprazole Sodium (Protonix) 40 mg PO BIDAC [facility] Last Admin: 11/26/18 05:20 Dose: 40 mg Polyethylene Glycol (Miralax) 17 gm PO DAILY PRN PRN Reason: Constipation Last Admin: 11/25/18 17:39 Dose: 17 gm Polysaccharide Iron Complex (Ferrex 150) 150 mg PO DAILY [facility] Last Admin: 11/26/18 09:16 Dose: 150 mg Potassium Chloride (Klor-Con 10) 20 meq PO BIDMEALS [facility] Last Admin: 11/26/18 09:16 Dose: 20 meq Sodium Chloride (Saline Flush) 10 ml FLUSH ASDIRECTED PRN PRN Reason: Keep Vein Open Last Admin: 11/26/18 10:05 Dose: 10 ml Tramadol HCl (Ultram) 50 mg PO Q6H PRN PRN Reason: Pain Last Admin: 11/26/18 09:28 Dose: 50 mg Zolpidem Tartrate (Ambien) 5 mg PO BEDTIME PRN PRN Reason: Sleep Last Admin: 11/25/18 23:14 Dose: 5 mg Discontinued Medications Acetaminophen (Tylenol) 650 mg PO NOW ONE Stop: 11/22/18 05:05 Last Admin: 11/22/18 05:11 Dose: 650 mg Dorzolamide/Timolol (Cosopt 2%-0.5% Ophth Soln) 0 ml EYERT BEDTIME [facility] Last Admin: 11/24/18 21:02 Dose: 1 drop Glyburide (Micronase) 10 mg PO BIDMEALS [facility] Last Admin: 11/24/18 09:03 Dose: 10 mg Sodium Chloride (Normal Saline) 1,000 mls @ 500 mls/hr IV .BOLUS ONE Stop: 11/22/18 06:39 Last Infusion: 11/22/18 08:07 Dose: Infused Ceftriaxone Sodium 1 gm/ (Sodium Chloride) 50 mls @ 50 mls/hr IV ONETIME ONE Stop: 11/22/18 06:45 Last Admin: 11/22/18 05:54 Dose: 50 mls/hr Ceftriaxone Sodium 1 gm/ (Sodium Chloride) 100 mls @ 200 mls/hr IV Q24H [facility] Last Admin: 11/22/18 22:12 Dose: Not Given Ceftriaxone Sodium 1 gm/ (Sodium Chloride) 100 mls @ 200 mls/hr IV Q24H [facility] Last Admin: 11/25/18 08:24 Dose: 200 mls/hr Insulin Glargine (Lantus) 15 unit SUBCUT QAM [facility] Last Admin: 11/24/18 09:48 Dose: Not Given Insulin Human Lispro (Humalog) 5 unit SUBCUT TIDMEALS [facility] Last Admin: 11/24/18 12:18 Dose: 5 unit Ketorolac Tromethamine (Toradol) 15 mg IVPUSH ONETIME ONE Stop: 11/22/18 04:41 Last Admin: 11/22/18 04:46 Dose: 15 mg Metoprolol Tartrate (Lopressor) 25 mg PO Q12H [facility] Last Admin: 11/24/18 12:22 Dose: 25 mg Non-Formulary Medication (Atropine Sulfate In 0.9% Nacl [Atropine 0.01%-Ns Eye Drops]) 1 drop EYERT BID [facility] Last Admin: 11/25/18 15:08 Dose: Not Given - Exam General: Reports: Alert, Oriented Lungs: Reports: Clear to Auscultation, Normal Respiratory Effort Cardiovascular: Reports: Regular Rate, Regular Rhythm GI/Abdominal Exam: Normal Bowel Sounds, Soft, Non-Tender Skin: Reports: Warm, Dry, Intact Neurological: Reports: No New Focal Deficit Psy/Mental Status: Reports: Alert, Normal Affect, Normal Mood
[2018-11-26 12:03] VITALS: BP 156/67
[2018-11-26] MEDS: Polyethylene Glycol 3350 Powder 17 GM Packet PO PRN (12:43)
[2018-11-26] MEDS ORDERED: Pantoprazole 40 MG Tab.CR PO SCH (16:00)
== END 2018-11-26 13:50 | disposition home or self-care (01) | DRG 872 ==
LOC: DL.ED 04:29 → UNDOADMIN 05:57 → DL.MS 05:57
PROVIDERS: ADMIT Internal Medicine; ATTEND Internal Medicine
PROC: 30233N1 Transfusion of Nonautologous Red Blood Cells into Peripheral Vein, Percutaneous Approach (ICD-10-PCS; principal; 2018-11-22)
DX: A41.51 Sepsis due to Escherichia coli [E. coli] (principal); N39.0 Urinary tract infection, site not specified; E11.9 Type 2 diabetes mellitus without complications; I25.10 Atherosclerotic heart disease of native coronary artery without angina pectoris; D64.9 Anemia, unspecified; E78.00 Pure hypercholesterolemia, unspecified; I10 Essential (primary) hypertension; J45.909 Unspecified asthma, uncomplicated; M19.90 Unspecified osteoarthritis, unspecified site; G89.29 Other chronic pain; M54.9 Dorsalgia, unspecified; Z90.89 Acquired absence of other organs; I25.2 Old myocardial infarction; Z95.1 Presence of aortocoronary bypass graft; Z90.49 Acquired absence of other specified parts of digestive tract; Z87.891 Personal history of nicotine dependence; Z79.82 Long term (current) use of aspirin; Z79.84 Long term (current) use of oral hypoglycemic drugs
CPT/HCPCS: 36415; 36430; 80048; 80053; 81001; 82272; 82962; 83605; 84484; 85025; 86850; 86900; 86901; 86920; 86922; 87040; 87077; 87086; 87088; 87186; 87804; 93005; 96361; 96374; 96375; 99284-25; A9270-GY; J0696; J1644; J1815; J1815-GY; J1885; J7030; J7050; P9016

== ENCOUNTER 2022-08-30 05:41 | Emergency (ER) | payer MEDICARE, MEDICAID ==
[2022-08-30] MEDS ORDERED: cloNIDine 0.1 MG Tab PO ONE (06:01)
[2022-08-30 06:09] VITALS: PULSE 60
[2022-08-30 06:24] VITALS: BP 217/72
[2022-08-30] MEDS ORDERED: Labetalol 20 MG/4 ML Syringe IVPUSH ONE (06:47)
== END 2022-08-30 07:40 | disposition home or self-care (01) ==
LOC: DL.ED 05:41
DX: I16.0 Hypertensive urgency (principal); I10 Essential (primary) hypertension; E78.00 Pure hypercholesterolemia, unspecified; I25.2 Old myocardial infarction; E11.9 Type 2 diabetes mellitus without complications; Z79.899 Other long term (current) drug therapy; Z79.4 Long term (current) use of insulin
CPT/HCPCS: 96374; 99283; 99284-25; A9270-GY; J3490

== ENCOUNTER 2022-10-06 21:32 | Emergency (ER) | payer MEDICARE, MEDICAID ==
[2022-10-06] MEDS ORDERED: Sodium Chloride 0.9% 10 ML Syringe FLUSH PRN (22:31)
[2022-10-06 22:36] VITALS: PULSE 58
[2022-10-06 22:50] LABS: BASOPHILS PERCENT AUTO 0.1 % (0.0-1.0); HEMATOCRIT 29.4 % (37.0-47.0); LYMPHOCYTES PERCENT AUTO 27.8 % (20.5-50.1); MEAN CORPUSCULAR VOLUME 82.4 fL (80-100); MONOCYTES PERCENT AUTO 7.7 % (2-8); NEUTROPHILS PERCENT AUTO 60.4 % (42.2-75.2); PLATELET COUNT,PLT 247 10^3/uL (150-450); RED BLOOD CELL COUNT 3.57 10^6/uL (4.2-5.4); WHITE BLOOD CELL COUNT,WBC 7.6 10^3/uL (5.0-10.0)
[2022-10-06] MEDS ORDERED: Doxazosin 2 MG Tab PO ONE (22:57)
[2022-10-06 23:11] LABS: ALBUMIN 2.8 g/dL (3.4-5.0); BILIRUBIN TOTAL 0.3 mg/dL (0.2-1.0); CALCIUM 7.9 mg/dL (8.5-10.1); CREATININE 3.12 mg/dL (0.55-1.02); EST CRCL DRUG DOSING (CG) 12.57 mL/min; MAGNESIUM 1.5 mg/dL (1.8-2.4); PROTEIN TOTAL,TP 6.8 g/dL (6.4-8.2)
[2022-10-06 23:17] LABS: A/G RATIO 0.7
[2022-10-06 23:24] VITALS: BP 211/64
[2022-10-06] MEDS ORDERED: Sodium Chloride 0.9% 500 ML IV SCH (23:45)
[2022-10-06] MEDS ORDERED: Sodium Chloride 0.9% 1,000 ML IV ONE (23:55)
[2022-10-07] MEDS ORDERED: Potassium Chloride 10% 20 MEQ/15 ML Soln 15 ML UD Cup ONE (00:06)
[2022-10-07 00:13] LABS: APPEARANCE,URINE CLEAR (CLEAR); BILIRUBIN,URINE NEGATIVE (NEGATIVE); COLOR,URINE YELLOW (YELLOW); GLUCOSE,URINE NEGATIVE (NEGATIVE); KETONES,URINE NEGATIVE (NEGATIVE); LEUKOCYTE ESTERASE,URINE NEGATIVE (NEGATIVE); NITRITE,URINE NEGATIVE (NEGATIVE); OCCULT BLOOD,URINE NEGATIVE (NEGATIVE); PROTEIN,URINE >=300 (NEGATIVE); UROBILINOGEN,URINE 0.2 mg/dL (0.2-1.0)
[2022-10-07 00:28] LABS: BACTERIA,URINE RARE /HPF (0-FEW/HPF); EPITHELIAL CELLS,URINE OCCASIONAL /HPF (NOT SEEN); RBC,URINE 0-5 /HPF (0-5); WBC,URINE NOT SEEN /HPF (0-5/HPF)
[2022-10-07] MEDS ORDERED: Potassium Chloride 10% 20 MEQ/15 ML Soln 15 ML UD Cup PO ONE (23:36)
== END 2022-10-07 01:17 | disposition home or self-care (01) ==
LOC: DL.ED 21:32
DX: I12.9 Hypertensive chronic kidney disease with stage 1 through stage 4 chronic kidney disease, or unspecified chronic kidney disease (principal); E11.22 Type 2 diabetes mellitus with diabetic chronic kidney disease; N18.9 Chronic kidney disease, unspecified; E87.6 Hypokalemia; E78.00 Pure hypercholesterolemia, unspecified; I25.2 Old myocardial infarction; J45.909 Unspecified asthma, uncomplicated; Z79.82 Long term (current) use of aspirin; Z79.4 Long term (current) use of insulin; Z79.899 Other long term (current) drug therapy
CPT/HCPCS: 36415; 80053; 81001; 83735; 85025; 96360; 99283; A9270; J7040; 99284; J3490

== ENCOUNTER 2022-11-24 16:26 | Inpatient (IN) | payer MEDICARE, MEDICAID ==
[2022-11-24 17:08] LABS: BASOPHILS PERCENT AUTO 0.3 % (0.0-1.0); EOSINOPHILS PERCENT AUTO 3.2 % (1.0-3.0); HEMATOCRIT 23.1 % (37.0-47.0); HEMOGLOBIN 7.4 g/dL (12.0-16.0); LYMPHOCYTES PERCENT AUTO 18.5 % (20.5-50.1); MEAN CORPUSCULAR HEMOGLOBIN 29.5 pg (27.0-34.0); MONOCYTES PERCENT AUTO 13.6 % (2-8); NEUTROPHILS PERCENT AUTO 64.4 % (42.2-75.2); PLATELET COUNT,PLT 210 10^3/uL (150-450); RED BLOOD CELL COUNT 2.51 10^6/uL (4.2-5.4); WHITE BLOOD CELL COUNT,WBC 6.9 10^3/uL (5.0-10.0)
[2022-11-24 17:22] LABS: PROTHROMBIN TIME 10.2 SEC (9.0-12.0)
[2022-11-24 17:27] LABS: ALBUMIN 3.3 g/dL (3.4-5.0); ANION GAP 16.8 mEq/L (7-13); BILIRUBIN TOTAL 0.3 mg/dL (0.2-1.0); BUN/CREATININE RATIO 13.2 (No establ ref range); C-REACTIVE PROTEIN 0.3 mg/dL (0.0-0.9); CALCIUM 7.7 mg/dL (8.5-10.1); CREATININE 4.92 mg/dL (0.55-1.02); EST CRCL DRUG DOSING (CG) 7.97 mL/min; MAGNESIUM 2.2 mg/dL (1.8-2.4); POTASSIUM,K 3.8 mmol/L (3.5-5.1); PROTEIN TOTAL,TP 7.4 g/dL (6.4-8.2)
[2022-11-24 17:28] LABS: A/G RATIO 0.8
[2022-11-24] MEDS ORDERED: Bumetanide 1 MG/4 ML MDV IVPUSH ONE (18:05)
[2022-11-24] MEDS ORDERED: Acetaminophen/oxyCODONE 325-5 MG Tab PO PRN (18:30)
[2022-11-24] MEDS ORDERED: Acetaminophen 325 MG Tab PO PRN (18:30)
[2022-11-24] MEDS ORDERED: Magnesium Hydroxide 400 MG/5 ML Susp 30 ML Cup PO PRN (18:30)
[2022-11-24] MEDS ORDERED: Sennosides/Docusate Sodium 50-8.6 MG Tab PO PRN (18:30)
[2022-11-24] MEDS ORDERED: Polyethylene Glycol 3350 Powder 17 GM Packet PO PRN (18:30)
[2022-11-24] MEDS ORDERED: Albuterol/Ipratropium 3.0-0.5 MG/3 ML Neb Soln NEB PRN (18:30)
[2022-11-24] MEDS ORDERED: Ondansetron 4 MG/2 ML SDV IVPUSH PRN (18:30)
[2022-11-24] MEDS ORDERED: HYDROmorphone 0.5 MG/0.5 ML Syringe IVPUSH PRN (18:30)
[2022-11-24] MEDS ORDERED: 50% Dextrose in Water 50 ML Syringe IVPUSH PRN (18:37)
[2022-11-24] MEDS ORDERED: Glucagon,Human Recombinant 1 MG Vial IM PRN (18:37)
[2022-11-24] MEDS ORDERED: Metoprolol Tartrate 5 MG/5 ML SDV IVPUSH PRN (18:38)
[2022-11-24] MEDS ORDERED: hydrALAZINE 20 MG/ML SDV IVPUSH PRN (18:38)
[2022-11-24] MEDS ORDERED: traMADol 50 MG Tab PO SCH (19:15)
[2022-11-24] MEDS: Sodium Chloride 0.9% 10 ML Syringe FLUSH SCH (20:49)
[2022-11-24] MEDS: Gabapentin 300 MG Cap PO SCH (20:49)
[2022-11-24] MEDS: Insulin Glarg,Human.Rec.Analog 100 Unit/ML SUBCUT SCH (20:49)
[2022-11-24 20:58] LABS: APPEARANCE,URINE CLEAR (CLEAR); BILIRUBIN,URINE NEGATIVE (NEGATIVE); COLOR,URINE YELLOW (YELLOW); GLUCOSE,URINE NEGATIVE (NEGATIVE); KETONES,URINE NEGATIVE (NEGATIVE); LEUKOCYTE ESTERASE,URINE TRACE (NEGATIVE); NITRITE,URINE NEGATIVE (NEGATIVE); OCCULT BLOOD,URINE NEGATIVE (NEGATIVE); PROTEIN,URINE >=300 (NEGATIVE); UROBILINOGEN,URINE 0.2 mg/dL (0.2-1.0)
[2022-11-24 21:10] LABS: BACTERIA,URINE RARE /HPF (0-FEW/HPF); EPITHELIAL CELLS,URINE FEW /HPF (NOT SEEN); RBC,URINE 0-5 /HPF (0-5); WBC,URINE 0-5 /HPF (0-5/HPF)
[2022-11-24] MEDS ORDERED: Lactated Ringers 1,000 ML IV SCH (22:45)
[2022-11-25 06:30] LABS: BASOPHILS PERCENT AUTO 0.5 % (0.0-1.0); EOSINOPHILS PERCENT AUTO 4.3 % (1.0-3.0); LYMPHOCYTES PERCENT AUTO 21.4 % (20.5-50.1); MEAN CORPUSCULAR HEMOGLOBIN 29.2 pg (27.0-34.0); MEAN CORPUSCULAR HGB CONC 31.3 g/dL (33.0-35.0); MEAN CORPUSCULAR VOLUME 93.1 fL (80-100); MONOCYTES PERCENT AUTO 14.4 % (2-8); NEUTROPHILS PERCENT AUTO 59.4 % (42.2-75.2); PLATELET COUNT,PLT 185 10^3/uL (150-450); RED BLOOD CELL COUNT 2.16 10^6/uL (4.2-5.4); WHITE BLOOD CELL COUNT,WBC 6.1 10^3/uL (5.0-10.0)
[2022-11-25 06:31] LABS: HEMOGLOBIN 6.3 g/dL (12.0-16.0)
[2022-11-25 06:32] LABS: HEMATOCRIT 20.1 % (37.0-47.0)
[2022-11-25 06:45] LABS: ALBUMIN 2.7 g/dL (3.4-5.0); BILIRUBIN TOTAL 0.2 mg/dL (0.2-1.0); CALCIUM 7.4 mg/dL (8.5-10.1); CREATININE 5.16 mg/dL (0.55-1.02); EST CRCL DRUG DOSING (CG) 7.6 mL/min; MAGNESIUM 2.1 mg/dL (1.8-2.4); PHOSPHORUS 7.1 mg/dL (2.6-4.7); PROTEIN TOTAL,TP 6.3 g/dL (6.4-8.2)
[2022-11-25 06:50] LABS: A/G RATIO 0.75
[2022-11-25] MEDS ORDERED: Acetaminophen 325 MG Tab PO ONE (07:24)
[2022-11-25] MEDS ORDERED: diphenhydrAMINE 50 MG/ML SDV IV ONE (07:24)
[2022-11-25] MEDS ORDERED: Dexamethasone 4 MG/ML SDV IVPUSH ONE (07:24)
[2022-11-25] MEDS ORDERED: Bumetanide 1 MG/4 ML MDV IVPUSH ONE ×2 (07:25→11:30)
[2022-11-25] MEDS ORDERED: Pneumococcal Polyvalent-23 Vaccine 0.5 ML SDV IM ONE (10:00)
[2022-11-25] MEDS: traMADol 50 MG Tab PO PRN ×2 (10:08→19:55)
[2022-11-25] MEDS: Insulin Lispro 100 Units/ML 3 ML Vial SUBCUT SCH ×3 (10:09→18:58)
[2022-11-25] MEDS: Gabapentin 300 MG Cap PO SCH ×2 (10:09→14:23)
[2022-11-25] MEDS: Insulin Glarg,Human.Rec.Analog 100 Unit/ML SUBCUT SCH (10:11)
[2022-11-25] MEDS: Sodium Chloride 0.9% 10 ML Syringe FLUSH SCH (10:16)
[2022-11-25] MEDS: Sodium Chloride 0.9% 10 ML Syringe FLUSH PRN ×2 (14:23→14:33)
[2022-11-25] MEDS ORDERED: cloNIDine 0.1 MG Tab PO ONE (16:12)
[2022-11-25] MEDS ORDERED: Isosorbide Mononitrate 60 MG Tab.ER PO ONE (16:16)
[2022-11-25 20:31] VITALS: BP 168/54; PULSE 73
== END 2022-11-25 20:05 | DRG 641 ==
LOC: DL.ED 16:26 → DL.MS 18:17
PROVIDERS: ADMIT Internal Medicine; ATTEND Internal Medicine
DX: E87.70 Fluid overload, unspecified (principal); J90 Pleural effusion, not elsewhere classified; I13.0 Hypertensive heart and chronic kidney disease with heart failure and stage 1 through stage 4 chronic kidney disease, or unspecified chronic kidney disease; H54.7 Unspecified visual loss; H54.40 Blindness, one eye, unspecified eye; E78.5 Hyperlipidemia, unspecified; I25.10 Atherosclerotic heart disease of native coronary artery without angina pectoris; J45.909 Unspecified asthma, uncomplicated; M19.90 Unspecified osteoarthritis, unspecified site; G89.29 Other chronic pain; M54.9 Dorsalgia, unspecified; I13.2 Hypertensive heart and chronic kidney disease with heart failure and with stage 5 chronic kidney disease, or end stage renal disease; D50.9 Iron deficiency anemia, unspecified; D63.1 Anemia in chronic kidney disease; E87.1 Hypo-osmolality and hyponatremia; E11.65 Type 2 diabetes mellitus with hyperglycemia; E83.51 Hypocalcemia; Z98.890 Other specified postprocedural states; I25.2 Old myocardial infarction; E11.22 Type 2 diabetes mellitus with diabetic chronic kidney disease; N18.5 Chronic kidney disease, stage 5; I50.9 Heart failure, unspecified; N17.9 Acute kidney failure, unspecified; Z90.49 Acquired absence of other specified parts of digestive tract; E78.00 Pure hypercholesterolemia, unspecified; Z79.82 Long term (current) use of aspirin; Z79.4 Long term (current) use of insulin; Z79.899 Other long term (current) drug therapy; Z95.1 Presence of aortocoronary bypass graft
CPT/HCPCS: 36415; 36430; 71046; 80053; 81001; 82272; 82947; 83605; 83735; 83880; 84100; 85025; 85610; 86140; 86850; 86900; 86901; 86920; 86922; 94660; 99285; A9270-GY; J0360; J1100; J1170; J1200; J1815-GY; J3490; J7120; P9016

== ENCOUNTER 2023-06-17 23:22 | Emergency (ER) | payer MEDICARE, MEDICAID ==
[2023-06-18 00:57] LABS: LACTIC ACID 0.7 mmol/L (0.4-2.0)
[2023-06-18] MEDS: fentaNYL 100 MCG/2 ML SDV IVPUSH ONE ×3 (01:01→06:06)
[2023-06-18] MEDS: Ondansetron 4 MG/2 ML SDV IVPUSH ONE ×2 (01:01→11:01)
[2023-06-18 01:04] LABS: ALBUMIN 3.3 g/dL (3.4-5.0); ANION GAP 27.5 mEq/L (7-13); BILIRUBIN TOTAL 0.3 mg/dL (0.2-1.0); BUN/CREATININE RATIO 10.4 (No establ ref range); CALCIUM 7.6 mg/dL (8.5-10.1); CREATININE 11.49 mg/dL (0.55-1.02); EST CRCL DRUG DOSING (CG) 3.41 mL/min; POTASSIUM,K 5.5 mmol/L (3.5-5.1); PROTEIN TOTAL,TP 7.7 g/dL (6.4-8.2)
[2023-06-18 01:08] LABS: A/G RATIO 0.75; PHOSPHORUS 10.6 mg/dL (2.6-4.7)
[2023-06-18] MEDS: Benzocaine 20% Topical Spray UD MUCMEM ONE (01:51)
[2023-06-18] MEDS: Morphine 4 MG/ML Syringe IVPUSH ONE ×2 (11:01→13:55)
[2023-06-18 11:32] VITALS: PULSE 68
[2023-06-18 13:05] LABS: BASOPHILS PERCENT AUTO 0.1 % (0.0-1.0); EOSINOPHILS PERCENT AUTO 0.1 % (1.0-3.0); HEMOGLOBIN 10.8 g/dL (12.0-16.0); LYMPHOCYTES PERCENT AUTO 4.7 % (20.5-50.1); MEAN CORPUSCULAR HEMOGLOBIN 30.2 pg (27.0-34.0); MEAN CORPUSCULAR HGB CONC 33.8 g/dL (33.0-35.0); MEAN CORPUSCULAR VOLUME 89.4 fL (80-100); MONOCYTES PERCENT AUTO 4.6 % (2-8); NEUTROPHILS PERCENT AUTO 90.5 % (42.2-75.2); PLATELET COUNT,PLT 268 10^3/uL (150-450); RED BLOOD CELL COUNT 3.58 10^6/uL (4.2-5.4); WHITE BLOOD CELL COUNT,WBC 18.7 10^3/uL (5.0-10.0)
[2023-06-18 13:19] VITALS: BP 135/69
[2023-06-18] MEDS: Lactated Ringers 1,000 ML IV ONE (13:33)
[2023-06-18] MEDS: Piperacillin/Tazobactam 3.375 GM in Sodium Chloride 0.9% 100 ML IV ONE (13:36)
== END 2023-06-18 14:00 | disposition critical access hospital (66) ==
LOC: DL.ED 23:22
DX: K56.609 Unspecified intestinal obstruction, unspecified as to partial versus complete obstruction (principal); E78.00 Pure hypercholesterolemia, unspecified; I10 Essential (primary) hypertension; I25.2 Old myocardial infarction; J45.909 Unspecified asthma, uncomplicated; E11.9 Type 2 diabetes mellitus without complications; Z79.82 Long term (current) use of aspirin; Z79.4 Long term (current) use of insulin; Z79.899 Other long term (current) drug therapy
CPT/HCPCS: 36415; 43752; 71045; 74019; 74176; 80053; 83605; 83735; 84100; 85025; 96365; 96375; 96376; 99284; 99285-25; A9270-GY; J2270; J2405; J2543; J3010; J3490; J7120

== ENCOUNTER 2024-10-04 17:02 | Emergency (ER) | payer MEDICARE, MEDICAID ==
[2024-10-04 17:21] LABS: O2 DELIVERY DEVICE ROOM AIR
[2024-10-04 17:23] LABS: BASOPHILS PERCENT AUTO 0.2 % (0.0-1.0); EOSINOPHILS PERCENT AUTO 1.5 % (1.0-3.0); HEMATOCRIT 30.7 % (37.0-47.0); HEMOGLOBIN 10.4 g/dL (12.0-16.0); LYMPHOCYTES PERCENT AUTO 6.8 % (20.5-50.1); MEAN CORPUSCULAR HEMOGLOBIN 30.5 pg (27.0-34.0); MEAN CORPUSCULAR HGB CONC 33.9 g/dL (33.0-35.0); NEUTROPHILS PERCENT AUTO 84.5 % (42.2-75.2); PLATELET COUNT,PLT 248 10^3/uL (150-450); RED BLOOD CELL COUNT 3.41 10^6/uL (4.2-5.4); WHITE BLOOD CELL COUNT,WBC 10.9 10^3/uL (5.0-10.0)
[2024-10-04 17:32] LABS: BASE EXCESS VENOUS -2.3 mmol/l ((-2)-(+3)); BICARBONATE,VENOUS 24 mmol/l (19-25); O2 SATURATION VENOUS 55.6 % (60-80); PCO2 VENOUS 51 mmHg (41-51); PH,VENOUS 7.29 (7.31-7.41); PO2 VENOUS 38 mmHg (35-42)
[2024-10-04 17:43] LABS: LACTIC ACID 1.9 mmol/L (0.4-2.0)
[2024-10-04] MEDS: Albuterol/Ipratropium 3.0-0.5 MG/3 ML Neb Soln NEB ONE (17:51)
[2024-10-04] MEDS: 50% Dextrose in Water 50 ML Syringe ONE (17:51)
[2024-10-04] MEDS: 50% Dextrose in Water 50 ML Syringe IVPUSH ONE (17:51)
[2024-10-04 17:52] LABS: ALANINE AMINOTRANSFERASE,ALT 19 U/L (14-59); ALBUMIN 2.6 g/dL (3.4-5.0); ALKALINE PHOSPHATASE 206 U/L (46-116); ANION GAP 13.5 mEq/L (7-13); ASPARTATE AMNIOTRANSFERASE,AST 31 U/L (15-37); BILIRUBIN TOTAL 0.6 mg/dL (0.2-1.0); BLOOD UREA NITROGEN,BUN 38 mg/dL (7-18); BUN/CREATININE RATIO 10.4 (No establ ref range); CALCIUM 7.9 mg/dL (8.5-10.1); CARBON DIOXIDE,CO2 24 mmol/L (21-32); CHLORIDE,CL 93 mmol/L (98-107); CREATININE 3.67 mg/dL (0.55-1.02); EST CRCL DRUG DOSING (CG) 12.49 mL/min; GLUCOSE RANDOM 164 mg/dL (70-99); MAGNESIUM 1.5 mg/dL (1.8-2.4); POTASSIUM,K 3.5 mmol/L (3.5-5.1); PROTEIN TOTAL,TP 6.7 g/dL (6.4-8.2); SODIUM,NA 127 mmol/L (136-145)
[2024-10-04 17:55] LABS: A/G RATIO 0.63; ESTIMATED GFR 13 mL/min (>=60); ETHANOL BLOOD MEDICAL < 3 mg/dL (0)
[2024-10-04 18:04] LABS: HEMOGLOBIN A1C 5.5 % (<5.7)
[2024-10-04 18:18] LABS: AMPHETAMINES,URINE NEGATIVE (NEGATIVE); BARBITURATES,URINE NEGATIVE (NEGATIVE); BENZODIAZEPINE,URINE NEGATIVE (NEGATIVE); MDMA (ECSTASY), URINE NEGATIVE (NEGATIVE); METHADONE,URINE NEGATIVE (NEGATIVE); METHAMPHETAMINES,URINE NEGATIVE (NEGATIVE); OPIATES,URINE NEGATIVE (NEGATIVE); OXYCODONE,URINE NEGATIVE (NEGATIVE); PHENCYCLIDINE,URINE NEGATIVE (NEGATIVE); TCA,URINE NEGATIVE (NEGATIVE)
[2024-10-04 20:29] VITALS: BP 164/116; PULSE 72
== END 2024-10-04 20:25 | disposition home or self-care (01) ==
LOC: DL.ED 17:02
DX: E11.649 Type 2 diabetes mellitus with hypoglycemia without coma (principal); I11.0 Hypertensive heart disease with heart failure; I25.10 Atherosclerotic heart disease of native coronary artery without angina pectoris; I50.9 Heart failure, unspecified; E78.00 Pure hypercholesterolemia, unspecified; M19.90 Unspecified osteoarthritis, unspecified site; Z99.2 Dependence on renal dialysis; Z79.899 Other long term (current) drug therapy; Z79.4 Long term (current) use of insulin; Z79.02 Long term (current) use of antithrombotics/antiplatelets; Z79.84 Long term (current) use of oral hypoglycemic drugs; Z90.49 Acquired absence of other specified parts of digestive tract
CPT/HCPCS: 36415; 71045; 80053; 80305; 80307; 82803; 82947; 83036; 83605; 83735; 84484; 85025; 96374; 99285; A9270

== ENCOUNTER 2024-12-24 11:53 | Emergency (ER) | payer MEDICARE, MEDICAID ==
[2024-12-24 12:09] LABS: BASOPHILS PERCENT AUTO 0.3 % (0.0-1.0); EOSINOPHILS PERCENT AUTO 3.0 % (1.0-3.0); LYMPHOCYTES PERCENT AUTO 11.8 % (20.5-50.1); MONOCYTES PERCENT AUTO 7.1 % (2-8); NEUTROPHILS PERCENT AUTO 77.8 % (42.2-75.2); PLATELET COUNT,PLT 224 10^3/uL (150-450); RED BLOOD CELL COUNT 3.93 10^6/uL (4.2-5.4); WHITE BLOOD CELL COUNT,WBC 9.9 10^3/uL (5.0-10.0)
[2024-12-24 12:31] LABS: ALANINE AMINOTRANSFERASE,ALT 23.0 U/L (14-59); ASPARTATE AMNIOTRANSFERASE,AST 41.0 U/L (15-37); BILIRUBIN TOTAL 0.8 mg/dL (0.2-1.0); BLOOD UREA NITROGEN,BUN 25.0 mg/dL (7-18); CARBON DIOXIDE,CO2 28.0 mmol/L (21-32); CHLORIDE,CL 89.0 mmol/L (98-107); CREATININE 2.89 mg/dL (0.55-1.02); EST CRCL DRUG DOSING (CG) 13.2 mL/min; GLUCOSE RANDOM 97.0 mg/dL (70-99); LACTIC ACID 0.6 mmol/L (0.4-2.0); POTASSIUM,K 4.1 mmol/L (3.5-5.1); PROTEIN TOTAL,TP 7.2 g/dL (6.4-8.2); SODIUM,NA 124.0 mmol/L (136-145)
[2024-12-24 12:32] LABS: A/G RATIO 0.6; ESTIMATED GFR 17.0 mL/min (>=60)
[2024-12-24 14:12] VITALS: BP 133/52; PULSE 53
== END 2024-12-24 14:00 | disposition left against medical advice (07) ==
LOC: DL.ED 11:53
DX: J40 Bronchitis, not specified as acute or chronic (principal); I25.10 Atherosclerotic heart disease of native coronary artery without angina pectoris; E78.00 Pure hypercholesterolemia, unspecified; I25.2 Old myocardial infarction; E11.22 Type 2 diabetes mellitus with diabetic chronic kidney disease; I12.0 Hypertensive chronic kidney disease with stage 5 chronic kidney disease or end stage renal disease; N18.6 End stage renal disease; Z79.82 Long term (current) use of aspirin; Z79.899 Other long term (current) drug therapy; Z79.4 Long term (current) use of insulin; Z79.84 Long term (current) use of oral hypoglycemic drugs; Z95.5 Presence of coronary angioplasty implant and graft; Z90.49 Acquired absence of other specified parts of digestive tract
CPT/HCPCS: 36415; 71045; 80053; 82947; 83605; 84484; 85025; 93005; 99285

== ENCOUNTER 2025-01-22 03:19 | Emergency (ER) | payer MEDICARE, MEDICAID ==
[2025-01-22] MEDS ORDERED: Sodium Chloride 0.9% 10 ML Syringe FLUSH PRN (03:35)
[2025-01-22] MEDS: Ondansetron 4 MG/2 ML SDV IVPUSH ONE (03:49)
[2025-01-22 03:51] LABS: BASOPHILS PERCENT AUTO 0.1 % (0.0-1.0); EOSINOPHILS PERCENT AUTO 1.2 % (1.0-3.0); LYMPHOCYTES PERCENT AUTO 12.4 % (20.5-50.1); MONOCYTES PERCENT AUTO 9.4 % (2-8); NEUTROPHILS PERCENT AUTO 76.9 % (42.2-75.2); PLATELET COUNT,PLT 128 10^3/uL (150-450); RED BLOOD CELL COUNT 3.99 10^6/uL (4.2-5.4); WHITE BLOOD CELL COUNT,WBC 8.4 10^3/uL (5.0-10.0)
[2025-01-22] MEDS: fentaNYL 100 MCG/2 ML SDV IVPUSH ONE ×2 (03:51→04:31)
[2025-01-22 04:14] LABS: ALANINE AMINOTRANSFERASE,ALT 22 U/L (14-59); ASPARTATE AMNIOTRANSFERASE,AST 35 U/L (15-37); BILIRUBIN TOTAL 0.9 mg/dL (0.2-1.0); BLOOD UREA NITROGEN,BUN 24 mg/dL (7-18); CARBON DIOXIDE,CO2 27 mmol/L (21-32); CHLORIDE,CL 93 mmol/L (98-107); CREATININE 3.11 mg/dL (0.55-1.02); GLUCOSE RANDOM 103 mg/dL (70-99); POTASSIUM,K 4.1 mmol/L (3.5-5.1); PROTEIN TOTAL,TP 7.3 g/dL (6.4-8.2); SODIUM,NA 130 mmol/L (136-145)
[2025-01-22 04:19] LABS: A/G RATIO 0.70; ESTIMATED GFR 16 mL/min (>=60)
[2025-01-22] MEDS: Iopamidol 755 Mg/ML 100 ML Bottle IVPUSH ONE (05:35)
[2025-01-22] MEDS: Lidocaine 1% with EPINEPHrine 1:100,000 20 ML MDV INJECT ONE (06:16)
[2025-01-22] MEDS: Furosemide 100 MG/10 ML SDV IVPUSH ONE (07:21)
[2025-01-22] MEDS: Heparin Sodium 5,000 Units/ML Vial IVPUSH ONE (08:15)
[2025-01-22] MEDS: Heparin Sodium/0.45% NaCl 25,000 UNITS/500 ML BAG IV SCH (08:19)
[2025-01-22 10:11] VITALS: BP 159/65; PULSE 75
== END 2025-01-22 10:03 ==
LOC: DL.ED 03:19
DX: I11.0 Hypertensive heart disease with heart failure (principal); I50.9 Heart failure, unspecified; I25.10 Atherosclerotic heart disease of native coronary artery without angina pectoris; I25.2 Old myocardial infarction; J45.909 Unspecified asthma, uncomplicated; E11.9 Type 2 diabetes mellitus without complications; Z95.1 Presence of aortocoronary bypass graft; Z90.49 Acquired absence of other specified parts of digestive tract; Z79.899 Other long term (current) drug therapy; Z79.82 Long term (current) use of aspirin; Z79.4 Long term (current) use of insulin
CPT/HCPCS: 36415; 64400; 71045; 71275; 80053; 83735; 83880; 84484; 85025; 85379; 85730; 93005; 93010; 96365; 96366; 96375; 96376; 99285; A9270; J1644; J1938; J2004; J2270; J2405; J3010; Q9967

== ENCOUNTER 2025-02-06 06:48 | Emergency (ER) | payer MEDICAID, MEDICARE ==
[2025-02-06 07:07] LABS: BASOPHILS PERCENT AUTO 0.3 % (0.0-1.0); EOSINOPHILS PERCENT AUTO 6.1 % (1.0-3.0); LYMPHOCYTES PERCENT AUTO 11.8 % (20.5-50.1); MONOCYTES PERCENT AUTO 10.1 % (2-8); NEUTROPHILS PERCENT AUTO 71.7 % (42.2-75.2); PLATELET COUNT,PLT 185 10^3/uL (150-450); RED BLOOD CELL COUNT 3.44 10^6/uL (4.2-5.4); WHITE BLOOD CELL COUNT,WBC 11.3 10^3/uL (5.0-10.0)
[2025-02-06 07:27] LABS: B-TYPE NATRIURETIC PEPTIDE,BNP 2760.0 pg/ml (0-100)
[2025-02-06 07:31] LABS: ALANINE AMINOTRANSFERASE,ALT 24.0 U/L (14-59); ASPARTATE AMNIOTRANSFERASE,AST 42.0 U/L (15-37); BILIRUBIN TOTAL 0.7 mg/dL (0.2-1.0); BLOOD UREA NITROGEN,BUN 32.0 mg/dL (7-18); CARBON DIOXIDE,CO2 26.0 mmol/L (21-32); CREATININE 3.78 mg/dL (0.55-1.02); EST CRCL DRUG DOSING (CG) 10.09 mL/min; GLUCOSE RANDOM 95.0 mg/dL (70-99); PROTEIN TOTAL,TP 7.1 g/dL (6.4-8.2)
[2025-02-06 07:35] LABS: A/G RATIO 0.58; ESTIMATED GFR 12.0 mL/min (>=60)
[2025-02-06 07:36] LABS: CHLORIDE,CL 93.0 mmol/L (98-107); POTASSIUM,K 4.6 mmol/L (3.5-5.1); SODIUM,NA 129.0 mmol/L (136-145)
[2025-02-06] MEDS: Furosemide 40 MG/4 ML VIAL IVPUSH ONE (07:52)
[2025-02-06] MEDS: fentaNYL 100 MCG/2 ML SDV IVPUSH ONE (07:52)
[2025-02-06] MEDS: Heparin Sodium/0.45% NaCl 25,000 UNITS/500 ML BAG IV SCH (08:40)
[2025-02-06] MEDS: Heparin Sodium 5,000 Units/ML Vial IVPUSH ONE (08:44)
[2025-02-06 09:17] VITALS: BP 147/56; PULSE 89
== END 2025-02-06 09:06 ==
LOC: DL.ED 06:48
DX: I25.9 Chronic ischemic heart disease, unspecified (principal); I10 Essential (primary) hypertension; I25.10 Atherosclerotic heart disease of native coronary artery without angina pectoris; E78.00 Pure hypercholesterolemia, unspecified; J45.909 Unspecified asthma, uncomplicated; E11.9 Type 2 diabetes mellitus without complications; Z95.1 Presence of aortocoronary bypass graft; Z79.82 Long term (current) use of aspirin; Z79.84 Long term (current) use of oral hypoglycemic drugs; Z79.4 Long term (current) use of insulin; Z79.899 Other long term (current) drug therapy
CPT/HCPCS: 36415; 71045; 80053; 83735; 83880; 84484; 85025; 85730; 93005; 96365; 96375; 99285-25; A9270-GY; J1644; J1938; J3010

== ENCOUNTER 2025-03-06 07:46 | Emergency (ER) | payer MEDICAID, MEDICARE ==
[2025-03-06] MEDS ORDERED: Sodium Chloride 0.9% 10 ML Syringe FLUSH PRN (08:06)
[2025-03-06 08:22] LABS: BASOPHILS PERCENT AUTO 0.3 % (0.0-1.0); EOSINOPHILS PERCENT AUTO 7.8 % (1.0-3.0); LYMPHOCYTES PERCENT AUTO 9.6 % (20.5-50.1); MONOCYTES PERCENT AUTO 5.6 % (2-8); NEUTROPHILS PERCENT AUTO 76.7 % (42.2-75.2); PLATELET COUNT,PLT 103 10^3/uL (150-450); RED BLOOD CELL COUNT 3.02 10^6/uL (4.2-5.4); WHITE BLOOD CELL COUNT,WBC 11.9 10^3/uL (5.0-10.0)
[2025-03-06 08:43] LABS: B-TYPE NATRIURETIC PEPTIDE,BNP > 5000 pg/ml (0-100)
[2025-03-06 08:49] LABS: ALANINE AMINOTRANSFERASE,ALT 31 U/L (14-59); ASPARTATE AMNIOTRANSFERASE,AST 70 U/L (15-37); BILIRUBIN TOTAL 1.7 mg/dL (0.2-1.0); BLOOD UREA NITROGEN,BUN 19 mg/dL (7-18); CARBON DIOXIDE,CO2 27 mmol/L (21-32); CHLORIDE,CL 100 mmol/L (98-107); CREATININE 2.54 mg/dL (0.55-1.02); GLUCOSE RANDOM 137 mg/dL (70-99); POTASSIUM,K 4.1 mmol/L (3.5-5.1); PROTEIN TOTAL,TP 7.4 g/dL (6.4-8.2); SODIUM,NA 139 mmol/L (136-145)
[2025-03-06 08:53] LABS: A/G RATIO 0.68; ESTIMATED GFR 20 mL/min (>=60)
[2025-03-06] MEDS: Furosemide 40 MG/4 ML VIAL IVPUSH ONE (09:36)
[2025-03-06 11:11] VITALS: BP 138/78; PULSE 81
== END 2025-03-06 14:30 | disposition other institution (70) ==
LOC: DL.ED 07:46
DX: I13.2 Hypertensive heart and chronic kidney disease with heart failure and with stage 5 chronic kidney disease, or end stage renal disease (principal); N18.6 End stage renal disease; I50.43 Acute on chronic combined systolic (congestive) and diastolic (congestive) heart failure; I25.10 Atherosclerotic heart disease of native coronary artery without angina pectoris; E78.00 Pure hypercholesterolemia, unspecified; I25.2 Old myocardial infarction; J45.909 Unspecified asthma, uncomplicated; E11.22 Type 2 diabetes mellitus with diabetic chronic kidney disease; E87.79 Other fluid overload; Z99.2 Dependence on renal dialysis; Z79.82 Long term (current) use of aspirin; Z79.899 Other long term (current) drug therapy; Z79.4 Long term (current) use of insulin; Z95.1 Presence of aortocoronary bypass graft; Z90.49 Acquired absence of other specified parts of digestive tract
CPT/HCPCS: 36415; 71045; 80053; 83735; 83880; 84484; 85025; 93005; 96374; 99285; J1938; 93010

== ENCOUNTER 2025-03-09 15:13 | Emergency (ER) | payer MEDICARE, OTHER ==
[2025-03-09 15:43] LABS: BASOPHILS PERCENT AUTO 0.1 % (0.0-1.0); EOSINOPHILS PERCENT AUTO 0.7 % (1.0-3.0); LYMPHOCYTES PERCENT AUTO 6.0 % (20.5-50.1); MONOCYTES PERCENT AUTO 6.4 % (2-8); NEUTROPHILS PERCENT AUTO 86.8 % (42.2-75.2); PLATELET COUNT,PLT 146 10^3/uL (150-450); RED BLOOD CELL COUNT 3.48 10^6/uL (4.2-5.4); WHITE BLOOD CELL COUNT,WBC 7.4 10^3/uL (5.0-10.0)
[2025-03-09 16:48] LABS: A/G RATIO 0.73; ALANINE AMINOTRANSFERASE,ALT 83.0 U/L (14-59); ASPARTATE AMNIOTRANSFERASE,AST 115.0 U/L (15-37); BILIRUBIN DIRECT 0.9 mg/dL (0.0-0.2); BILIRUBIN INDIRECT 0.9; BILIRUBIN TOTAL 1.8 mg/dL (0.2-1.0); BLOOD UREA NITROGEN,BUN 16.0 mg/dL (7-18); CARBON DIOXIDE,CO2 29.0 mmol/L (21-32); CHLORIDE,CL 99.0 mmol/L (98-107); CREATININE 3.43 mg/dL (0.55-1.02); EST CRCL DRUG DOSING (CG) 11.12 mL/min; ESTIMATED GFR 14.0 mL/min (>=60); GLUCOSE RANDOM 225.0 mg/dL (70-99); POTASSIUM,K 4.5 mmol/L (3.5-5.1); PROTEIN TOTAL,TP 7.8 g/dL (6.4-8.2); SODIUM,NA 139.0 mmol/L (136-145)
[2025-03-09 18:58] VITALS: BP 143/57; PULSE 60
== END 2025-03-09 18:57 | disposition home or self-care (01) ==
LOC: DL.ED 15:13
DX: S09.90XA Unspecified injury of head, initial encounter (principal); I25.10 Atherosclerotic heart disease of native coronary artery without angina pectoris; E78.00 Pure hypercholesterolemia, unspecified; I25.2 Old myocardial infarction; I10 Essential (primary) hypertension; E11.9 Type 2 diabetes mellitus without complications; R53.1 Weakness; Z91.148 Patient's other noncompliance with medication regimen for other reason; Z99.2 Dependence on renal dialysis; W18.39XA Other fall on same level, initial encounter; Y93.89 Activity, other specified
CPT/HCPCS: 36415; 70450; 71045; 72125; 80048; 80076; 82947; 84484; 85025; 87040; 99284; 99285

== ENCOUNTER 2025-03-10 11:06 | Emergency (ER) | payer MEDICARE ==
[2025-03-10] MEDS: 50% Dextrose in Water 50 ML Syringe IVPUSH ONE (11:16)
[2025-03-10 11:28] LABS: PLATELET COUNT,PLT 34 10^3/uL (150-450); RED BLOOD CELL COUNT 3.31 10^6/uL (4.2-5.4); WHITE BLOOD CELL COUNT,WBC 21.3 10^3/uL (5.0-10.0)
[2025-03-10 11:34] LABS: BASOPHILS PERCENT AUTO 0.1 % (0.0-1.0); EOSINOPHILS PERCENT AUTO 1.5 % (1.0-3.0); LYMPHOCYTES PERCENT AUTO 7.6 % (20.5-50.1); MONOCYTES PERCENT AUTO 7.9 % (2-8); NEUTROPHILS PERCENT AUTO 82.9 % (42.2-75.2)
[2025-03-10 11:48] LABS: A/G RATIO 0.8; ALANINE AMINOTRANSFERASE,ALT 539 U/L (14-59); BILIRUBIN DIRECT 1.4 mg/dL (0.0-0.2); BILIRUBIN INDIRECT 1.1; BILIRUBIN TOTAL 2.5 mg/dL (0.2-1.0); BLOOD UREA NITROGEN,BUN 7 mg/dL (7-18); CARBON DIOXIDE,CO2 33 mmol/L (21-32); CHLORIDE,CL 98 mmol/L (98-107); CREATININE 1.68 mg/dL (0.55-1.02); GLUCOSE RANDOM 59 mg/dL (70-99); POTASSIUM,K 3.8 mmol/L (3.5-5.1); PROTEIN TOTAL,TP 7.9 g/dL (6.4-8.2); SODIUM,NA 140 mmol/L (136-145)
[2025-03-10 11:52] LABS: ASPARTATE AMNIOTRANSFERASE,AST > 1000 U/L (15-37); B-TYPE NATRIURETIC PEPTIDE,BNP > 5000 pg/ml (0-100); ESTIMATED GFR 33 mL/min (>=60)
[2025-03-10 12:12] LABS: EOSINOPHILS PERCENT MAN 4 % (1-3); LYMPHOCYTES PERCENT MAN 9 % (20-50); MONOCYTES PERCENT MAN 5 % (2-8); SEG NEUTROPHILS PERCENT MAN 82 % (42-75)
[2025-03-10] MEDS: 50% Dextrose in Water 50 ML Syringe ONE (12:30)
[2025-03-10 12:55] LABS: LACTIC ACID 2.9 mmol/L (0.4-2.0)
[2025-03-10 16:15] VITALS: BP 155/56; PULSE 59
== END 2025-03-10 16:32 ==
LOC: DL.ED 11:06
DX: A41.9 Sepsis, unspecified organism (principal); R74.01 Elevation of levels of liver transaminase levels; D72.829 Elevated white blood cell count, unspecified; I10 Essential (primary) hypertension; I25.2 Old myocardial infarction; I25.10 Atherosclerotic heart disease of native coronary artery without angina pectoris; E78.00 Pure hypercholesterolemia, unspecified; E11.9 Type 2 diabetes mellitus without complications; M19.90 Unspecified osteoarthritis, unspecified site; Z79.899 Other long term (current) drug therapy; Z79.1 Long term (current) use of non-steroidal anti-inflammatories (NSAID); Z91.199 Patient's noncompliance with other medical treatment and regimen due to unspecified reason; Z90.49 Acquired absence of other specified parts of digestive tract; W19.XXXA Unspecified fall, initial encounter
CPT/HCPCS: 36415; 70450; 71045; 80048; 80076; 82947; 83605; 83880; 84484; 85025; 87040; 93005; 93010; 96361; 96365; 96368; 96375; 99285; J2543; J3373; J7042; J7050

== ENCOUNTER 2025-05-01 15:02 | Emergency (ER) | payer MEDICARE, OTHER ==
[2025-05-01] MEDS ORDERED: Sodium Chloride 0.9% 10 ML Syringe FLUSH PRN (15:22)
[2025-05-01 15:30] LABS: BASOPHILS PERCENT AUTO 0.4 % (0.0-1.0); EOSINOPHILS PERCENT AUTO 13.8 % (1.0-3.0); LYMPHOCYTES PERCENT AUTO 8.2 % (20.5-50.1); MONOCYTES PERCENT AUTO 4.7 % (2-8); NEUTROPHILS PERCENT AUTO 72.9 % (42.2-75.2); PLATELET COUNT,PLT 102 10^3/uL (150-450); RED BLOOD CELL COUNT 3.13 10^6/uL (4.2-5.4); WHITE BLOOD CELL COUNT,WBC 6.9 10^3/uL (5.0-10.0)
[2025-05-01 15:49] LABS: ALANINE AMINOTRANSFERASE,ALT 10 U/L (14-59); ASPARTATE AMNIOTRANSFERASE,AST 28 U/L (15-37); BILIRUBIN TOTAL 0.7 mg/dL (0.2-1.0); BLOOD UREA NITROGEN,BUN 27 mg/dL (7-18); CARBON DIOXIDE,CO2 29 mmol/L (21-32); CHLORIDE,CL 99 mmol/L (98-107); CREATININE 3.50 mg/dL (0.55-1.02); GLUCOSE RANDOM 120 mg/dL (70-99); POTASSIUM,K 4.1 mmol/L (3.5-5.1); PROTEIN TOTAL,TP 7.3 g/dL (6.4-8.2); SODIUM,NA 138 mmol/L (136-145)
[2025-05-01 15:53] LABS: A/G RATIO 0.62; ESTIMATED GFR 14 mL/min (>=60); ETHANOL BLOOD MEDICAL < 3 mg/dL (0)
[2025-05-01 19:11] VITALS: BP 136/56; PULSE 60
== END 2025-05-01 19:37 | disposition home or self-care (01) ==
LOC: DL.ED 15:02
DX: I12.0 Hypertensive chronic kidney disease with stage 5 chronic kidney disease or end stage renal disease (principal); N18.6 End stage renal disease; I25.10 Atherosclerotic heart disease of native coronary artery without angina pectoris; E78.00 Pure hypercholesterolemia, unspecified; I25.2 Old myocardial infarction; E11.9 Type 2 diabetes mellitus without complications; Z95.5 Presence of coronary angioplasty implant and graft; Z95.1 Presence of aortocoronary bypass graft; Z99.2 Dependence on renal dialysis; Z79.82 Long term (current) use of aspirin; Z79.899 Other long term (current) drug therapy; Z79.84 Long term (current) use of oral hypoglycemic drugs; Z79.4 Long term (current) use of insulin; W18.39XA Other fall on same level, initial encounter
CPT/HCPCS: 36415; 70450; 71045; 72125; 80053; 80307; 83735; 83880; 84484; 85025; 85379; 99285

== ENCOUNTER 2025-05-05 13:18 | Emergency (ER) | payer MEDICARE, OTHER ==
[2025-05-05] MEDS ORDERED: Sodium Chloride 0.9% 10 ML Syringe FLUSH PRN (13:27)
[2025-05-05 13:42] LABS: BASOPHILS PERCENT AUTO 0.5 % (0.0-1.0); EOSINOPHILS PERCENT AUTO 15.8 % (1.0-3.0); LYMPHOCYTES PERCENT AUTO 13.9 % (20.5-50.1); MONOCYTES PERCENT AUTO 13.4 % (2-8); NEUTROPHILS PERCENT AUTO 56.4 % (42.2-75.2); PLATELET COUNT,PLT 94 10^3/uL (150-450); RED BLOOD CELL COUNT 2.94 10^6/uL (4.2-5.4); WHITE BLOOD CELL COUNT,WBC 6.2 10^3/uL (5.0-10.0)
[2025-05-05 14:01] LABS: B-TYPE NATRIURETIC PEPTIDE,BNP > 5000 pg/ml (0-100)
[2025-05-05 14:09] LABS: ALANINE AMINOTRANSFERASE,ALT 13 U/L (14-59); ASPARTATE AMNIOTRANSFERASE,AST 27 U/L (15-37); BILIRUBIN TOTAL 0.7 mg/dL (0.2-1.0); BLOOD UREA NITROGEN,BUN 57 mg/dL (7-18); CARBON DIOXIDE,CO2 26 mmol/L (21-32); CHLORIDE,CL 101 mmol/L (98-107); CREATININE 5.33 mg/dL (0.55-1.02); GLUCOSE RANDOM 121 mg/dL (70-99); PHOSPHORUS 5.7 mg/dL (2.6-4.7); POTASSIUM,K 3.5 mmol/L (3.5-5.1); PROTEIN TOTAL,TP 7.0 g/dL (6.4-8.2); SODIUM,NA 140 mmol/L (136-145)
[2025-05-05 14:15] LABS: A/G RATIO 0.59; ESTIMATED GFR 8 mL/min (>=60)
[2025-05-05 14:55] VITALS: BP 147/57; PULSE 60
== END 2025-05-05 15:37 ==
LOC: DL.ED 13:18
DX: E87.79 Other fluid overload (principal); I12.9 Hypertensive chronic kidney disease with stage 1 through stage 4 chronic kidney disease, or unspecified chronic kidney disease; N18.9 Chronic kidney disease, unspecified; E11.22 Type 2 diabetes mellitus with diabetic chronic kidney disease; I25.10 Atherosclerotic heart disease of native coronary artery without angina pectoris; E78.00 Pure hypercholesterolemia, unspecified; I25.2 Old myocardial infarction; J45.909 Unspecified asthma, uncomplicated; Z95.1 Presence of aortocoronary bypass graft; Z79.899 Other long term (current) drug therapy; Z79.84 Long term (current) use of oral hypoglycemic drugs; Z79.82 Long term (current) use of aspirin; Z99.2 Dependence on renal dialysis
CPT/HCPCS: 36415; 71045; 80053; 83735; 83880; 84100; 85025; 93005; 93010; 99284; 99285